=== PATIENT | female | born 1955 | race Caucasian/White ===

== ENCOUNTER 2019-04-01 11:15 | Inpatient (IN) ==
--- NOTE | 2019-04-01 12:29 | XRay Report ---
XR chest 1V portable HISTORY: 63 years-old Female Dyspnea acute shortness of breath COMPARISON: None available TECHNIQUE: Portable AP view of the chest FINDINGS: Cardiac silhouette is enlarged. There is mild pulmonary vascular congestion. No pneumothorax, large p leural effusion or focal airspace consolidation. No overt pulmonary edema. Degenerative changes of th e shoulders and spine. IMPRESSION: 1. Cardiomegaly with pulmonary vascular congestion. 2. No focal airspace consolidation to suggest pneumonia. The above report was generated using voice recognition software. It may contain grammatical, syntax o r spelling errors. Electronically signed by: Los Diego M.D. 04/01/2019 12:28 PM
[2019-04-01] MEDS ORDERED: ALBUT/IPRATROP 3MG/0.5MG NEB 3 ML VIAL NEB STA (12:47)
[2019-04-01] MEDS ORDERED: methylPREDNISolone 125 MG/2 ML VIAL IV STA ×2 (12:47→15:16)
[2019-04-01 13:04] LABS: Basophils # (auto) 0.02 K/uL (0-0.2); Basophils % (auto) 0.1 %; Eosinophils # (auto) 0.06 K/uL (0-0.5); Eosinophils % (auto) 0.4 %; Hematocrit (blood only) 25.5 % (37-47); Hemoglobin 8.1 g/dL (12.0-16.0); Immature Granulocytes # (auto) 0.16 K/uL (0.00-0.02); Immature Granulocytes % (auto) 1.1 %; Lymphocytes # (auto) 0.65 K/uL (1.2-3.4); Lymphocytes % (auto) 4.6 %; Mean Corpuscular Hemoglobin 33.3 pg (25-34); Mean Corpuscular Hgb Conc 31.8 g/dL (32-36); Mean Corpuscular Volume 104.9 fL (80-100); Mean Platelet Volume 8.7 fL (7.4-10.4); Monocytes # (auto) 0.89 K/uL (0.11-0.59); Monocytes % (auto) 6.2 %; Neutrophils # (auto) 12.49 K/uL (1.4-6.5); Neutrophils % (auto) 87.6 %; Platelet Count 320 K/uL (130-400); RDW Coefficient of Variation 17.3 % (11.5-14.5); RDW Standard Deviation 66.7 fL (36.4-46.3); Red Blood Count 2.43 M/uL (4.2-5.4); White Blood Count 14.27 K/uL (4.8-10.8)
[2019-04-01 13:08] LABS: Base Excess VBG 7.9 mEq/L; Oxygen Saturation VBG 83.3 %; pH VBG 7.43 (7.36-7.41)
[2019-04-01 13:15] LABS: INR 1.1 (0.9-1.1); Partial Thromboplastin Time 26.2 Seconds (21.0-31.0); Prothrombin Time 11.2 Seconds (9.0-12.0)
[2019-04-01 13:21] LABS: Albumin Level 3.4 gm/dl (3.4-5.0); BUN Creatinine Ratio 16.3 (10-20); Calcium 8.3 mg/dl (8.5-10.1); Creatinine Clr Calc Pharmacy 47.5 ml/min; Est GFR (African American) 41.2; Est GFR (Non-African American) 35.5; Magnesium 1.8 mg/dl (1.8-2.4); Potassium 4.2 mmol/L (3.5-5.1)
[2019-04-01] MEDS: SODIUM CHLORIDE 0.9% 1000ML 1,000 ML IV SCH ×2 (13:23→22:10)
[2019-04-01 13:31] LABS: Albumin Globulin Ratio 0.9 (0.9-2); Bilirubin,Total 0.4 mg/dl (0.2-1); Globulin 3.9 gm/dl (2.5-4.0); Total Protein 7.3 gm/dl (6.4-8.2); Troponin I 0.17 ng/ml (0-0.045)
--- NOTE | 2019-04-01 14:10 | Emergency Department Note ---
Entered by Jarred Ram acting as a scribe for ED Provider Note CHIEF COMPLAINT: Shortness of breath HISTORY OF PRESENT ILLNESS: The patient is a 63 year old female that presents to the ED with a chief complaint of constant shortness of breath that started about 2 days ago. The patient states she has a history of asthma but is not a smoker nor has she been exposed to any chemicals or gases. Per the patient's EMR she had a uterine biopsy done 2 days ago and was kept overnight in the hospital. During this time she had trouble keeping her pulse ox up however she was not discharged with supplemental oxygen. The patient adds that this morning she woke up in the bathr oom and has no recollection of how she got there. When EMS arrived on scene the patient was confused with a pulse ox of 82% on room air. The patient was given a duoneb and albuterol neb by EMS for her wheezing. She was then placed on 2L NC and her pulse ox increased to 87%. After her pulse ox improved she became more alert and oriented, per EMS. The patient endorses a a cough that she has had since being admitted to the [facility] for 3 weeks due to pneumonia. The patient also mentioned that she has had a sore throat since being intubated for the biopsy. The patient reports no bleeding secondary to the biopsy but she does have some discharge. Per the triage note, EMS noticed pill bottles of Oxycodone, Methadone, Ativan and Ambien at the patient's home. Pt denies headache, fevers, chills, diaphoresis, visual changes, neck pain, chest pain, nausea, vomiting, abdominal pain, back pain, melena, hematochezia, urinary symptoms, numbness, weakness, lymphadenopathy, rash, or other complaints. REVIEW OF SYSTEMS: See HPI for pertinent positives and negatives. A total of ten systems were reviewed and were otherwise negative. PMHx/PSHx: Vulvar cancer, PNA, Sepsis, and Respiratory failure. SOCIAL HISTORY: Patient lives at home. PHYSICAL EXAM: GENERAL: Awake, alert, tired-appearing, in no distress HENT: Normocephalic, atraumatic. Oropharynx unremarkable. EYES: Normal conjunctiva. Sclera non-icteric. NECK: Inspection normal. Non-tender. Supple. No nuchal rigidity. FROM. No masses. RESPIRATORY: Coarse breath sounds, diminished bilaterally. No wheezes. No rales. Normal respiratory effort. CARDIAC: Normal rate. Normal rhythm. No murmurs. No rubs. Extremities warm and well perfused. Pulses equal. No JVD. GI: Soft, non-distended. No tenderness to palpation. No rebound or guarding. No masses. RECTAL: Deferred. MUSCULOSKELETAL: Atraumatic. Chest examination reveals no tenderness. The back is symmetrical on inspection without obvious abnormality. There is no CVA tenderness to palpation. No joint edema. LOWER EXTREMITIES: Calves are equal size bilaterally and non-tender. No edema. No discoloration. NEURO: Normal sensorium. Oriented. No sensory or motor deficits noted. GCS 15 SKIN: No rash or jaundice noted. EMERGENCY DEPARTMENT COURSE: 1242: Past medical records reviewed. The patient was evaluated in room C07, and a complete history and physical examination were performed. 1405: I spoke to Dr. Chalino Rothman [facility] Hospitalist about the patient's case. He is going to review the patient's medical record to see who admitted her at [facility]. 1415: I reevaluated the patient and she is resting in bed. I updated her on results and the plan of treatment which she is agreeable with. I spoke to Dr. Chalino Rothman [facility] Hospitalist and he is going to accept the patient for further evaluation. 1517: I reassessed the patient and discussed getting a CT scan of her chest. She agreed. MEDICAL DECISION MAKING: Prior records/ancillary studies reviewed. The patient had her [employer] procedure and was observed overnight due to postop hypoxia. She was anemic on laboratory studies there with a hemoglobin of 9. Records were obtained from her [facility] hospital admission for pneumonia. CT PE study did not reveal any pulmonary embolus but did reveal infiltrate. She was treated with IV Rocephin and Zithromax. The Zithromax was then discontinued secondary to QTC prolongation. Nursing notes reviewed and agree them. The patient's history was concerning for hypoxia, altered mental status. Differential diagnosis: Etiologies such as infection, hypoglycemia, electrolyte abnormalities, cardiac sources, intracerebral event, toxicologic, neurologic, pulmonary embolism, ACS, asthma, COPD, pneumonia, as well as others were entertained. Physical examination: As above. The patient was oriented. Her hypoxia was controlled with supplemental oxygen. ER treatment provided: IV Lock Normal saline hydration Supplemental oxygen DuoNeb Solu-Medrol On reassessment the patient felt better. The patient was prepped for CT imaging due to her dye allergy. She was given IV Solu-Medrol, Pepcid and Benadryl. She also has significant fears of claustrophobia about imaging and was given Ativan IV 1 mg Diagnostics interpretation by me: ECG: No acute ischemia. The labs revealed a moderate leukocytosis and anemia on CBC. Chemistry panel revealed borderline renal function but no significant electrolyte abnormality. No clear sign of UTI. BNP moderately elevated. Troponin mildly elevated as well. Imaging studies: Chest x-ray negative for pneumonia. There is cardiomegaly present and some congestion. Head CT and CT PE study as below. No acute intracranial process. No obvious pulmonary emboli noted. Ultrasound imaging of her legs did not reveal any evidence of DVT. The patient had altered mental status and market hypoxia noted at home. She does have a history of asthma. She had wheezing for EMS and was given 2 breathing treatments and a third here. She is feeling somewhat better at this time. She does have an elevated troponin as well as a BNP. She does not have any history of CHF by her report. Further management is necessary in the hospital. Consultation: A consultation was placed with the hospitalist. The case was discussed and diagnostics were reviewed. The patient was evaluated in the ER for further treatment. Critical Care: I have personally spent greater than 38 minutes of critical care time in the direct management of this patient. This includes bedside care, interpretation of diagnostic studies, and testing, discussion with consultants, patient, and family members, and other required patient management activities. This 34 minutes is in excess of all separately billable procedures. IMPRESSION: Hypoxia Altered mental status Elevated troponin Anemia CHF PLAN: Being evaluated by hospitalist The sauloibbigg's documentation has been prepared under my direction and personally reviewed by me in its entirety. I confirm that the note above accurately reflects all work, treatment, procedures, and medical decision making performed by me. Impression & Plan Hypoxia, CHF (congestive heart failure), Altered mental status, Elevated troponin, Anemia Past Med/Surg History Medical History Pneumonia Respiratory failure Sepsis Vulvar cancer Family History Other No pertinent family history in first degree relatives Social History Preferred Language: Occitan Beliefs That Will Affect Care: None Current Living Situation: Alone Feels Safe at Home: Yes Smoking Status: Never smoker Results & Data Vital Signs Vital Signs - 24 hr 04/01/19 11:31 04/01/19 12:11 04/01/19 13:03 Temperature 37.0 C Temperature Source Oral Pulse Rate 70 Pulse Rate [Apical] 70 Respiratory Rate 20 16 Respiratory Effort / Characteristics Non-Labored Spontaneous Non-Labored Spontaneous Respiratory Depth Normal Normal Respiratory Pattern Regular Regular Blood Pressure 158/76 H Blood Pressure [Right Arm] 178/93 H Blood Pressure Mean 103 Blood Pressure Mean [Right Arm] 121 Blood Pressure Position Lying Blood Pressure Position [Right Arm] Lying Pulse Oximetry 87 L 95 100 Oxygen Delivery Method Room Air Nasal Cannula Nasal Cannula Oxygen Flow Rate 2 2 Sepsis Recent Fever Within 48 Hours No Sepsis New/Unexplained Change in Mental Status No Sepsis Action Taken by Nursing No Action Required 04/01/19 13:06 04/01/19 14:13 04/01/19 16:01 Temperature Temperature Source Pulse Rate Pulse Rate [Apical] 70 82 73 Respiratory Rate 18 20 19 Respiratory Effort / Characteristics Non-Labored Spontaneous Non-Labored Spontaneous Respiratory Depth Normal Respiratory Pattern Blood Pressure Blood Pressure [Right Arm] 179/88 H 165/97 H Blood Pressure Mean Blood Pressure Mean [Right Arm] 118 119 Blood Pressure Position Blood Pressure Position [Right Arm] Lying Lying Pulse Oximetry 100 93 95 Oxygen Delivery Method Nasal Cannula Nasal Cannula Nasal Cannula Oxygen Flow Rate 2 2 2 Sepsis Recent Fever Within 48 Hours Sepsis New/Unexplained Change in Mental Status Sepsis Action Taken by Half-Way Medications Current Medication List: was personally reviewed by me Laboratory Data Attestation: I reviewed the patient's lab results. Result diagrams: 04/01/19 12:53 04/01/19 12:53 Lab Results 04/01/19 04/01/19 04/01/19 Range/Units 12:53 12:53 12:53 WBC 14.27 H (4.8-10.8) K/uL RBC 2.43 L (4.2-5.4) M/uL Hgb 8.1 L (12.0-16.0) g/dL Hct 25.5 L (37-47) % MCV 104.9 H (80-100) fL MCH 33.3 (25-34) pg MCHC 31.8 L (32-36) g/dL RDW Std Deviation 66.7 H (36.4-46.3) fL RDW Coeff of Rylan 17.3 H (11.5-14.5) % Plt Count 320 (130-400) K/uL MPV 8.7 (7.4-10.4) fL Immature Gran % (Auto) 1.1 % Neut % (Auto) 87.6 % Lymph % (Auto) 4.6 % Graham % (Auto) 6.2 % Eos % (Auto) 0.4 % Baso % (Auto) 0.1 % Immature Gran # (Auto) 0.16 H (0.00-0.02) K/uL Neut # (Auto) 12.49 H (1.4-6.5) K/uL Lymph # (Auto) 0.65 L (1.2-3.4) K/uL Graham # (Auto) 0.89 H (0.11-0.59) K/uL Eos # (Auto) 0.06 (0-0.5) K/uL Baso # (Auto) 0.02 (0-0.2) K/uL PT 11.2 (9.0-12.0) Seconds INR 1.1 (0.9-1.1) APTT 26.2 (21.0-31.0) Seconds PTT Ratio 1.0 VBG pH (7.36-7.41) VBG pCO2 (38-50) mmHg VBG pO2 mmHg VBG HCO3 mmol/L VBG O2 Saturation % VBG Base Excess mEq/L Barometric Pressure mm/Hg Sodium 137 (136-145) mmol/L Potassium 4.2 (3.5-5.1) mmol/L Chloride 99 (98-107) mmol/L Carbon Dioxide 31 (21-32) mmol/L Anion Gap 7.0 (3-11) BUN 25 H (7-18) mg/dl Creatinine 1.55 H (0.6-1.2) mg/dl Est Cr Clr Drug Dosing 47.5 ml/min Est GFR ( Amer) 41.2 Est GFR (Non-Af Amer) 35.5 BUN/Creatinine Ratio 16.3 (10-20) Glucose 99 (70-99) mg/dl POC Lactic Acid Roger (0.90-1.70) mmol/L Calcium 8.3 L (8.5-10.1) mg/dl Magnesium 1.8 (1.8-2.4) mg/dl Total Bilirubin 0.4 (0.2-1) mg/dl AST 51 H (15-37) U/L ALT 20 (12-78) U/L Alkaline Phosphatase 91 (45-117) U/L Total Creatine Kinase 79 (26-192) U/L Troponin I 0.170 H* (0-0.045) ng/ml NT-Pro-B Natriuret Pep 25585 H (0-900) pg/ml Total Protein 7.3 (6.4-8.2) gm/dl Albumin 3.4 (3.4-5.0) gm/dl Globulin 3.9 (2.5-4.0) gm/dl Albumin/Globulin Ratio 0.9 (0.9-2) Urine Color Urine Appearance (Clear) Urine pH (4.5-7.5) Ur Specific Waldron (1.000-1.030) Urine Protein (Negative) Urine Glucose (UA) (Negative) Urine Ketones (Negative) Urine Blood (Negative) Urine Nitrite (Negative) Urine Bilirubin (Negative) Urine Urobilinogen (Negative) Ur Leukocyte Esterase (Negative) Urine WBC (Auto) (0-5) /hpf Urine RBC (Auto) (0-4) /hpf U Hyaline Cast (Auto) (0-5) /lpf U Epithel Cells (Auto) (0-5) /lpf Urine Bacteria (Auto) (Negative) 04/01/19 04/01/19 04/01/19 Range/Units 12:53 13:00 14:18 WBC (4.8-10.8) K/uL RBC (4.2-5.4) M/uL Hgb (12.0-16.0) g/dL Hct (37-47) % MCV (80-100) fL MCH (25-34) pg MCHC (32-36) g/dL RDW Std Deviation (36.4-46.3) fL RDW Coeff of Rylan (11.5-14.5) % Plt Count (130-400) K/uL MPV (7.4-10.4) fL Immature Gran % (Auto) % Neut % (Auto) % Lymph % (Auto) % Graham % (Auto) % Eos % (Auto) % Baso % (Auto) % Immature Gran # (Auto) (0.00-0.02) K/uL Neut # (Auto) (1.4-6.5) K/uL Lymph # (Auto) (1.2-3.4) K/uL Graham # (Auto) (0.11-0.59) K/uL Eos # (Auto) (0-0.5) K/uL Baso # (Auto) (0-0.2) K/uL PT (9.0-12.0) Seconds INR (0.9-1.1) APTT (21.0-31.0) Seconds PTT Ratio VBG pH 7.43 H (7.36-7.41) VBG pCO2 51 H (38-50) mmHg VBG pO2 51 mmHg VBG HCO3 33 mmol/L VBG O2 Saturation 83.3 % VBG Base Excess 7.9 mEq/L Barometric Pressure 736.0 mm/Hg Sodium (136-145) mmol/L Potassium (3.5-5.1) mmol/L Chloride (98-107) mmol/L Carbon Dioxide (21-32) mmol/L Anion Gap (3-11) BUN (7-18) mg/dl Creatinine (0.6-1.2) mg/dl Est Cr Clr Drug Dosing ml/min Est GFR ( Amer) Est GFR (Non-Af Amer) BUN/Creatinine Ratio (10-20) Glucose (70-99) mg/dl POC Lactic Acid Roger 0.93 (0.90-1.70) mmol/L Calcium (8.5-10.1) mg/dl Magnesium (1.8-2.4) mg/dl Total Bilirubin (0.2-1) mg/dl AST (15-37) U/L ALT (12-78) U/L Alkaline Phosphatase (45-117) U/L Total Creatine Kinase (26-192) U/L Troponin I (0-0.045) ng/ml NT-Pro-B Natriuret Pep (0-900) pg/ml Total Protein (6.4-8.2) gm/dl Albumin (3.4-5.0) gm/dl Globulin (2.5-4.0) gm/dl Albumin/Globulin Ratio (0.9-2) Urine Color Yellow Urine Appearance Cloudy A (Clear) Urine pH 5.0 (4.5-7.5) Ur Specific Waldron 1.020 (1.000-1.030) Urine Protein 1+ H (Negative) Urine Glucose (UA) Negative (Negative) Urine Ketones Negative (Negative) Urine Blood 2+ H (Negative) Urine Nitrite Negative (Negative) Urine Bilirubin Negative (Negative) Urine Urobilinogen Negative (Negative) Ur Leukocyte Esterase 2+ H (Negative) Urine WBC (Auto) >30 H (0-5) /hpf Urine RBC (Auto) 5-10 H (0-4) /hpf U Hyaline Cast (Auto) 5-10 H (0-5) /lpf U Epithel Cells (Auto) 5-10 H (0-5) /lpf Urine Bacteria (Auto) Negative (Negative) Administered Medications Albuterol (Duoneb) 3 ml NEB Q6R TERESA Stop: 05/01/19 18:59 Last Admin: 04/01/19 19:19 Dose: 3 ml Documented by: [id number] Sodium Chloride (Nss 1000ml) 1,000 mls @ 125 mls/hr IV .Q8H TERESA Stop: 05/01/19 12:14 Last Admin: 04/01/19 13:23 Dose: 125 mls/hr Documented by: [id number] Ioversol (Optiray 320 125ml) 118 ml IV ONCE PRN PRN Reason: Interaction Checking Stop: 04/05/19 16:37 Last Admin: 04/01/19 16:38 Dose: 118 ml Documented by: [id number] Discontinued Medications Albuterol (Duoneb) 3 ml NEB NOW STA Stop: 04/01/19 12:48 Last Admin: 04/01/19 13:04 Dose: 3 ml Documented by: [id number] Diphenhydramine HCl (Benadryl) 25 mg IV NOW STA Stop: 04/01/19 15:17 Last Admin: 04/01/19 15:54 Dose: 25 mg Documented by: [id number] Famotidine (Pepcid 20mg Iv Push) Confirm Administered Dose 20 mg IV .STK-MED ONE Stop: 04/01/19 15:53 Last Admin: 04/01/19 15:54 Dose: 20 mg Documented by: [id number] Lorazepam (Ativan) 1 mg in 2 mls @ 2 mls/min IV NOW STA Stop: 04/01/19 15:17 Last Admin: 04/01/19 15:54 Dose: 2 mls/min Documented by: [id number] Methylprednisolone (Solumedrol) 125 mg IV NOW STA Stop: 04/01/19 12:48 Last Admin: 04/01/19 13:23 Dose: 125 mg Documented by: [id number] Methylprednisolone (Solumedrol) 125 mg IV NOW STA Stop: 04/01/19 15:17 Last Admin: 04/01/19 17:37 Dose: Not Given Documented by: [id number] Imaging Data Radiologist's Impression: Radiology results as stated below per my review and the radiologist's interpretation: XR chest 1V portable HISTORY: 63 years-old Female Dyspnea acute shortness of breath COMPARISON: None available TECHNIQUE: Portable AP view of the chest FINDINGS: Cardiac silhouette is enlarged. There is mild pulmonary vascular congestion. No pneumothorax, large pleural effusion or focal airspace consolidation. No overt pulmonary edema. Degenerative changes of the shoulders and spine. IMPRESSION: 1. Cardiomegaly with pulmonary vascular congestion. 2. No focal airspace consolidation to suggest pneumonia. The above report was generated using voice recognition software. It may contain grammatical, syntax or spelling errors. Electronically signed by: Los Diego M.D. 04/01/2019 12:28 PM BILATERAL LOWER EXTREMITY VENOUS DOPPLER HISTORY: Acute pain and swelling of the bilateral lower extremities eval for dvt COMPARISON STUDY: None. FINDINGS: Study is mildly limited secondary to patient body habitus with limited evaluation of the calf veins. There is normal compressibility, flow, and augmentation within the bilateral lower extremity deep venous systems. IMPRESSION: No DVT within the right or left lower extremity. Electronically signed by: Los Diego M.D. 04/01/2019 2:[address] CT DOSE: HISTORY: Syncope. Altered mental status. TECHNIQUE: Multiaxial CT images of the head were performed without the use of intravenous contrast. Automated exposure control was utilized for this study. A dose lowering technique was utilized adhering to the principles of ALARA. Comparison: None. Findings: Mild motion artifact. The paranasal sinuses and mastoid air cells are clear. The calvarium and skull base are intact. The ventricles and sulci are within normal limits. There is no mass, hematoma, midline shift, or acute infarct. Impression: No acute intracranial abnormality. Electronically signed by: Lit Nash M.D. 04/01/2019 4:[address] ANGIOGRAM OF THE CHEST CLINICAL HISTORY: Atypical chest pain. Possible pulmonary embolism. SHORTNESS OF BREATH COMPARISON STUDY: Chest x-ray dated 04/01/2019 TECHNIQUE: Following the IV administration of 118 mL of Optiray-320, CT angiogram of the thorax was performed from the thoracic inlet to the lung bases utilizing the pulmonary embolus protocol. Images are reviewed in the axial, sagittal, and coronal planes. IV contrast was administered without complication. MIP imaging was performed. A dose lowering technique was utilized adhering to the principles of ALARA. CT DOSE: 1755.90 mGy.cm FINDINGS: No pathologically enlarged axillary mediastinal or hilar lymph nodes were visualized. There is no evidence of thoracic aortic aneurysm. There is decreased signal within the right innominate artery just proximal to the common carotid branch. It is unclear whether this represents thrombus or artifact. No central embolus is visualized. Evaluation of subsegmental emboli is limited due to respiratory motion artifact as well as artifact due to patient's body habitus, inability to be scanned with arms above her head. No pleural effusions are visualized. There are low lung volumes. Mild interstitial prominence is likely related to hypoventilatory study. There is no lobar consolidation. IMPRESSION: 1. Somewhat limited study from a technical standpoint. No central pulmonary emboli identified. 2. Hypoventilatory study. No evidence of lobar consolidation 3. Right innominate artery thrombus versus artifact Electronically signed by: Brenton Kilpatrick M.D. 04/01/2019 4:46 PM ECG Data Attestation: I personally reviewed and interpreted this ECG as follows: Indication: + SOB/dyspnea Rate (beats per minute): 71 Rhythm: sinus rhythm ECG Intervals/blocks: + Right Bundle branch block (incomplete) and + Normal QRS ECG Lester: + Normal ECG ST segments: no ST depression and no ST elevation ECG Findings: + PACs and + Other (nonspecific ST segment abnormalities); no PVCs Blood Pressure Blood Pressure Findings: Elevated blood pressure Blood Pressure Disposition: further management by hospitalist Discharge Plan Visit Data *Final* Discharge Date/Time: 04/01/19 18:55 Chief Complaint: Respiratory Problems ED Provider: Khadar Moulton Discharge Problem: Hypoxia, CHF (congestive heart failure), Altered mental status, Elevated troponin, Anemia Patient Disposition: Admitted As Inpatient Discharge Instructions Interventions: ED Discharge Assessment Last Done: 04/01/19 18:55 Discharge Problem: CHF (congestive heart failure) Qualifiers: Heart failure type: unspecified Heart failure chronicity: acute Qualified Code(s): I50.9 - Heart failure, unspecified Altered mental status Qualifiers: Altered mental status type: unspecified Qualified Code(s): R41.82 - Altered mental status, unspecified Anemia Qualifiers: Anemia type: unspecified type Qualified Code(s): D64.9 - Anemia, unspecified The scribe's documentation has been prepared under my direction and personally reviewed by me in its entirety. I confirm that the note above accurately reflects all work, treatment, procedures, and medical decision making performed by me.
[2019-04-01 14:35] LABS: Appearance Urine Cloudy (Clear); Bacteria Urine Automated Negative (Negative); Bilirubin Urine Negative (Negative); Blood Urine 2+ (Negative); Color Urine Yellow; Glucose Urine UA Negative (Negative); Ketones Urine Negative (Negative); Leukocyte Esterase Urine 2+ (Negative); Nitrite Urine Negative (Negative); Protein Urine 1+ (Negative); Urobilinogen Urine Negative (Negative); WBC Urine Automated >30 /hpf (0-5)
--- NOTE | 2019-04-01 14:51 | Ultrasound Report ---
BILATERAL LOWER EXTREMITY VENOUS DOPPLER HISTORY: Acute pain and swelling of the bilateral lower extremities eval for dvt COMPARISON STUDY: None. FINDINGS: Study is mildly limited secondary to patient body habitus with limited evaluation of the ca lf veins. There is normal compressibility, flow, and augmentation within the bilateral lower extremit y deep venous systems. IMPRESSION: No DVT within the right or left lower extremity. Electronically signed by: Los Diego M.D. 04/01/2019 2:50 PM
[2019-04-01] MEDS ORDERED: LORazepam 1 MG/2 ML VIAL IV STA (15:16)
[2019-04-01] MEDS ORDERED: DiphenhydrAMINE HCL 50 MG/ML VIAL IV STA (15:16)
[2019-04-01] MEDS ORDERED: FAMOTIDINE 20 MG in SYRINGE 3 ML IV SCH (15:30)
[2019-04-01] MEDS ORDERED: FAMOTIDINE 20MG/5ML IV PUSH IV ONE (15:52)
[2019-04-01] MEDS ORDERED: ACETAMINOPHEN 325 MG TAB PO PRN (16:28)
[2019-04-01] MEDS ORDERED: ONDANSETRON INJ 2 MG/ML 2 ML VIAL IV PRN (16:28)
[2019-04-01] MEDS ORDERED: ZOLPIDEM TARTRATE 5 MG TAB PO PRN (16:28)
[2019-04-01] MEDS ORDERED: MAGNESIUM HYDROXIDE SUSP 30 ML UDC PO PRN (16:28)
[2019-04-01] MEDS ORDERED: ALUMINUM/MAGNESIUM SUSP 30 ML UDC PO PRN (16:28)
[2019-04-01] MEDS ORDERED: POLYETHYLENE (MIRALAX) 17 GM PACK PO PRN (16:28)
[2019-04-01] MEDS ORDERED: NON-FORMULARY MEDICATION (Melatonin 5 MG) PO PRN (16:30)
[2019-04-01] MEDS ORDERED: LORazepam 0.5 MG TAB PO PRN (16:30)
[2019-04-01] MEDS ORDERED: ZOLPIDEM TARTRATE 10 MG TAB PO PRN (16:35)
[2019-04-01] MEDS ORDERED: OXYCODONE HCL IR 5 MG TAB (IMMEDIATE RELEASE) PO PRN (16:35)
[2019-04-01] MEDS ORDERED: OXYCODONE/ACETAMINOPHEN 5mg/325mg TAB PO PRN (16:35)
[2019-04-01] MEDS ORDERED: OPTIRAY 320 125ml IV PRN (16:38)
[2019-04-01] MEDS ORDERED: SILVER SULFADIAZINE 1% CR 50 GM JAR TOP SCH (16:45)
--- NOTE | 2019-04-01 16:45 | CT Scan Report ---
HEAD CT NONCONTRAST CT DOSE: HISTORY: Syncope. Altered mental status. TECHNIQUE: Multiaxial CT images of the head were performed without the use of intravenous contrast. A utomated exposure control was utilized for this study. A dose lowering technique was utilized adheri ng to the principles of ALARA. Comparison: None. Findings: Mild motion artifact. The paranasal sinuses and mastoid air cells are clear. The calvarium and skull base are intact. The ventricles and sulci are within normal limits. There is no mass, hemat miguel, midline shift, or acute infarct. Impression: No acute intracranial abnormality. Electronically signed by: Lit Nash M.D. 04/01/2019 4:44 PM
--- NOTE | 2019-04-01 16:54 | CT Scan Report ---
CT ANGIOGRAM OF THE CHEST CLINICAL HISTORY: Atypical chest pain. Possible pulmonary embolism. SHORTNESS OF BREATH COMPARISON STUDY: Chest x-ray dated 04/01/2019 TECHNIQUE: Following the IV administration of 118 mL of Optiray-320, CT angiogram of the thorax was p erformed from the thoracic inlet to the lung bases utilizing the pulmonary embolus protocol. Images a re reviewed in the axial, sagittal, and coronal planes. IV contrast was administered without complica tion. MIP imaging was performed. A dose lowering technique was utilized adhering to the principles o f ALARA. CT DOSE: 1755.90 mGy.cm FINDINGS: No pathologically enlarged axillary mediastinal or hilar lymph nodes were visualized. There is no evidence of thoracic aortic aneurysm. There is decreased signal within the right innomina te artery just proximal to the common carotid branch. It is unclear whether this represents thrombus or artifact. No central embolus is visualized. Evaluation of subsegmental emboli is limited due to respiratory mot ion artifact as well as artifact due to patient's body habitus, inability to be scanned with arms abo ve her head. No pleural effusions are visualized. There are low lung volumes. Mild interstitial prominence is likely related to hypoventilatory study. There is no lobar consolidation. IMPRESSION: 1. Somewhat limited study from a technical standpoint. No central pulmonary emboli identified. 2. Hypoventilatory study. No evidence of lobar consolidation 3. Right innominate artery thrombus versus artifact Electronically signed by: Brenton Kilpatrick M.D. 04/01/2019 4:46 PM
--- NOTE | 2019-04-01 17:03 | History & Physical Report ---
Date of Service April 01, 2019 Assessment & Plan (1) Acute respiratory failure with hypoxia: Confusion/hypoxic encephalopathy secondary to above, improved immediately after improving O2 sat Likely multifactorial secondary to CHF and COPD Also does have bronchitis versus early pneumonia CT angiogram done in ED and ruled out pulmonary embolism (2) Congestive heart failure, unspecified: Positive troponin likely demand ischemia Plan: admit to telemetry obtain serial cardiac enz pain management repeat EKG prn chest pain Check hemoglobin A1c/lipids to stratify patient risk factors I/Os 2Decho gentle diuresis, will only use 20 mg of Lasix IV twice daily especially with recent contrast exposure Mucomyst 600 twice daily x3 days for contrast-induced nephropathy control blood pressure, afterload and preload DVT prophylaxis (3) COPD exacerbation: Start patient on bronchodilators, DuoNeb inhalation nebulizer 4 times daily Hold of Solu-Medrol giving her active cancer Chest imaging reviewed, showed no active pneumonia but likely bacterial bronchitis Due to history of QTC prolongation we will hold of azithromycin Pulmonary consultation if no improvement as needed Patient will need pulmonary function test in 6 weeks after resolution (4) UTI (urinary tract infection): Follow-up blood cultures/urine culture Continue ceftriaxone Lactobacillus to prevent C. difficile (5) Vulvar cancer: Vulvar area appears to be inflamed, no erythema or abscess, director of software engineering advised her not to add her to put anything on it, refused nystatin powder (6) Atrial fibrillation: Continue Eliquis (7) Hypothyroidism: Continue Synthroid and check TSH (8) Chronic kidney disease, stage III (moderate): Monitor renal function closely History of Present Illness . 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 The day before yesterday she was admitted to [facility] for exam under anesthesia, vulvar biopsy and dilation and curettage, postprocedure she was hypoxic and she was kept for 2023 hrs. the next day she was discharged home. Patient stated that after she went home she was visited by some friends after the friend left she does not remember anything happen until she found herself sitting on the commode and was confused and not feeling well, she called her friend's to come and see her, on arrival she was confused he called 911 she was found to be hypoxic, 87% in room air required 2 L of oxygen and she was brought to the hospital for further evaluation. She stated that she takes Eliquis for atrial fibrillation but she had to stop it 2 days prior to the procedure, and then she said that she does not remember taking it after that as she was confused. She also stated that she has been coughing some yellowish sputum and wheezing. Due to radiation induced skin injury to her valvular area she has been followed up by pain management who had her on methadone 10 mg twice daily. And oxycodone, she does not think that she took any extra dose of her medicine. She will be admitted for further evaluation and management Allergies Allergy/AdvReac Type Severity Reaction Status Date / Time aspirin Allergy Intermediate HIVES, Unverified 04/01/19 15:16 ITCHING naproxen Allergy Intermediate HIVES Unverified 04/01/19 15:16 iodine Allergy Unknown Verified 07/01/16 08:06 CONTRASTMEDIA Allergy Unknown Unknown Uncoded 04/01/19 15:16 IV CONTRAST=RESPIRATORY Allergy Unknown Unknown Uncoded 04/01/19 15:16 DIFFICULTIES IV DYE Allergy Unknown Unknown Uncoded 04/01/19 15:16 PINEAPPLE=SWOLLEN LIPS AND Allergy Unknown Unknown Uncoded 04/01/19 15:16 TONGUE SMOKE Allergy Unknown Unknown Uncoded 04/01/19 15:16 Home Medications Home Medications Medication Instructions Recorded Confirmed Type amlodipine 10 mg PO DAILY 04/01/19 04/01/19 History amoxicillin 500 mg PO DIRECTED PRN 04/01/19 04/01/19 History apixaban [Eliquis] 5 mg PO BID 04/01/19 04/01/19 History bupropion HCl 150 mg PO QAM 04/01/19 04/01/19 History cyanocobalamin (vitamin B-12) 1,000 mcg PO DAILY 04/01/19 04/01/19 History [Vitamin B-12] cyanocobalamin (vitamin B-12) 50 mcg PO DAILY 04/01/19 04/01/19 History [Vitamin B-12] levothyroxine [Synthroid] 175 mcg PO DAILY 04/01/19 04/01/19 History lorazepam [Ativan] 0.5 mg PO BID PRN 04/01/19 04/01/19 History lorazepam [Ativan] 1 mg PO DIRECTED PRN 04/01/19 04/01/19 History losartan 100 mg PO DAILY 04/01/19 04/01/19 History melatonin 5 mg PO HS PRN 04/01/19 04/01/19 History metformin 500 mg PO DAILY 04/01/19 04/01/19 History methadone 0 mg PO Q12H 04/01/19 04/01/19 History oxycodone 10 mg PO Q4H PRN 04/01/19 04/01/19 History oxycodone-acetaminophen 1 tab PO Q4H PRN 04/01/19 04/01/19 History pantoprazole 40 mg PO BID 04/01/19 04/01/19 History phenazopyridine 200 mg PO TID 04/01/19 04/01/19 History silver sulfadiazine 1 applic TOPICAL DIRECTED 04/01/19 04/01/19 History zolpidem 10 mg PO HS PRN 04/01/19 04/01/19 History Past Med/Surg History Medical History Pneumonia Respiratory failure Sepsis Vulvar cancer Family History Other No pertinent family history in first degree relatives Social History Feels Safe at Home: Yes Smoking Status: Never smoker Review of Systems Review of Systems: Review of system Constitutional: No fever / no chills / no sweats / no weakness / no fatigue Eyes: no blurring of vision / no eye pain / no discharge / no redness ENT: no hearing loss / no epistaxis /no swallowing problems Respiratory: Shortness of breath, significant wheezing, productive cough/dry cough / no hemoptysis Cardiovascular: no Chest pain / no lower extremity edema / no palpitation Abdomen: no pain / no nausea / no vomiting / no constipation Musculoskeletal: no joint pain / no muscle pain / no joint swelling Genitourinary: no dysuria / no incontinence / no urinary retention Neurologic: no focal weakness / no numbness/tingling / no ataxia Psychiatric: no depression symptoms / no anxiety / no insomnia Endocrine: no excessive thirst / no excessive urination Hematologic: no abnormal bleeding / no bruising / no LN swelling Skin: No rash / no pallor Physical Exam Physical Exam: Physical examination General patient appears to be obese, comfortable, not in acute distress HEENT: Atraumatic , normocephalic /no jaundice /no pallor /anicteric /no dry muc ous membrane /normal external ear inspection Neck: Supple /no swelling /central trach Heart: S1/S2 normal/regular rate and rhythm/no gallop /no rub /no murmur Lungs: Decreased air entry bilaterally, generalized wheezing both lung black, scattered rhonchi, no chest wall tenderness Abdomen: Soft/nontender/no guarding/no rebound/no organomegaly/no pulsatile mass Musculoskeletal: No swelling/no edema/no tenderness/normal range of motion Neuro exam: Awake alert oriented 3/cranial nerves II through XII appear to be intact/sensation intact/moves all extremities/no abnormal movements Psychiatric evaluation: No depressed mood/normal affect Skin: No rash on exposed skin area/no erythema Extremity: Normal pulse/no pitting edema/no clubbing or cyanosis Endocrine/lymphatic: No obvious lymphadenopathy /no lymphedema Results & Data Vital Signs (Past 12 Hours) Vital Signs Temp Pulse Pulse Resp BP BP Pulse Ox 04/01/19 16:01 73 19 165/97 H 95 04/01/19 14:13 82 20 179/88 H 93 04/01/19 13:06 70 18 100 04/01/19 13:03 70 16 178/93 H 100 04/01/19 12:11 95 04/01/19 11:31 37.0 C 70 20 158/76 H 87 L Code Status & VTE Plan VTE Prophylaxis Plan VTE Prophylaxis will be ordered: Yes PG Care Time/CCT Total # of Minutes Spent Total Time Spent with Patient: 50 minutes total time spent is greater than 50% in coordination of care (as documented) at patient's floor/unit and/or counseling patient/family discussion of care with nursing staff
[2019-04-01] MEDS ORDERED: LORazepam 1 MG TAB PO PRN (19:05)
[2019-04-01] MEDS: ALBUT/IPRATROP 3MG/0.5MG NEB 3 ML VIAL NEB SCH (19:19)
[2019-04-01] MEDS: FUROSEMIDE 20 MG in SYRINGE 0 ML IV SCH (19:56)
[2019-04-01] MEDS ORDERED: cefTRIAXone SODIUM 2,000 MG in DEXTROSE 5% 50 ML IV SCH (20:00)
[2019-04-01] MEDS ORDERED: cefTRIAXone SODIUM 1,000 MG/50 ML BAG IV SCH (20:00)
[2019-04-01 20:05] LABS: Ferritin 626.8 ng/ml (8-388)
[2019-04-01 20:06] LABS: Folate (Folic Acid) 5.59 ng/ml (>5.38)
[2019-04-01] MEDS: LACTOBACILLUS ACIDOPHILUS 1 GM PACK PO SCH (20:12)
[2019-04-01] MEDS: AMLODIPINE BESYLATE 5 MG TAB PO SCH (20:12)
[2019-04-01] MEDS: BENZONATATE 100 MG CAPSULE PO SCH (20:13)
[2019-04-01] MEDS: PHENAZOPYRIDINE HCL 200 MG TAB PO SCH (20:13)
[2019-04-01] MEDS: PANTOprazole 40 MG TAB PO SCH (20:14)
[2019-04-01] MEDS: APIXABAN 5 MG TABLET PO SCH (20:14)
[2019-04-01] MEDS: ACETYLCYSTEINE 600 MG CAP PO SCH (20:14)
[2019-04-01 20:18] LABS: Reticulocyte % 3.7 % (0.5-2.0); Reticulocytes # 0.09 10^6/uL (0.02-0.10)
[2019-04-01] MEDS: PATIENT'S OWN CONTROLLED MED SCH (22:08)
[2019-04-01] MEDS: METHADONE ORAL SOLN 2 MG/ML PO SCH (22:08)
[2019-04-01 22:50] LABS: Anisocytosis Present; Macrocytosis Present; Polychromasia 1+
[2019-04-02] MEDS: ALBUT/IPRATROP 3MG/0.5MG NEB 3 ML VIAL NEB SCH ×3 (01:11→13:13)
[2019-04-02 05:46] LABS: Hematocrit (blood only) 27.3 % (37-47); Hemoglobin 8.6 g/dL (12.0-16.0); Mean Corpuscular Hemoglobin 32.7 pg (25-34); Mean Corpuscular Hgb Conc 31.5 g/dL (32-36); Mean Corpuscular Volume 103.8 fL (80-100); Mean Platelet Volume 9.1 fL (7.4-10.4); Nucleated RBC # (auto) 0.04 K/uL (0-0); Nucleated RBC % (auto) 0.3 %; Platelet Count 319 K/uL (130-400); RDW Coefficient of Variation 17.2 % (11.5-14.5); RDW Standard Deviation 64.7 fL (36.4-46.3); Red Blood Count 2.63 M/uL (4.2-5.4); White Blood Count 12.38 K/uL (4.8-10.8)
[2019-04-02] MEDS: LEVOTHYROXINE SODIUM 175 MCG TABLET PO SCH (06:08)
[2019-04-02 06:17] LABS: Troponin I 0.094 ng/ml (0-0.045)
[2019-04-02 06:21] LABS: Albumin Level 3.4 gm/dl (3.4-5.0); BUN Creatinine Ratio 16.9 (10-20); Calcium 8.6 mg/dl (8.5-10.1); Est GFR (African American) 46.6; Est GFR (Non-African American) 40.2; Magnesium 1.7 mg/dl (1.8-2.4); Potassium 4.1 mmol/L (3.5-5.1)
[2019-04-02 06:23] LABS: Albumin Globulin Ratio 0.8 (0.9-2); Bilirubin,Total 0.4 mg/dl (0.2-1); Globulin 4.2 gm/dl (2.5-4.0); Total Protein 7.6 gm/dl (6.4-8.2)
[2019-04-02] MEDS ORDERED: PERFLUTREN LIPID MICROSPHERE (DEFINITY) IV ONE (07:27)
[2019-04-02 07:39] LABS: Estimated Average Glucose 105 mg/dl; Hemoglobin A1C 5.3 % (4.5-5.6)
[2019-04-02] MEDS: LACTOBACILLUS ACIDOPHILUS 1 GM PACK PO SCH ×3 (08:35→16:48)
[2019-04-02] MEDS: ACETYLCYSTEINE 600 MG CAP PO SCH (08:35)
[2019-04-02] MEDS: APIXABAN 5 MG TABLET PO SCH ×2 (08:36→20:36)
[2019-04-02] MEDS: AMLODIPINE BESYLATE 5 MG TAB PO SCH (08:36)
[2019-04-02] MEDS: FUROSEMIDE 20 MG in SYRINGE 0 ML IV SCH ×2 (08:36→16:49)
[2019-04-02] MEDS: PANTOprazole 40 MG TAB PO SCH ×2 (08:36→20:37)
[2019-04-02] MEDS: BuPROPion XL 150 MG TABCR PO SCH (08:37)
[2019-04-02] MEDS: BENZONATATE 100 MG CAPSULE PO SCH ×2 (08:37→12:50)
[2019-04-02] MEDS: PHENAZOPYRIDINE HCL 200 MG TAB PO SCH ×3 (08:37→20:37)
[2019-04-02] MEDS: METHADONE ORAL SOLN 2 MG/ML PO SCH ×2 (08:39→20:40)
[2019-04-02] MEDS: PATIENT'S OWN CONTROLLED MED SCH ×2 (08:39→20:40)
[2019-04-02] MEDS ORDERED: FUROSEMIDE 40 MG in SYRINGE 0 ML IV ONE (12:30)
--- NOTE | 2019-04-02 17:04 | Hospitalist Progress Note ---
Date of Service April 02, 2019 Assessment & Plan (1) Acute respiratory failure with hypoxia: after further review, seems to be mostly pulmonary edema related. improving. concern on pneumonia initially but this seem to be less likely after further review - will hold abx and follow (2) Congestive heart failure, unspecified: Positive troponin likely demand ischemia echo pending - diurese further. suspect acute on chronic diastolic / HFpEF, but certainly echo will be helpful in defining. for now diurese further since ongoing rales and O2 requirement. once echo returns can tailor med management appropriately (3) COPD exacerbation: seems stable - overall clinical picture appearing more c/w CHF -continue to follow -possibly this is part of why she might need O2 at home? -serial exams / (4) UTI (urinary tract infection): right now not complaining of urinary symptoms - holding rocpehin, will follow. does show gram positives in urine but if no symptoms reasonable likelihood of asymptomatic bacteriuria - continue to follow (5) Vulvar cancer: outpt f/u (6) Atrial fibrillation: Continue Eliquis, rates controlled (7) Hypothyroidism: Continue Synthroid (8) Chronic kidney disease, stage III (moderate): Monitor renal function closely (9) Anemia: pt relates by hx that prior Hgb was 12. not showing acute blood loss. no suspicion for hemolysis (bili normal); anticipated Fe or (semaj w macrocytosis) B12 deficiency - but these appear normal. check retic; follow Hgb. close outpt f/u if situation doesn't "declare itself" while here (10) DVT prophylaxis: anticoagulated Subjective Feeling better and breathing better. Notes that she felt like the main problem was that she did not have oxygen at home at bedtime. She was at [facility] about a month ago for pneumonia, then was at [facility] [address] for the aforementioned biopsies, she noted that they were working to get her oxygen at bedtime set up, she also notes that she should have CPAP because she has sleep apnea, but her sleep study is probably 2 years old. At any rate she is feeling better and breathing better but not yet back to baseline, with an extensive discussion on her situation the working diagnosis and plans, she expressed understanding of all of the above. She also noted that her hemoglobin is about 3 points lower than she remembered it being a month ago. She denies any vomiting blood any melena any hematochezia, she also notes that while she does have vaginal bleeding is the reason for her biopsy that earlier this week it is not even as heavy as a heavy period would be. Her last chemo was in October. Review of Systems Review of Systems: All systems reviewed & are unremarkable except as noted in HPI & below Physical Exam Physical Exam: General she is awake and alert pleasant no distress. HEENT normocephalic atraumatic mucous membranes are moist. Breathing shows her lungs to be clear upper lung black with bibasilar rales and a little bit of course quality to her middle lung. No rhonchi no wheezes no accessory muscle use. Extremities show no cyanosis or clubbing. Skin shows no rashes no pallor or icterus neuro shows no focal deficits. Results & Data Vital Signs (Past 12 Hours) Vital Signs Temp Pulse Pulse Resp BP BP Pulse Ox 04/02/19 15:25 98.1 F 83 21 160/78 H 94 04/02/19 13:13 96 H 20 91 04/02/19 11:34 97.7 F 84 18 164/83 H 95 04/02/19 08:15 87 18 91 04/02/19 07:56 97.5 F L 89 18 163/75 H 95 PG Care Time/CCT Total # of Minutes Spent Total Time Spent with Patient: Total time spent is greater than 50% in coordination of care (as documented) at patient's floor/unit and/or counseling patient: (1) Anemia Anemia type: unspecified type Qualified Code(s): D64.9 - Anemia, unspecified
[2019-04-02] MEDS ORDERED: ALBUT/IPRATROP 3MG/0.5MG NEB 3 ML VIAL NEB PRN (18:43)
[2019-04-03 05:50] LABS: Basophils # (auto) 0.01 K/uL (0-0.2); Basophils % (auto) 0.1 %; Eosinophils # (auto) 0.12 K/uL (0-0.5); Hematocrit (blood only) 29.8 % (37-47); Hemoglobin 9.4 g/dL (12.0-16.0); Immature Granulocytes # (auto) 0.13 K/uL (0.00-0.02); Immature Granulocytes % (auto) 1.1 %; Lymphocytes # (auto) 0.86 K/uL (1.2-3.4); Lymphocytes % (auto) 7.3 %; Mean Corpuscular Hgb Conc 31.5 g/dL (32-36); Mean Corpuscular Volume 104.6 fL (80-100); Mean Platelet Volume 8.9 fL (7.4-10.4); Monocytes # (auto) 0.59 K/uL (0.11-0.59); Neutrophils # (auto) 10.04 K/uL (1.4-6.5); Neutrophils % (auto) 85.5 %; Nucleated RBC # (auto) 0.05 K/uL (0-0); Nucleated RBC % (auto) 0.4 %; Platelet Count 349 K/uL (130-400); RDW Coefficient of Variation 17.3 % (11.5-14.5); RDW Standard Deviation 66.2 fL (36.4-46.3); Red Blood Count 2.85 M/uL (4.2-5.4); White Blood Count 11.75 K/uL (4.8-10.8)
[2019-04-03] MEDS: LEVOTHYROXINE SODIUM 175 MCG TABLET PO SCH (06:38)
[2019-04-03 06:47] LABS: BUN Creatinine Ratio 19.8 (10-20); Calcium 8.4 mg/dl (8.5-10.1); Creatinine Clr Calc Pharmacy 57.5 ml/min; Est GFR (African American) 52.4; Est GFR (Non-African American) 45.2; Potassium 3.3 mmol/L (3.5-5.1)
[2019-04-03] MEDS: METHADONE ORAL SOLN 2 MG/ML PO SCH ×2 (07:40→21:12)
[2019-04-03] MEDS: LACTOBACILLUS ACIDOPHILUS 1 GM PACK PO SCH ×3 (07:40→16:46)
[2019-04-03] MEDS: PATIENT'S OWN CONTROLLED MED SCH ×2 (07:40→21:12)
[2019-04-03] MEDS: AMLODIPINE BESYLATE 5 MG TAB PO SCH (07:42)
[2019-04-03] MEDS: BuPROPion XL 150 MG TABCR PO SCH (07:42)
[2019-04-03] MEDS: PHENAZOPYRIDINE HCL 200 MG TAB PO SCH ×3 (07:42→21:12)
[2019-04-03] MEDS: PANTOprazole 40 MG TAB PO SCH ×2 (07:43→21:12)
[2019-04-03] MEDS: APIXABAN 5 MG TABLET PO SCH ×2 (07:43→21:11)
[2019-04-03] MEDS ORDERED: POTASSIUM CHLORIDE 20 MEQ TABCR PO STA (07:46)
[2019-04-03] MEDS: carvediloL 6.25 MG TAB PO SCH ×2 (08:31→21:11)
[2019-04-03] MEDS ORDERED: FUROSEMIDE 40 MG in SYRINGE 0 ML IV ONE (12:45)
--- NOTE | 2019-04-03 17:08 | Hospitalist Progress Note ---
Date of Service April 03, 2019 Assessment & Plan (1) Acute respiratory failure with hypoxia: appears pulmonary edema related - improving. despite improvements clinically in CHF exacerbation, however, she is still requiring O2 at all times (except maybe at absolute rest) -- since current admission appears to have been CHF driven - most likely is that she still has some pulmonary edema despite normal exam and therefore will try to affect improvement with additional diuresis. however, if she doesn't show much improvmeent with this additional diuresis, concern would be that she may have a chronic degree of hypoxia more than she realizes -- this would be corroborated by how generally asymptomatic she was despite quite low pulse ox readings. if additional diuresis doesn't improve oxygenation, will probably need home O2, would also want PFTs in near future to quantify lung volumes (ie ??hypoventilation from mixed picture of deconditioning, PRAVEEN, weight, and COPD all adding to a cumulative burdon of requiring O2?) (2) Congestive heart failure, unspecified: Positive troponin likely demand ischemia from CHF - but d/w pt would ask PCP who knows her situation far better to consider stress testing -- certainly nothing appearing acute requiring such testing inpt, but does carry some risks and would want to consider this for completeness echo shows low normal EF (she notes actually better than it's been before - believes she bottomed out wiht EF around 45-50%) but suspect this is mostly HFpEF - see above otherwise (3) COPD exacerbation: seems stable - overall clinical picture appearing more c/w CHF -continue to follow -possibly this is part of why she might need O2 at home? -serial exams / as above otherwise (4) UTI (urinary tract infection): abnormal UA/culture - right now not complaining of urinary symptoms - holding rocpehin, will follow. does show gram positives in urine but if no symptoms reasonable likelihood of asymptomatic bacteriuria - continue to follow (5) Vulvar cancer: outpt f/u (6) Atrial fibrillation: Continue Eliquis, rates controlled (7) Hypothyroidism: Continue Synthroid (8) Chronic kidney disease, stage III (moderate): Monitor renal function closely (9) Anemia: pt relates by hx that prior Hgb was 12. not showing acute blood loss. no suspicion for hemolysis (bili normal); anticipated Fe or (semaj w macrocytosis) B12 deficiency - but these appear normal. retic low - seems to be hypoproliferative. follow Hgb, as long as stable, safe for outpt f/u w regular heme/onc (10) DVT prophylaxis: anticoagulated (for afib) Subjective feeling better discussed overnight pulse ox. breathing better feels like she's breathing easier no new issues overnight walked with pt - pulse ox dropped as low as 83-84 on RA with surprisingly little dyspnea symptomatically extensive discussions on ddx and plans. answered all questions to the best of my ability again to reiterate, really no symptoms of anything today - just ongoing hypoxia Review of Systems Review of Systems: All systems reviewed & are unremarkable except as noted in HPI & below Physical Exam Physical Exam: gen - pleasant nad heent - nc at mmm cardio - reg no r/m/g lungs - cta b/l no r/r/w good effort ambulatory pulse ox as above ext - no c/c, no gross deformities neuro/msk - slow transitions getting up and out of bed and getting positioned with walker, but then walks well with steady even gait. skin - no rashes no pallor or icterus Results & Data Vital Signs (Past 12 Hours) Vital Signs Temp Pulse Resp BP Pulse Ox Pulse Ox 04/03/19 15:27 98.2 F 76 19 169/90 H 97 04/03/19 12:01 99.5 F 75 20 152/74 H 95 04/03/19 11:49 94 04/03/19 08:31 143/75 H 04/03/19 07:03 98.2 F 88 18 175/84 H 97 04/03/19 05:01 97.9 F 77 20 165/84 H 97 PG Care Time/CCT Total # of Minutes Spent Total Time Spent with Patient: Total time spent is greater than 50% in coordination of care (as documented) at patient's floor/unit and/or counseling patient: (1) Anemia Anemia type: unspecified type Qualified Code(s): D64.9 - Anemia, unspecified
[2019-04-04] MEDS: LEVOTHYROXINE SODIUM 175 MCG TABLET PO SCH (06:25)
[2019-04-04 07:03] LABS: Basophils # (auto) 0.03 K/uL (0-0.2); Basophils % (auto) 0.3 %; Eosinophils # (auto) 0.42 K/uL (0-0.5); Eosinophils % (auto) 3.6 %; Hematocrit (blood only) 31.5 % (37-47); Hemoglobin 10.1 g/dL (12.0-16.0); Immature Granulocytes # (auto) 0.08 K/uL (0.00-0.02); Immature Granulocytes % (auto) 0.7 %; Lymphocytes # (auto) 0.76 K/uL (1.2-3.4); Lymphocytes % (auto) 6.4 %; Mean Corpuscular Hemoglobin 33.4 pg (25-34); Mean Corpuscular Hgb Conc 32.1 g/dL (32-36); Mean Corpuscular Volume 104.3 fL (80-100); Mean Platelet Volume 8.8 fL (7.4-10.4); Monocytes # (auto) 0.73 K/uL (0.11-0.59); Monocytes % (auto) 6.2 %; Neutrophils # (auto) 9.78 K/uL (1.4-6.5); Neutrophils % (auto) 82.8 %; Platelet Count 352 K/uL (130-400); RDW Coefficient of Variation 16.8 % (11.5-14.5); RDW Standard Deviation 63.4 fL (36.4-46.3); Red Blood Count 3.02 M/uL (4.2-5.4)
[2019-04-04 07:40] LABS: BUN Creatinine Ratio 18.7 (10-20); Calcium 8.4 mg/dl (8.5-10.1); Est GFR (African American) 45.4; Est GFR (Non-African American) 39.2; Potassium 3.9 mmol/L (3.5-5.1)
[2019-04-04] MEDS: LACTOBACILLUS ACIDOPHILUS 1 GM PACK PO SCH ×2 (08:08→13:07)
[2019-04-04] MEDS: carvediloL 6.25 MG TAB PO SCH (08:11)
[2019-04-04] MEDS: METHADONE ORAL SOLN 2 MG/ML PO SCH (08:11)
[2019-04-04] MEDS: AMLODIPINE BESYLATE 5 MG TAB PO SCH (08:12)
[2019-04-04] MEDS: APIXABAN 5 MG TABLET PO SCH (08:12)
[2019-04-04] MEDS: PANTOprazole 40 MG TAB PO SCH (08:12)
[2019-04-04] MEDS: PHENAZOPYRIDINE HCL 200 MG TAB PO SCH ×2 (08:13→14:12)
[2019-04-04] MEDS: BuPROPion XL 150 MG TABCR PO SCH (08:13)
[2019-04-04] MEDS ORDERED: METOPROLOL SUCC 25MG EXT REL TAB PO SCH (09:00)
[2019-04-04] MEDS: PATIENT'S OWN CONTROLLED MED SCH (09:53)
--- NOTE | 2019-04-04 15:53 | Discharge Summary ---
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 The day before yesterday she was admitted to [facility] for exam under anesthesia, vulvar biopsy and dilation and curettage, postprocedure she was hypoxic and she was kept for 2023 hrs. the next day she was discharged home. Patient stated that after she went home she was visited by some friends after the friend left she does not remember anything happen until she found herself sitting on the commode and was confused and not feeling well, she called her friend's to come and see her, on arrival she was confused he called 911 she was found to be hypoxic, 87% in room air required 2 L of oxygen and she was brought to the hospital for further evaluation. She stated that she takes Eliquis for atrial fibrillation but she had to stop it 2 days prior to the procedure, and then she said that she does not remember taking it after that as she was confused. She also stated that she has been coughing some yellowish sputum and wheezing. Due to radiation induced skin injury to her valvular area she has been followed up by pain management who had her on methadone 10 mg twice daily. And oxycodone, she does not think that she took any extra dose of her medicine. She will be admitted for further evaluation and management Admission Exam Per Admitting Provider General patient appears to be obese, comfortable, not in acute distress HEENT: Atraumatic , normocephalic /no jaundice /no pallor /anicteric /no dry mucous membrane /normal external ear inspection Neck: Supple /no swelling /central trach Heart: S1/S2 normal/regular rate and rhythm/no gallop /no rub /no murmur Lungs: Decreased air entry bilaterally, generalized wheezing both lung black, scattered rhonchi, no chest wall tenderness Abdomen: Soft/nontender/no guarding/no rebound/no organomegaly/no pulsatile mass Musculoskeletal: No swelling/no edema/no tenderness/normal range of motion Neuro exam: Awake alert oriented 3/cranial nerves II through XII appear to be intact/sensation intact/moves all extremities/no abnormal movements Psychiatric evaluation: No depressed mood/normal affect Skin: No rash on exposed skin area/no erythema Extremity: Normal pulse/no pitting edema/no clubbing or cyanosis Endocrine/lymphatic: No obvious lymphadenopathy /no lymphedema Principal Diagnosis CHF Exacerbation Discharge Exam General: Alert, oriented. No acute distress Skin: No noted rashes or bruises, vulvar grossly nonerythematous Psych: Appropriate mood and affect Neuro: No gross deficits HEENT: NC/AT Chest: Nontender to palpation. CV: RRR, Normal s1, s2. No murmurs appreciated Resp: Breath sounds clear bilaterally, no increased effort of breathing. No crackles/rhonchi/rales. Abdomen: Soft, nontender, nondistended. No guarding. No organomegaly appreciated. Extremities: No edema in lower extremities bilaterally. Discharge Data Allergies Allergy/AdvReac Type Severity Reaction Status Date / Time aspirin Allergy Intermediate HIVES, Unverified 04/01/19 15:16 ITCHING naproxen Allergy Intermediate HIVES Unverified 04/01/19 15:16 iodine Allergy Unknown Verified 07/01/16 08:06 CONTRASTMEDIA Allergy Unknown Unknown Uncoded 04/01/19 15:16 IV CONTRAST=RESPIRATORY Allergy Unknown Unknown Uncoded 04/01/19 15:16 DIFFICULTIES IV DYE Allergy Unknown Unknown Uncoded 04/01/19 15:16 PINEAPPLE=SWOLLEN LIPS AND Allergy Unknown Unknown Uncoded 04/01/19 15:16 TONGUE SMOKE Allergy Unknown Unknown Uncoded 04/01/19 15:16 Consultations 04/01/19 14:42 ED Decision to Admit Stat 04/02/19 16:18 Consult Case Management - Discharge Planning Routine Consult [facility] auto phone [employer] Routine Ordered Studies 04/01/19 12:47 CT head/brain wo con Stat 04/01/19 14:07 US venous doppler LE BI Stat 04/01/19 15:16 CT angio chest PE protocol Stat Hospital Course (1) Acute respiratory failure with hypoxia: Acute respiratory failure with hypoxia -Pt with acute hypoxic episodes to low 80s, though asymptomatic -Likely secondary to acute CHF exacerbation -On infrequent diuresis with Furosemide 40mg; some improvement. -Noted O2 requirement at bedtime -can consider PFTs to determine whether there is an underlying chronic cause, quantify lung volume. Acute Exacerbation of HFrEF -hypoxia with echo showing low normal EF -also associated with elevated troponins likely secondary to demand ischemia -can consider stress testing if new onset troponin elevation based on outpt records. COPD -less likely a COPD exacerbation -as above for acute respiratory failure with hypoxia UTI -Pt states she has chronic dysuria from her vulvar radiation. -urine Cx with growth of gram neg, elevated WBC downtrending on discharge -one dose of rocephin received. d/ruby on discharge since likely asymptomatic bacteriurea Hx of vulvar cancer -continue with outpt therapy Atrial fibrillation -rate controlled while hospitalized, on metoprolol -anticoagulated with Eliquis Anemia -macrocytic with low reticulocytes Other chronic problems: CKD, hypothyroidism -continue home meds. C (2) Congestive heart failure, unspecified: (3) COPD exacerbation: (4) UTI (urinary tract infection): (5) Vulvar cancer: (6) Atrial fibrillation: (7) Hypothyroidism: (8) Chronic kidney disease, stage III (moderate): (9) Anemia: (10) DVT prophylaxis: Total Time Total Time Spent Total Time Spent (In Minutes): See attending attestation Discharge Plan Discharge Items Patient Disposition: Home - Self-Care Reason For Visit: RESP FAILURE W HYOXIA Discharge Diagnosis: CHF Exacerbation Activity: Per Instructions section Non-emergency contact: Primary Care Provider Call non-emergency contact if: your symptoms worsen and you have a fever Follow-up/Referrals: PCP,NO [Primary Care Provider] - Diet: Low Sodium (2gm) Addtl Attending Provider Instructions: Massimo, you were admitted because you had some trouble breathing likely secondary to your history of congestive heart failure. We treated you with the diuretic Lasix and also determined that you have a need for night oxygen use. They both seem to help your breathing. Please continue to use the oxygen as directed. Please also continue to watch your sodium intake as well as that can contribute to making your congestive heart failure worse. Please followup closely with your primary care provider for your trouble breathing within the next week after discharge. Please continue taking your other home medications as directed- particularly your home metoprolol and your losartan. 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 Pending Studies at Discharge: No Stand-Alone Forms: My [facility], Smoking Cessation Medications and DC Order Prescriptions: New losartan 50 mg tablet 50 mg PO DAILY Qty: 30 RF: 0 metoprolol tartrate 50 mg tablet 50 mg PO BID Qty: 60 RF: 0 Continued silver sulfadiazine 1 % Cream 1 applic TOPICAL DIRECTED RF: 0 levothyroxine [Synthroid] 175 mcg Tablet 175 mcg PO DAILY RF: 0 methadone 10 mg Tablet 0 mg PO Q12H RF: 0 phenazopyridine 200 mg Tablet 200 mg PO TID RF: 0 cyanocobalamin (vitamin B-12) [Vitamin B-12] 1,000 mcg Tablet 1,000 mcg PO DAILY RF: 0 amoxicillin 500 mg Tablet 500 mg PO DIRECTED PRN (Reason: Dental Appointment) RF: 0 Vitamin B-12 50 mcg Tablet 50 mcg PO DAILY RF: 0 oxycodone-acetaminophen 5-325 mg Tablet 1 tab PO Q4H PRN (Reason: Pain) RF: 0 lorazepam [Ativan] 0.5 mg Tablet 0.5 mg PO BID PRN (Reason: Anxiety) RF: 0 amlodipine 10 mg Tablet 10 mg PO DAILY RF: 0 pantoprazole 40 mg Tablet,Delayed Release (Dr/Ec) 40 mg PO BID RF: 0 lorazepam [Ativan] 1 mg Tablet 1 mg PO DIRECTED PRN (Reason: Prior PET Scan) RF: 0 zolpidem 10 mg Tablet 10 mg PO HS PRN (Reason: Sleep) RF: 0 metformin 500 mg Tablet Extended Release 24 Hr 500 mg PO DAILY RF: 0 bupropion HCl 150 mg Tablet Extended Release 24 Hr 150 mg PO QAM RF: 0 oxycodone 10 mg Tablet 10 mg PO Q4H PRN (Reason: Pain) RF: 0 melatonin 5 mg Tablet 5 mg PO HS PRN (Reason: Sleep) RF: 0 Eliquis 5 mg Tablet 5 mg PO BID RF: 0 Discontinued losartan 100 mg Tablet 100 mg PO DAILY RF: 0 Discharge Orders: Discharge Order (Routine); Ordered 04/04/19 Ordered By: Joanna John Admission Data Admit Date/Time: 04/01/19 16:24 Attending Provider: Nory Gomez Admit Provider: Moustafa Tejinder,Wesam H. Primary Care Provider: PCP,NO Other Providers: Janett Mcintosh ; Mohamud Peralta ; [facility] Other Interventions: Discharge Summary Assessment (RN) Last Done: 04/04/19 15:29 DC Date/Time DO NOT enter until pt leaves facility: 04/04/19 17:10 Supervising Physician Co-Signing Physician Notes Resident Physician Supervision Note: I independently interviewed and examined the patient and verified the palacios history and physical, reviewed labs and image studies, discussed the case with the resident Dr. John and agree with the findings and care plan. Time spent in discharge 35 min Resident Activity Tracking Resident Involvement: Resident Care Provided Care Provided: Adult Hospital Medicine
[2019-04-05] MEDS ORDERED: LISINOPRIL 5 MG TAB PO SCH (09:00)
== END 2019-04-04 17:10 | disposition home or self-care (01) | DRG 189 ==
LOC: ED 11:15 → 2E 16:24 → SUATTDRO 16:24 → 2E 18:55

== ENCOUNTER 2019-11-08 19:18 | Inpatient (IN) ==
[2019-11-08] MEDS ORDERED: XYLOCAINE 1%/SOD BICARB 20 ML VIAL INFIL ONE ×2 (19:59)
--- NOTE | 2019-11-08 22:41 | Emergency Department Note ---
History of Present Illness General Chief complaint: Fall Stated complaint: FALL Time Seen by Provider: 11/08/19 19:52 History of Present Illness Maximum Pain Intensity: 0 64-year-old female who presents to the emergency department for evaluation of injuries after she fell at home. The patient reports that she was getting up to go to the bathroom and her walker shifted, causing her to fall to the ground. This injury happened at approximately 3 PM. Her friend did not find her on the floor until 6 PM. The patient was unable to get up from the floor, so she grabbed a pillow off of the bed and made herself comfortable. The patient complains today of a laceration to the left upper arm. She denies head injury, neck pain, back pain or other extremity injuries. Patient does have a history of Hodgkin's lymphoma, and is currently under hospice care. The patient is on Eliquis. The patient denies any discomfort on initial exam. Home Medications Home Medications Medication Instructions Recorded Confirmed Type Eliquis 5 mg PO BID 04/01/19 11/08/19 History amlodipine 10 mg PO QAM 04/01/19 11/08/19 History amoxicillin 500 mg PO DIRECTED PRN 04/01/19 11/08/19 History cyanocobalamin (vitamin B-12) 1,000 mcg PO QAM 04/01/19 11/08/19 History [Vitamin B-12] levothyroxine [Synthroid] 175 mcg PO QAM 04/01/19 11/08/19 History lorazepam [Ativan] 0.5 mg PO BID PRN 04/01/19 11/08/19 History lorazepam [Ativan] 1 mg PO DIRECTED PRN 04/01/19 11/08/19 History melatonin 5 mg PO HS PRN 04/01/19 11/08/19 History methadone 10 mg PO Q12H 04/01/19 11/08/19 History oxycodone 10 mg PO Q4H PRN 04/01/19 11/08/19 History pantoprazole 40 mg PO BID 04/01/19 11/08/19 History metoprolol tartrate 100 mg PO PM 04/19/19 11/08/19 History bupropion HCl [Wellbutrin XL] 300 mg PO QAM 11/08/19 11/08/19 History losartan 100 mg PO DAILY 11/08/19 11/08/19 History metronidazole [Metrogel] 1 appln TOP DAILY PRN 11/08/19 11/08/19 History Allergies Allergy/AdvReac Type Severity Reaction Status Date / Time iodine Allergy Severe TROUBLE Verified 11/08/19 23:28 BREATHING AND NEED EPI PEN aspirin Allergy Intermediate HIVES, Verified 11/08/19 23:28 ITCHING naproxen Allergy Intermediate HIVES Verified 11/08/19 23:28 IV CONTRAST=RESPIRATORY Allergy Severe TROUBLE Uncoded 11/08/19 23:28 DIFFICULTIES BREATHING IV DYE Allergy Severe TROUBLE Uncoded 11/08/19 23:28 BREATHING PINEAPPLE=SWOLLEN LIPS AND Allergy Intermediate LIPS AND Uncoded 11/08/19 23:28 TONGUE TONGUE SWELL SMOKE Allergy Unknown Unknown Uncoded 11/08/19 23:28 Past Med/Surg History Medical History Anxiety Asthma (Acute) Atrial fibrillation Paroxysmal- on Eliquis CHF (congestive heart failure) COPD (chronic obstructive pulmonary disease) per records Depression GERD (gastroesophageal reflux disease) Hodgkins lymphoma 1992, stage IIB, nodular sclerosing, s/p XRT and chemotherapy Hypertension Obesity Vulvar cancer dx 2019 (upcoming chemo) Surgical History H/O oophorectomy LEFT History of carpal tunnel surgery of right wrist History of hip replacement, total History of lumbar laminectomy History of open reduction and internal fixation (ORIF) procedure Left ankle open fracture debridement: 04/20/19: MAC 3, ETT 7 at [facility] Family History Other No pertinent family history in first degree relatives Social History Preferred Language: [place] Communication Ability: Effective Learning And Development Coordinator Required: No Beliefs That Will Affect Care: None marital status: Single Current Living Situation: Alone current occupational status: employed Feels Safe at Home: Yes Smoking Status: Never smoker Second Hand Exposure: No ; Hx Alcohol Use: No Hx Substance Use: No Review of Systems 10 system review was performed and was negative except for pertinent positives and negatives as indicated in history of present illness Physical Exam Vital Signs Vital Signs - 24 hr 11/08/19 19:33 11/08/19 19:40 11/08/19 20:00 Temperature 36.8 C Temperature Source Oral Pulse Rate 69 70 68 Pulse Rate from SpO2 Sensor 71 Respiratory Rate 18 17 16 Respiratory Effort / Characteristics Non-Labored Spontaneous Respiratory Depth Normal Blood Pressure 106/45 L 98/45 L 91/41 L Blood Pressure Mean 72 62 69 Pulse Oximetry 94 Oxygen Delivery Method Room Air Sepsis Recent Fever Within 48 Hours No Sepsis New/Unexplained Change in Mental Status No Sepsis Action Taken by Nursing No Action Required 11/08/19 20:30 11/08/19 21:00 11/08/19 21:01 Temperature Temperature Source Pulse Rate 67 68 67 Pulse Rate from SpO2 Sensor Respiratory Rate 18 15 16 Respiratory Effort / Characteristics Respiratory Depth Blood Pressure 102/47 L 97/48 L 97/48 L Blood Pressure Mean 74 71 71 Pulse Oximetry Oxygen Delivery Method Sepsis Recent Fever Within 48 Hours Sepsis New/Unexplained Change in Mental Status Sepsis Action Taken by Nursing 11/08/19 21:30 11/08/19 22:00 11/08/19 22:30 Temperature Temperature Source Pulse Rate 72 66 68 Pulse Rate from SpO2 Sensor 72 Respiratory Rate 12 12 15 Respiratory Effort / Characteristics Respiratory Depth Blood Pressure 117/71 95/44 L 92/41 L Blood Pressure Mean 87 70 65 Pulse Oximetry 95 Oxygen Delivery Method Sepsis Recent Fever Within 48 Hours Sepsis New/Unexplained Change in Mental Status Sepsis Action Taken by Nursing 11/08/19 23:00 Temperature Temperature Source Pulse Rate 66 Pulse Rate from SpO2 Sensor Respiratory Rate 14 Respiratory Effort / Characteristics Respiratory Depth Blood Pressure 94/46 L Blood Pressure Mean 75 Pulse Oximetry Oxygen Delivery Method Sepsis Recent Fever Within 48 Hours Sepsis New/Unexplained Change in Mental Status Sepsis Action Taken by Nursing CONSTITUTIONAL: Healthy and well nourished. Alert and oriented X 3. GCS 15. Patient does not appear in any acute distress. HEENT: Normocephalic, atraumatic. Pupils equal, round and reactive. No epistaxis, facial abrasions, raccoon's eyes or delgado sign. NECK: Full active range of motion without discomfort. RESPIRATORY: Clear to auscultation bilaterally with no wheezing, crackles, rhonchi or stridor. CARDIOVASCULAR: Regular rate and rhythm with no murmurs, rubs or gallops. GASTROINTESTINAL: Bowel sounds present in all quadrants. Soft and nontender to palpation. MUSCULOSKELETAL: Examination of the left upper lateral arm shows a 3 cm laceration without active bleeding or tissue loss. Patient has full range of motion of all major joints without discomfort. Distal pulses are intact. INTEGUMENTARY: No rash or other significant dermatologic conditions noted. HEMATOLOGIC: No ecchymosis or petechiae. PSYCHIATRIC: Positive affect. NEUROLOGIC: Cranial nerves II-XII grossly intact. No focal neurologic deficits noted. Procedures Free Text Procedures Left upper arm laceration repair was performed under local anesthesia after receiving verbal consent from the patient. Using buffered lidocaine 1% without epinephrine, good local anesthesia was administered. Peripheral tissue was then cleansed with iodine, then the wound was irrigated with normal saline. Exploration of the wound does not show any underlying foreign bodies. The wound was then approximated using 4-0 nylon simple interrupted sutures. A bacitracin dressing was applied. The patient tolerated the procedure well. Course Course Patient history and physical exam were performed. Nurse's notes were reviewed. Vital signs were reviewed and were normal. Given the nature of the patient's fall, this certainly sounds like a mechanical fall. Because the patient is on Eliquis, I did recommend a head CT to rule out bleed. The patient reports that she has had lots of radiation in the past, and would prefer to avoid any further radiation. Laceration repair was performed under local anesthesia. The patient was provided additional verbal and written wound care instructions. Ice for swelling. Tylenol as needed for pain. I did recommend follow-up with her PCP in 2 weeks for suture removal. The patient was happy with plan of care, and denied any discomfort at the conclusion of my exam. Our It Investment/Portfolio Manager also came in to the room as I was performing a laceration repair, and spoke with the patient regarding the nature of her injury. The patient reports that she did feel safe at home, and transportation back home was requested. I then received notification from the correctional case records supervisor that her nurse manager document was irate that no additional work-up or imaging was performed. The correctional case records supervisor explained to the nurse (after receiving consent from the patient) that the patient did not express any concerns for going home. She also explained that the patient refused any additional work-up or CT imaging. Nurse was appalled of the care that was provided by the emergency department. Both the correctional case records supervisor and I separately went back into discussed this with the patient. The patient wanted to know if she should be observed overnight. At this point, I explained that she does not have any criteria to suggest a need for observation or admission. I also explained to the patient that if she is considering this, we would also have to perform additional laboratory and imaging studies for hospitalist consideration. The patient reports that it has been a while since she has had lab work performed, and did agree to labs. She continued to refuse CT imaging of the head. IV access was established, and labs were drawn and reviewed. Patient is profoundly anemic with a hemoglobin and hematocrit of 6.3 and 19.9, respectively. As an elevated creatinine of 2.63. The patient was hydrated with a 500 cc normal saline bolus. The patient signed a and informed consent for blood transfusions, reporting that she has had blood transfusions in the past. The case was discussed with Dr. French, ED attending physician, who agrees with work-up and mission for blood transfusion. The case was also discussed with Dr. Roman, [facility] hospitalist. Please see his dictation for further treatment and final disposition. Administered Medications Discontinued Medications Lidocaine HCl (Buffered Lidocaine 1%) 20 ml INFIL NOW ONE Stop: 11/08/19 20:00 Last Admin: 11/08/19 20:01 Dose: 20 ml Documented by: [id number] Lidocaine HCl (Buffered Lidocaine 1%) Confirm Administered Dose 20 ml INFIL .K-MED ONE Stop: 11/08/19 20:00 Last Admin: 11/08/19 20:01 Dose: Not Given Documented by: [id number] Critical Care Time Critical Care Time: Yes Total Critical Care Time: 35 I have personally spent greater than 30 minutes of critical care time in the direct management of this patient. This includes bedside care, interpretation of diagnostic studies, and testing, discussion with consultants, patient, and family members, and other required patient management activities. This 35 minutes is in excess of all separately billable procedures. Medical Decision Making Medical Records Attestation: I reviewed the patient's medical records. Home Medications Current Medication List: was personally reviewed by me Laboratory Data Attestation: I reviewed the patient's lab results. Result diagrams: 11/08/19 23:00 11/08/19 23:00 Lab Results 11/08/19 11/08/19 Range/Units 23:00 23:00 WBC 16.38 H (4.8-10.8) K/uL RBC 2.06 L (4.2-5.4) M/uL Hgb 6.3 L* (12.0-16.0) g/dL Hct 19.9 L* (37-47) % MCV 96.6 (80-100) fL MCH 30.6 (25-34) pg MCHC 31.7 L (32-36) g/dL RDW Std Deviation 56.9 H (36.4-46.3) fL RDW Coeff of Rylan 16.0 H (11.5-14.5) % Plt Count 345 (130-400) K/uL MPV 8.1 (7.4-10.4) fL Immature Gran % (Auto) 0.7 % Neut % (Auto) 82.8 % Lymph % (Auto) 6.3 % [place] % (Auto) 8.3 % Eos % (Auto) 1.6 % Baso % (Auto) 0.3 % Neut # (Auto) 13.56 H (1.4-6.5) K/uL Lymph # (Auto) 1.03 L (1.2-3.4) K/uL [place]ks # (Auto) 1.36 H (0.11-0.59) K/uL Eos # (Auto) 0.27 (0-0.5) K/uL Baso # (Auto) 0.05 (0-0.2) K/uL Immature Gran # (Auto) 0.11 H (0.00-0.02) K/uL RBC Morphology Unremarkable Sodium 134 L (136-145) mmol/L Potassium 5.1 (3.5-5.1) mmol/L Chloride 106 (98-107) mmol/L Carbon Dioxide 21 (21-32) mmol/L Anion Gap 7.0 (3-11) BUN 40 H (7-18) mg/dl Creatinine 2.63 H (0.6-1.2) mg/dl Est Cr Clr Drug Dosing 24.0 ml/min Est GFR ( Amer) 21.6 Est GFR (Non-Af Amer) 18.6 BUN/Creatinine Ratio 15.1 (10-20) Glucose 103 H (70-99) mg/dl Calcium 8.2 L (8.5-10.1) mg/dl Blood Pressure Blood Pressure Findings: Low blood pressure MDM Narrative Patient presents to the emergency department after suffering, according to the patient history, a mechanical fall is afternoon in her home. As indicated in previous sections, the patient initially refused any initial work-up other than the laceration repair to the left upper extremity. When the patient asked about the possibility of observation overnight, additional lab work was performed that showed a hemoglobin of 6.3. The patient has consented to blood transfusions. The patient has had blood transfusions in the past after elective hip surgery. Patient also has a known history of stage III chronic kidney disease, however does have an elevated creatinine and white count. I do not suspect any other major insults to the body, including endorgan damage, acute cardiac event or other significant traumatic injuries from her fall. The patient continued to decline CT imaging of the head, even with Eliquis use. Impression & Plan Laceration of left upper arm, Status post fall, Vulva cancer, Blood hemoglobin level less than 10 grams/deciliter, Hx of Hodgkins lymphoma Discharge Plan Visit Data Chief Complaint: Fall Stated Complaint: FALL ED Provider: Wei French ED Midlevel Provider: Rajan Arteaga Discharge Problem: Laceration of left upper arm, Status post fall, Vulva cancer, Blood hemoglobin level less than 10 grams/deciliter, Hx of Hodgkins lymphoma Patient Disposition: Home - Self-Care Discharge Instructions Activity Restrictions/Additional Instructions: Keep wound clean and covered with an antibiotic ointment and dressing. Intermittently apply ice to the area as needed for swelling and discomfort. Tylenol if needed for additional pain relief. Suture removal in 12 to 14 days, or seek reevaluation sooner for any sign of wo und infection. Forms Stand Alone Forms: [facility], Virtual Emergency Department, Important Visit Information Prescriptions Prescriptions: No Action levothyroxine [Synthroid] 175 mcg Tablet 175 mcg PO QAM RF: 0 methadone 10 mg Tablet 10 mg PO Q12H RF: 0 cyanocobalamin (vitamin B-12) [Vitamin B-12] 1,000 mcg Tablet 1,000 mcg PO QAM RF: 0 amoxicillin 500 mg Tablet 500 mg PO DIRECTED PRN (Reason: Dental Appointment) RF: 0 lorazepam [Ativan] 0.5 mg Tablet 0.5 mg PO BID PRN (Reason: Anxiety) RF: 0 amlodipine 10 mg Tablet 10 mg PO QAM RF: 0 pantoprazole 40 mg Tablet,Delayed Release (Dr/Ec) 40 mg PO BID RF: 0 lorazepam [Ativan] 1 mg Tablet 1 mg PO DIRECTED PRN (Reason: Prior PET Scan) RF: 0 oxycodone 10 mg Tablet 10 mg PO Q4H PRN (Reason: Pain) RF: 0 melatonin 5 mg Tablet 5 mg PO HS PRN (Reason: Sleep) RF: 0 Eliquis 5 mg Tablet 5 mg PO BID RF: 0 losartan 100 mg Tablet 100 mg PO DAILY RF: 0 bupropion HCl [Wellbutrin XL] 300 mg tablet extended release 24 hr 300 mg PO QAM RF: 0 metronidazole [Metrogel] 1 % gel 1 appln TOP DAILY PRN (Reason: VULVAR ULCER) RF: 0 metoprolol tartrate 50 mg tablet 100 mg PO PM RF: 0 Referrals Referrals: PCP,NO [Physician] - Discharge Problem: Laceration of left upper arm Qualifiers: Encounter type: initial encounter Qualified Code(s): S41.112A - Laceration without foreign body of left upper arm, initial encounter
[2019-11-08 23:18] LABS: Hematocrit (blood only) 19.9 % (37-47); Hemoglobin 6.3 g/dL (12.0-16.0); Mean Corpuscular Hemoglobin 30.6 pg (25-34); Mean Corpuscular Hgb Conc 31.7 g/dL (32-36); Mean Corpuscular Volume 96.6 fL (80-100); Mean Platelet Volume 8.1 fL (7.4-10.4); Platelet Count 345 K/uL (130-400); RDW Standard Deviation 56.9 fL (36.4-46.3); Red Blood Count 2.06 M/uL (4.2-5.4); White Blood Count 16.38 K/uL (4.8-10.8)
[2019-11-08 23:34] LABS: BUN Creatinine Ratio 15.1 (10-20); Calcium 8.2 mg/dl (8.5-10.1); Est GFR (African American) 21.6; Est GFR (Non-African American) 18.6; Potassium 5.1 mmol/L (3.5-5.1)
[2019-11-08] MEDS ORDERED: SODIUM CHLORIDE 0.9% 250 ML IV PRN (23:35)
[2019-11-08 23:36] LABS: Basophils # (auto) 0.05 K/uL (0-0.2); Basophils % (auto) 0.3 %; Eosinophils # (auto) 0.27 K/uL (0-0.5); Eosinophils % (auto) 1.6 %; Immature Granulocytes # (auto) 0.11 K/uL (0.00-0.02); Immature Granulocytes % (auto) 0.7 %; Lymphocytes # (auto) 1.03 K/uL (1.2-3.4); Lymphocytes % (auto) 6.3 %; Monocytes # (auto) 1.36 K/uL (0.11-0.59); Monocytes % (auto) 8.3 %; Neutrophils # (auto) 13.56 K/uL (1.4-6.5); Neutrophils % (auto) 82.8 %; RBC Morphology Unremarkable
[2019-11-08] MEDS ORDERED: SODIUM CHLORIDE 0.9% 1000ML 500 ML IV ONE (23:44)
[2019-11-09 00:03] LABS: Magnesium 1.5 mg/dl (1.8-2.4)
[2019-11-09 00:20] LABS: Thyroid Stimulating Hormone 4.95 uIu/ml (0.300-4.500)
[2019-11-09 00:31] LABS: Partial Thromboplastin Ratio 1.3; Partial Thromboplastin Time 35.5 Seconds (21.0-31.0)
--- NOTE | 2019-11-09 00:59 | History & Physical Report ---
Date of Service November 09, 2019 Assessment & Plan (1) Anemia: Acute on chronic Hemoglobin drop from baseline of 7 Secondary to traumatic left upper extremity laceration secondary to fall hx PAF on Eliquis chronic CHF (EF 50 to 55%, TTE 2019), patient on the dry side ARF on CKD, ? Recent Bactrim Rx for groin infection contributory PVD as per records hypertension, BP on the lower side hypothyroidism, TSH slightly elevated Hodgkin's lymphoma status post chemoradiation metastatic vulvar cancer status post chemoradiation on chronic methadone, patient currently receiving home hospice for extra help at home DM2, diet-controlled well-controlled as of outpatient hemoglobin A1c of 5.6 2019 ? Functional disability Medical telemetry given borderline BP Transfuse PRBC to maintain hemoglobin greater than 8, hx PVD as per records Appropriate to hold Eliquis for now until hemoglobin stable Baseline UA, monitor creatinine response to IVF Decrease maintenance beta-angie, hold amlodipine, losartan for now given borderline BP. Wound care nurse follow-up eval groin/vulvar wound ISS BG goal [id number] PT OT eval Social service RE discharge planning DVT prophylaxis. SCDs while Eliquis on hold RE bleeding laceration left upper extremity Full code Text document was generated using [employer] voice recognition software. It may contain grammatical or spelling errors. Kindly contact undersigned for clarification of any documentation item in question. History of Present Illness Chief Complaint: Fall Primary Care Provider: [facility] Ash [facility] History obtained from patient and records. Medical history significant for chronic CHF (EF 50 to 55%, TTE 2019), PAF on Eliquis, PVD as per records, hypertension, hyperlipidemia, hypothyroidism, Hodgkin's lymphoma status post chemoradiation, chronic pain secondary to metastatic vulvar cancer status post chemoradiation on chronic methadone, CKD (recent baseline of 2.4 last month), chronic anemia (baseline hemoglobin of 7). Recent outpatient [facility] [place] Oncology follow-up visit last month. PET/CT from August 2019 showed disease progression as per note. Patient hemoglobin noted to be 7.2, serum creatinine 2.4. Home hospice recommended by oncologist given declining performance status. Patient also saw [facility] wound care center outpatient last month for vulvar/groin wound follow-up. Necrotic vulvar/groin wound not debrided as per note. Topical medication and Bactrim course prescribed by wound care provider. Some improvement with groin wound/drainage as per patient. This afternoon, patient got up to go to the bathroom when her walker shifted causing her to fall on the ground hitting her left upper extremity resulting in a bleeding laceration. No head trauma, LOC, chest pain, S OB. Denies abdominal pain, black/bloody stools. Minimal left upper extremity discomfort. Laceration on left upper extremity repaired at the ER. Hemoglobin noted to be 6.3. 1 unit packed RBC transfused at the ER. Medical History as above Surgical History : Lymph node biopsy, carpal tunnel surgery, eardrum surgery, D&C, hysteroscopy, adhesio lysis/laparoscopic, myomectomy, tonsillectomy/adenoidectomy, hip replacement, ankle surgery Family History : Lung cancer, colon cancer, stroke, AAA, heart disease, thyroid cancer Personal/Social history : Non-smoker, no EtOH intake, RN Allergies Allergy/AdvReac Type Severity Reaction Status Date / Time iodine Allergy Severe TROUBLE Verified 11/08/19 23:28 BREATHING AND NEED EPI PEN aspirin Allergy Intermediate HIVES, Verified 11/08/19 23:28 ITCHING naproxen Allergy Intermediate HIVES Verified 11/08/19 23:28 IV CONTRAST=RESPIRATORY Allergy Severe TROUBLE Uncoded 11/08/19 23:28 DIFFICULTIES BREATHING IV DYE Allergy Severe TROUBLE Uncoded 11/08/19 23:28 BREATHING PINEAPPLE=SWOLLEN LIPS AND Allergy Intermediate LIPS AND Uncoded 11/08/19 23:28 TONGUE TONGUE SWELL SMOKE Allergy Unknown Unknown Uncoded 11/08/19 23:28 Home Medications Home Medications Medication Instructions Recorded Confirmed Type Eliquis 5 mg PO BID 04/01/19 11/08/19 History amlodipine 10 mg PO QAM 04/01/19 11/08/19 History amoxicillin 500 mg PO DIRECTED PRN 04/01/19 11/08/19 History cyanocobalamin (vitamin B-12) 1,000 mcg PO QAM 04/01/19 11/08/19 History [Vitamin B-12] levothyroxine [Synthroid] 175 mcg PO QAM 04/01/19 11/08/19 History lorazepam [Ativan] 0.5 mg PO BID PRN 04/01/19 11/08/19 History lorazepam [Ativan] 1 mg PO DIRECTED PRN 04/01/19 11/08/19 History melatonin 5 mg PO HS PRN 04/01/19 11/08/19 History methadone 10 mg PO Q12H 04/01/19 11/08/19 History oxycodone 10 mg PO Q4H PRN 04/01/19 11/08/19 History pantoprazole 40 mg PO BID 04/01/19 11/08/19 History metoprolol tartrate 100 mg PO PM 04/19/19 11/08/19 History bupropion HCl [Wellbutrin XL] 300 mg PO QAM 11/08/19 11/08/19 History losartan 100 mg PO DAILY 11/08/19 11/08/19 History metronidazole [Metrogel] 1 appln TOP DAILY PRN 11/08/19 11/08/19 History Past Med/Surg History Medical History Anxiety Asthma (Acute) Atrial fibrillation Paroxysmal- on Eliquis CHF (congestive heart failure) COPD (chronic obstructive pulmonary disease) per records Depression GERD (gastroesophageal reflux disease) Hodgkins lymphoma 1992, stage IIB, nodular sclerosing, s/p XRT and chemotherapy Hypertension Obesity Vulvar cancer dx 2018 (upcoming chemo) Surgical History H/O oophorectomy LEFT History of carpal tunnel surgery of right wrist History of hip replacement, total History of lumbar laminectomy History of open reduction and internal fixation (ORIF) procedure Left ankle open fracture debridement: 04/20/19: MAC 3, ETT 7 at [facility] Family History Other No pertinent family history in first degree relatives Social History Preferred Language: Telugu Communication Ability: Effective 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 Beliefs That Will Affect Care: None marital status: Single Current Living Situation: Alone current occupational status: employed Other Information That Helps Us Care for You: No Feels Safe at Home: Yes Safety Concerns: Feels Safe At This Time Smoking Status: Never smoker Do You Dip or Chew Tobacco: No ; Second Hand Exposure: No ; Tobacco Cessation Education Requested by Patient: No Hx Alcohol Use: Yes Hx Substance Use: No Review of Systems Review of Systems: As per HPI, all 10 systems reviewed, all other ROS negative Physical Exam Physical Exam: GENERAL: Comfortable, pleasant, no respiratory distress SKIN: Pallor, warm HEENT: Bespectacled, pale palpebral conjunctivae, no ptosis, dry buccal mucosa NECK : Supple, short neck, no tenderness CHEST : Decreased breath sounds , no tenderness HEART : RRR, systolic murmur ABDOMEN: Some distention, nontender : Exam deferred EXTREMITIES : Dressing LUE, minimal LE swelling, no LE tenderness, no other conspicuous deformities noted NEUROLOGIC : Coherent, no facial asymmetry, no other gross focality Results & Data Results & Data ([facility]) Vital Signs (Past 12 Hours) Vital Signs Temp Pulse Resp BP Pulse Ox 11/09/19 00:30 72 16 96 11/08/19 23:30 73 12 93/56 L 98 11/08/19 23:00 66 14 94/46 L 11/08/19 22:30 68 15 92/41 L 11/08/19 22:00 66 12 95/44 L 11/08/19 21:30 72 12 117/71 95 11/08/19 21:01 67 16 97/48 L 11/08/19 21:00 68 15 97/48 L 11/08/19 20:30 67 18 102/47 L 11/08/19 20:00 68 16 91/41 L 11/08/19 19:40 36.8 C 70 17 98/45 L 94 11/08/19 19:33 69 18 106/45 L Laboratory Results Laboratory Results WBC 16.38 K/uL (4.8-10.8) H 11/08/19 23:00 RBC 2.06 M/uL (4.2-5.4) L 11/08/19 23:00 Hgb 6.3 g/dL (12.0-16.0) L* 11/08/19 23:00 Hct 19.9 % (37-47) L* 11/08/19 23:00 MCV 96.6 fL (80-100) 11/08/19 23:00 MCH 30.6 pg (25-34) 11/08/19 23:00 MCHC 31.7 g/dL (32-36) L 11/08/19 23:00 RDW Std Deviation 56.9 fL (36.4-46.3) H 11/08/19 23:00 RDW Coeff of Rylan 16.0 % (11.5-14.5) H 11/08/19 23:00 Plt Count 345 K/uL (130-400) 11/08/19 23:00 MPV 8.1 fL (7.4-10.4) 11/08/19 23:00 Immature Gran % (Auto) 0.7 % 11/08/19 23:00 Neut % (Auto) 82.8 % 11/08/19 23:00 Lymph % (Auto) 6.3 % 11/08/19 23:00 Wood % (Auto) 8.3 % 11/08/19 23:00 Eos % (Auto) 1.6 % 11/08/19 23:00 Baso % (Auto) 0.3 % 11/08/19 23:00 Neut # (Auto) 13.56 K/uL (1.4-6.5) H 11/08/19 23:00 Lymph # (Auto) 1.03 K/uL (1.2-3.4) L 11/08/19 23:00 Wood # (Auto) 1.36 K/uL (0.11-0.59) H 11/08/19 23:00 Eos # (Auto) 0.27 K/uL (0-0.5) 11/08/19 23:00 Baso # (Auto) 0.05 K/uL (0-0.2) 11/08/19 23:00 Immature Gran # (Auto) 0.11 K/uL (0.00-0.02) H 11/08/19 23:00 RBC Morphology Unremarkable 11/08/19 23:00 APTT 35.5 Seconds (21.0-31.0) H 11/09/19 00:07 PTT Ratio 1.3 11/09/19 00:07 Sodium 134 mmol/L (136-145) L 11/08/19 23:00 Potassium 5.1 mmol/L (3.5-5.1) 11/08/19 23:00 Chloride 106 mmol/L (98-107) 11/08/19 23:00 Carbon Dioxide 21 mmol/L (21-32) 11/08/19 23:00 Anion Gap 7.0 (3-11) 11/08/19 23:00 BUN 40 mg/dl (7-18) H 06/23/20 23:00 Creatinine 2.63 mg/dl (0.6-1.2) H 11/08/19 23:00 Est Cr Clr Drug Dosing 24.0 ml/min 11/08/19 23:00 Est GFR ( Amer) 21.6 11/08/19 23:00 Est GFR (Non-Af Amer) 18.6 11/08/19 23:00 BUN/Creatinine Ratio 15.1 (10-20) 11/08/19 23:00 Glucose 103 mg/dl (70-99) H 11/08/19 23:00 Lactate 2.2 mmol/L (0.4-2.0) H* 11/09/19 00:07 Calcium 8.2 mg/dl (8.5-10.1) L 11/08/19 23:00 Magnesium 1.5 mg/dl (1.8-2.4) L 11/08/19 23:00 TSH 4.950 uIu/ml (0.300-4.500) H 11/08/19 23:00 Crossmatch See Detail 11/09/19 00:07 Diagnostic Findings Chest x-ray as per my interpretation no congestion
[2019-11-09] MEDS ORDERED: NORMOSOL-R 1,000 ML IV ONE ×2 (01:29→04:29)
[2019-11-09] MEDS ORDERED: PROMETHAZINE HCL 12.5 MG in SODIUM CHLORIDE 0.9% 50 ML IV PRN (03:08)
[2019-11-09] MEDS ORDERED: HYDROmorphone INJ 0.5 MG/0.5 ML SYR IV PRN (03:08)
[2019-11-09] MEDS ORDERED: LORazepam 0.5 MG TAB PO PRN (03:08)
[2019-11-09] MEDS ORDERED: ACETAMINOPHEN 325 MG TAB PO PRN (03:08)
[2019-11-09] MEDS ORDERED: SODIUM CHLORIDE 0.9% 1000ML 1,000 ML IV SCH (03:08)
[2019-11-09] MEDS ORDERED: OXYCODONE HCL IR 5 MG TAB (IMMEDIATE RELEASE) PO PRN (03:08)
[2019-11-09] MEDS ORDERED: MELATONIN 3 MG TAB PO PRN (03:31)
[2019-11-09] MEDS: MAGNESIUM SULFATE / D5W 1 GM/100 ML BAG IV SCH ×2 (04:00→05:49)
[2019-11-09 04:22] LABS: BUN Creatinine Ratio 17.7 (10-20); Calcium 7.4 mg/dl (8.5-10.1); Creatinine Clr Calc Pharmacy 26.1 ml/min; Est GFR (African American) 23.9; Est GFR (Non-African American) 20.6; Magnesium 1.6 mg/dl (1.8-2.4); Potassium 4.4 mmol/L (3.5-5.1)
[2019-11-09 04:25] LABS: Hematocrit (blood only) 20.9 % (37-47); Hemoglobin 6.6 g/dL (12.0-16.0); Mean Corpuscular Hemoglobin 30.7 pg (25-34); Mean Corpuscular Hgb Conc 31.6 g/dL (32-36); Mean Corpuscular Volume 97.2 fL (80-100); Mean Platelet Volume 8.2 fL (7.4-10.4); Platelet Count 334 K/uL (130-400); RDW Coefficient of Variation 16.5 % (11.5-14.5); RDW Standard Deviation 58.2 fL (36.4-46.3); Red Blood Count 2.15 M/uL (4.2-5.4); White Blood Count 13.83 K/uL (4.8-10.8)
[2019-11-09] MEDS ORDERED: SODIUM CHLORIDE 0.9% 250 ML IV PRN (04:29)
[2019-11-09 04:53] LABS: Basophils # (auto) 0.05 K/uL (0-0.2); Basophils % (auto) 0.4 %; Eosinophils # (auto) 0.35 K/uL (0-0.5); Eosinophils % (auto) 2.5 %; Immature Granulocytes # (auto) 0.09 K/uL (0.00-0.02); Immature Granulocytes % (auto) 0.7 %; Lymphocytes # (auto) 0.91 K/uL (1.2-3.4); Lymphocytes % (auto) 6.6 %; Monocytes # (auto) 1.06 K/uL (0.11-0.59); Monocytes % (auto) 7.7 %; Neutrophils # (auto) 11.37 K/uL (1.4-6.5); Neutrophils % (auto) 82.1 %; RBC Morphology Unremarkable
[2019-11-09] MEDS: LEVOTHYROXINE SODIUM 175 MCG TABLET PO SCH (06:15)
--- NOTE | 2019-11-09 08:02 | XRay Report ---
XR chest 1V portable CLINICAL HISTORY: renal failure COMPARISON STUDY: 06/22/2019 FINDINGS: The cardiac and mediastinal contours remain stable. There is a right-sided A-Port catheter. There is no failure. There is no focal pulmonary consolidation. There are no pleural effusions.[ IMPRESSION: No active disease in the chest. ACT 112: Negative or not required by law. Electronically signed by: Brenton Kilpatrick M.D. 11/09/2019 8:00 AM
[2019-11-09] MEDS: CYANOCOBALAMIN 500 MCG TABLET (VITAMIN B-12) PO SCH (08:15)
[2019-11-09] MEDS: PANTOprazole 40 MG TAB PO SCH ×2 (08:15→20:56)
[2019-11-09] MEDS: METHADONE HCL 10 MG TAB PO SCH ×2 (08:15→20:56)
[2019-11-09] MEDS: METOPROLOL TARTRATE 25 MG TAB PO SCH ×2 (08:16→21:01)
[2019-11-09] MEDS: BuPROPion XL 300 MG TABCR PO SCH (08:16)
[2019-11-09] MEDS ORDERED: GLUCAGON FOR INJ 1 MG VIAL SQ PRN (08:50)
[2019-11-09] MEDS ORDERED: GLUCOSE 40% GEL 15 GM TUBE PO PRN (08:50)
[2019-11-09] MEDS ORDERED: DEXTROSE 50% 50 ML SYRINGE IV PRN (08:50)
[2019-11-09] MEDS ORDERED: GLUCOSE 10 TABS/TUBE PO PRN (08:50)
[2019-11-09] MEDS ORDERED: CARBOHYDRATES FOR HYPOGLYCEMIA PO PRN (08:50)
[2019-11-09] MEDS ORDERED: INSULIN ASPART 100 UNITS/ML 3 ML PEN SC SCH (11:30)
[2019-11-09 12:37] LABS: Hematocrit (blood only) 23.3 % (37-47); Hemoglobin 7.6 g/dL (12.0-16.0)
[2019-11-09 18:54] LABS: Appearance Urine Turbid (Clear); Bacteria Urine Automated 2+ (Negative); Bilirubin Urine Negative (Negative); Blood Urine 3+ (Negative); Color Urine Yellow; Epithelial Cell Urine Auto >30 /lpf (0-5); Glucose Urine UA Negative (Negative); Ketones Urine Negative (Negative); Leukocyte Esterase Urine 3+ (Negative); Nitrite Urine Negative (Negative); Protein Urine 1+ (Negative); Urobilinogen Urine Negative (Negative); WBC Urine Automated >30 /hpf (0-5)
[2019-11-09 19:05] LABS: RBC Urine Automated >30 /hpf (0-4)
[2019-11-09 19:23] LABS: Hematocrit (blood only) 23.9 % (37-47); Hemoglobin 7.8 g/dL (12.0-16.0)
[2019-11-09] MEDS: HEPARIN 100 UNIT/ML 5ML FLUSH FLUSH PRN (21:09)
--- NOTE | 2019-11-09 21:23 | Hospitalist Progress Note ---
Date of Service November 09, 2019 Assessment & Plan (1) Anemia: (2) Acute kidney injury: (3) Chronic kidney disease, stage III (moderate): (4) CHF (congestive heart failure): (5) Atrial fibrillation: (6) Hypertension: (7) Vulva cancer: (8) Chronic pain due to malignant neoplastic disease: (9) DVT prophylaxis: (10) Discharge planning issues: Admission and Anticipated Discharge Date Admission Date: November 09, 2019 Subjective Recheck for severe anemia and other problems. Patient seen in their room around 1410. Admitted early this morning with severe anemia associated with weakness and fall. Has received 2 units pRBC's. No SOB or other complications. Review of Systems: Constitutional- no fever. Cardiac- no chest pain. Pulmonary- no cough or SOB. GI- no nausea, vomiting, diarrhea, melena, hematochezia. - no dysuria; chronic vulvar drainage, unchanged. Otherwise, as noted above. Physical Exam Constitutional: no acute distress Respiratory: no respiratory distress Auscultation: lungs clear to auscultation bilaterally Cardiovascular: Rate/Rhythm: regular rate and regular rhythm Heart Sounds: no gallop, no murmur and no cardiac rub Vessels: no JVD Extremities: no calf tenderness and no edema Gastrointestinal (Abdomen): normal bowel sounds, soft, nontender, no hepatosplenomegaly Musculoskeletal: Extremities: no cyanosis Skin: no rashes, warm and dry Psychiatric: Orientation: alert and oriented x 3 Results & Data Results & Data ([facility]) Vital Signs (Past 12 Hours) Vital Signs Temp Pulse Pulse Resp BP BP Pulse Ox 11/09/19 21:00 63 99/63 L 11/09/19 19:23 36.6 C 79 18 100/60 93 11/09/19 15:32 36.6 C 68 20 93/49 L 98 11/09/19 15:00 71 11/09/19 13:42 11/09/19 12:22 36.6 C 69 20 94/57 L 99 Pulse Ox 11/09/19 21:00 11/09/19 19:23 11/09/19 15:32 11/09/19 15:00 11/09/19 13:42 96 11/09/19 12:22 Laboratory Results Laboratory Results - last 24 hr 11/09/19 11/09/19 11/09/19 00:07 00:07 00:07 WBC RBC Hgb Hct MCV MCH MCHC RDW Std Deviation RDW Coeff of Rylan Plt Count MPV Immature Gran % (Auto) Neut % (Auto) Lymph % (Auto) Rolette % (Auto) Eos % (Auto) Baso % (Auto) Neut # (Auto) Lymph # (Auto) Rolette # (Auto) Eos # (Auto) Baso # (Auto) Immature Gran # (Auto) RBC Morphology APTT 35.5 H PTT Ratio 1.3 Sodium Potassium Chloride Carbon Dioxide Anion Gap BUN Creatinine Est Cr Clr Drug Dosing Est GFR ( Amer) Est GFR (Non-Af Amer) BUN/Creatinine Ratio Glucose POC Glucose Lactate 2.2 H* Calcium Magnesium Procalcitonin Urine Color Urine Appearance Urine pH Ur Specific [place] Urine Protein Urine Glucose (UA) Urine Ketones Urine Blood Urine Nitrite Urine Bilirubin Urine Urobilinogen Ur Leukocyte Esterase Urine WBC (Auto) Urine RBC (Auto) U Hyaline Cast (Auto) U Epithel Cells (Auto) Urine Bacteria (Auto) Urine Yeast Blood Type A Positive Antibody Screen NEGATIVE Crossmatch See Detail 11/09/19 11/09/19 11/09/19 00:07 03:52 03:52 WBC 13.83 H RBC 2.15 L Hgb 6.6 L* Hct 20.9 L* MCV 97.2 MCH 30.7 MCHC 31.6 L RDW Std Deviation 58.2 H RDW Coeff of Rylan 16.5 H Plt Count 334 MPV 8.2 Immature Gran % (Auto) 0.7 Neut % (Auto) 82.1 Lymph % (Auto) 6.6 Rolette % (Auto) 7.7 Eos % (Auto) 2.5 Baso % (Auto) 0.4 Neut # (Auto) 11.37 H Lymph # (Auto) 0.91 L Ro[place] # (Auto) 1.06 H Eos # (Auto) 0.35 Baso # (Auto) 0.05 Immature Gran # (Auto) 0.09 H RBC Morphology Unremarkable APTT PTT Ratio Sodium 136 Potassium 4.4 Chloride 107 Carbon Dioxide 21 Anion Gap 8.0 BUN 43 H Creatinine 2.42 H Est Cr Clr Drug Dosing 26.1 Est GFR ( Amer) 23.9 Est GFR (Non-Af Amer) 20.6 BUN/Creatinine Ratio 17.7 Glucose 102 H POC Glucose Lactate Calcium 7.4 L Magnesium 1.6 L Procalcitonin 0.14 Urine Color Urine Appearance Urine pH Ur Specific [place] Urine Protein Urine Glucose (UA) Urine Ketones Urine Blood Urine Nitrite Urine Bilirubin Urine Urobilinogen Ur Leukocyte Esterase Urine WBC (Auto) Urine RBC (Auto) U Hyaline Cast (Auto) U Epithel Cells (Auto) Urine Bacteria (Auto) Urine Yeast Blood Type Antibody Screen Crossmatch 11/09/19 11/09/19 11/09/19 03:52 12:21 12:23 WBC RBC Hgb 7.6 L Hct 23.3 L MCV MCH MCHC RDW Std Deviation RDW Coeff of Rylan Plt Count MPV Immature Gran % (Auto) Neut % (Auto) Lymph % (Auto) Rolette % (Auto) Eos % (Auto) Baso % (Auto) Neut # (Auto) Lymph # (Auto) Rolette # (Auto) Eos # (Auto) Baso # (Auto) Immature Gran # (Auto) RBC Morphology APTT PTT Ratio Sodium Potassium Chloride Carbon Dioxide Anion Gap BUN Creatinine Est Cr Clr Drug Dosing Est GFR ( Amer) Est GFR (Non-Af Amer) BUN/Creatinine Ratio Glucose POC Glucose 82 Lactate 2.0 Calcium Magnesium Procalcitonin Urine Color Urine Appearance Urine pH Ur Specific [place] Urine Protein Urine Glucose (UA) Urine Ketones Urine Blood Urine Nitrite Urine Bilirubin Urine Urobilinogen Ur Leukocyte Esterase Urine WBC (Auto) Urine RBC (Auto) U Hyaline Cast (Auto) U Epithel Cells (Auto) Urine Bacteria (Auto) Urine Yeast Blood Type Antibody Screen Crossmatch 11/09/19 11/09/19 18:18 18:43 WBC RBC Hgb 7.8 L Hct 23.9 L MCV MCH MCHC RDW Std Deviation RDW Coeff of Rylan Plt Count MPV Immature Gran % (Auto) Neut % (Auto) Lymph % (Auto) Rolette % (Auto) Eos % (Auto) Baso % (Auto) Neut # (Auto) Lymph # (Auto) Rolette # (Auto) Eos # (Auto) Baso # (Auto) Immature Gran # (Auto) RBC Morphology APTT PTT Ratio Sodium Potassium Chloride Carbon Dioxide Anion Gap BUN Creatinine Est Cr Clr Drug Dosing Est GFR ( Amer) Est GFR (Non-Af Amer) BUN/Creatinine Ratio Glucose POC Glucose Lactate Calcium Magnesium Procalcitonin Urine Color Yellow Urine Appearance Turbid A Urine pH 5.0 Ur Specific [place] 1.020 Urine Protein 1+ H Urine Glucose (UA) Negative Urine Ketones Negative Urine Blood 3+ H Urine Nitrite Negative Urine Bilirubin Negative Urine Urobilinogen Negative Ur Leukocyte Esterase 3+ H Urine WBC (Auto) >30 H Urine RBC (Auto) >30 H U Hyaline Cast (Auto) 1-5 U Epithel Cells (Auto) >30 H Urine Bacteria (Auto) 2+ H Urine Yeast Not Reportable Blood Type Antibody Screen Crossmatch (1) Anemia Anemia type: unspecified type Qualified Code(s): D64.9 - Anemia, unspecified (2) Atrial fibrillation Atrial fibrillation type: paroxysmal Qualified Code(s): I48.0 - Paroxysmal atrial fibrillation (3) Hypertension Hypertension type: essential hypertension Qualified Code(s): I10 - Essential (primary) hypertension (4) CHF (congestive heart failure) Heart failure chronicity: acute Heart failure type: unspecified Qualified Code(s): I50.9 - Heart failure, unspecified
[2019-11-10] MEDS: LEVOTHYROXINE SODIUM 175 MCG TABLET PO SCH (06:21)
[2019-11-10 06:26] LABS: Basophils # (auto) 0.03 K/uL (0-0.2); Basophils % (auto) 0.2 %; Eosinophils # (auto) 0.21 K/uL (0-0.5); Eosinophils % (auto) 1.7 %; Hematocrit (blood only) 22.2 % (37-47); Hemoglobin 7.2 g/dL (12.0-16.0); Immature Granulocytes # (auto) 0.05 K/uL (0.00-0.02); Immature Granulocytes % (auto) 0.4 %; Lymphocytes # (auto) 0.53 K/uL (1.2-3.4); Lymphocytes % (auto) 4.3 %; Mean Corpuscular Hemoglobin 30.1 pg (25-34); Mean Corpuscular Hgb Conc 32.4 g/dL (32-36); Mean Corpuscular Volume 92.9 fL (80-100); Mean Platelet Volume 8.4 fL (7.4-10.4); Monocytes # (auto) 0.88 K/uL (0.11-0.59); Monocytes % (auto) 7.1 %; Neutrophils # (auto) 10.76 K/uL (1.4-6.5); Neutrophils % (auto) 86.3 %; Platelet Count 272 K/uL (130-400); RDW Coefficient of Variation 17.6 % (11.5-14.5); RDW Standard Deviation 59.9 fL (36.4-46.3); Red Blood Count 2.39 M/uL (4.2-5.4); White Blood Count 12.46 K/uL (4.8-10.8)
[2019-11-10 06:52] LABS: RBC Morphology Unremarkable
[2019-11-10 06:57] LABS: BUN Creatinine Ratio 18.2 (10-20); Calcium 7.9 mg/dl (8.5-10.1); Creatinine Clr Calc Pharmacy 32.9 ml/min; Est GFR (African American) 30.2; Est GFR (Non-African American) 26.1; Potassium 4.3 mmol/L (3.5-5.1)
[2019-11-10] MEDS: METHADONE HCL 10 MG TAB PO SCH ×2 (08:20→20:53)
[2019-11-10] MEDS: METOPROLOL TARTRATE 25 MG TAB PO SCH ×2 (08:22→20:55)
[2019-11-10] MEDS: PANTOprazole 40 MG TAB PO SCH ×2 (08:23→20:54)
[2019-11-10] MEDS: CYANOCOBALAMIN 500 MCG TABLET (VITAMIN B-12) PO SCH (08:23)
[2019-11-10] MEDS: BuPROPion XL 300 MG TABCR PO SCH (08:24)
[2019-11-10] MEDS: metroNIDAZOLE 0.75% TOPICAL GEL 45 GM TUBE TOP SCH ×2 (08:50→20:55)
[2019-11-10] MEDS ORDERED: ACETAMINOPHEN 500 MG TAB PO PRN (14:21)
[2019-11-10] MEDS ORDERED: SODIUM CHLORIDE 0.9% 250 ML IV PRN (14:21)
[2019-11-10] MEDS ORDERED: POLYETHYLENE (MIRALAX) 17 GM PACK PO PRN (15:15)
[2019-11-10] MEDS ORDERED: POLYETHYLENE (MIRALAX) 17 GM PACK PO ONE (15:15)
[2019-11-10] MEDS: HEPARIN 100 UNIT/ML 5ML FLUSH FLUSH PRN (19:56)
--- NOTE | 2019-11-10 20:53 | Hospitalist Progress Note ---
Date of Service November 10, 2019 Assessment & Plan (1) Anemia: Hgb 6.3 day of admission. Underlying malignancy. No recent chemo. Anticoagulated for PAF. Chronic bloody drainage from vulvar lesion. No gross GI bleeding; not interested in pursuing endoscopic evaluation. Probable acute + chronic blood loss. Received 2 units of pRBC's so far. Still symptomatic. Will transfuse to Hgb >8. 3rd unit pRBC's today. Check Fe studies, B12, folate. (2) Acute kidney injury: Serum creatinine at time of admission 2.63 compared to recent baseline of 1.6. Acute kidney injury superimposed on CKD III. May have prerenal azotemia, ATN, or combination. Recently received TMP/sulfa. Losartan on hold. Creatinine today = 1.99. Follow. (3) CHF (congestive heart failure): History of chronic left ventricular diastolic heart failure. Compensated. (4) Atrial fibrillation: Hx of PAF. Per patient, only 1 occurrence at [facility] in [place] about 2 years ago. Currently in NSR. Now with severe anemia. Blood discharge from vulvar lesion. Risks of anticoagulation may outweigh benefits at this time. Discussed with pt- she will consider stopping apixaban. (5) Hypertension: Hemodynamically stable. Continue metoprolol. (6) Chronic kidney disease, stage III (moderate): As noted above. 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 Recent PET showed progression of disease. No further treatments planned at this time. (8) Chronic pain due to malignant neoplastic disease: Continue usual analgesics. (9) DVT prophylaxis: No anticoagulants at this time due to vulvar bleeding and severe anemia. SCD's. Ambulate. (10) Discharge planning issues: Anticipated discharge to home with continuation of hospice and [facility] @ home. Admission and Anticipated Discharge Date Admission Date: November 09, 2019 Subjective Recheck for severe anemia and other problems. Patient seen in their room around 1400. Feels somewhat better, but still weak. Ongoing bloody drainage from vulvar lesion. No melena or hematochezia. Review of Systems: Constitutional- no fever. Cardiac- no chest pain. Pulmonary- no cough or SOB. GI- no nausea, vomiting, diarrhea, melena, hematochezia. - no dysuria; chronic vulvar drainage, unchanged. Otherwise, as noted above. Physical Exam Constitutional: no acute distress Respiratory: no respiratory distress Auscultation: lungs clear to auscultation bilaterally Cardiovascular: Rate/Rhythm: regular rate and regular rhythm Heart Sounds: no gallop, no murmur and no cardiac rub Vessels: no JVD Extremities: no calf tenderness and no edema Gastrointestinal (Abdomen): normal bowel sounds, soft, nontender, no hepatosplenomegaly Musculoskeletal: Extremities: no cyanosis Skin: no rashes, warm and dry Psychiatric: Orientation: alert and oriented x 3 Results & Data Results & Data ([facility]) Vital Signs (Past 12 Hours) Vital Signs Temp Pulse Pulse Resp BP BP Pulse Ox 11/10/19 18:15 36.8 C 76 18 120/59 L 97 11/10/19 17:15 37.1 C 74 18 113/55 L 98 11/10/19 16:45 36.6 C 74 18 102/59 L 98 11/10/19 16:15 36.5 C 74 18 111/62 98 11/10/19 16:00 37.3 C 72 18 101/55 L 94 11/10/19 15:45 37.0 C 75 18 124/69 95 11/10/19 15:40 37.3 C 73 18 100/59 L 96 11/10/19 15:00 74 11/10/19 12:02 36.7 C 103 H 18 94/56 L 96 Laboratory Results Laboratory Results - last 24 hr 11/09/19 11/10/19 11/10/19 00:07 06:08 06:08 WBC 12.46 H RBC 2.39 L Hgb 7.2 L Hct 22.2 L MCV 92.9 MCH 30.1 MCHC 32.4 RDW Std Deviation 59.9 H RDW Coeff of Rylan 17.6 H Plt Count 272 MPV 8.4 Immature Gran % (Auto) 0.4 Neut % (Auto) 86.3 Lymph % (Auto) 4.3 [place] % (Auto) 7.1 Eos % (Auto) 1.7 Baso % (Auto) 0.2 Neut # (Auto) 10.76 H Lymph # (Auto) 0.53 L [place] # (Auto) 0.88 H Eos # (Auto) 0.21 Baso # (Auto) 0.03 Immature Gran # (Auto) 0.05 H RBC Morphology Unremarkable Sodium 135 L Potassium 4.3 Chloride 106 Carbon Dioxide 21 Anion Gap 8.0 BUN 36 H Creatinine 1.99 H D Est Cr Clr Drug Dosing 32.9 Est GFR ( Amer) 30.2 Est GFR (Non-Af Amer) 26.1 BUN/Creatinine Ratio 18.2 Glucose 86 Calcium 7.9 L Blood Type A Positive Antibody Screen NEGATIVE Crossmatch See Detail (1) Anemia Anemia type: unspecified type Qualified Code(s): D64.9 - Anemia, unspecified (2) CHF (congestive heart failure) Heart failure chronicity: acute Heart failure type: unspecified Qualified Code(s): I50.9 - Heart failure, unspecified (3) Atrial fibrillation Atrial fibrillation type: paroxysmal Qualified Code(s): I48.0 - Paroxysmal atrial fibrillation (4) Hypertension Hypertension type: essential hypertension Qualified Code(s): I10 - Essential (primary) hypertension
[2019-11-10] MEDS: DOCUSATE SODIUM/SENNA 50/8.6MG TAB PO SCH (20:54)
[2019-11-11 05:55] LABS: Hematocrit (blood only) 25.2 % (37-47); Hemoglobin 8.1 g/dL (12.0-16.0); Mean Corpuscular Hgb Conc 32.1 g/dL (32-36); Mean Corpuscular Volume 93.3 fL (80-100); Mean Platelet Volume 8.5 fL (7.4-10.4); Platelet Count 253 K/uL (130-400); RDW Coefficient of Variation 16.8 % (11.5-14.5); RDW Standard Deviation 57.5 fL (36.4-46.3); Reticulocyte % 1.3 % (0.5-2.0); Reticulocytes # 0.04 10^6/uL (0.02-0.10)
[2019-11-11 06:24] LABS: BUN Creatinine Ratio 17.6 (10-20); Creatinine Clr Calc Pharmacy 35.9 ml/min; Est GFR (African American) 33.4; Est GFR (Non-African American) 28.9; Potassium 4.3 mmol/L (3.5-5.1)
[2019-11-11] MEDS: LEVOTHYROXINE SODIUM 175 MCG TABLET PO SCH (06:25)
[2019-11-11] MEDS: metroNIDAZOLE 0.75% TOPICAL GEL 45 GM TUBE TOP SCH (08:06)
[2019-11-11] MEDS: METHADONE HCL 10 MG TAB PO SCH (08:06)
[2019-11-11] MEDS: PANTOprazole 40 MG TAB PO SCH (08:09)
[2019-11-11] MEDS: DOCUSATE SODIUM/SENNA 50/8.6MG TAB PO SCH (08:09)
[2019-11-11] MEDS: METOPROLOL TARTRATE 25 MG TAB PO SCH (08:09)
[2019-11-11] MEDS: CYANOCOBALAMIN 500 MCG TABLET (VITAMIN B-12) PO SCH (08:09)
[2019-11-11] MEDS: BuPROPion XL 300 MG TABCR PO SCH (08:10)
[2019-11-11 08:13] LABS: Folate (Folic Acid) 3.16 ng/ml (>5.38)
--- NOTE | 2019-11-11 17:48 | Hospitalist Progress Note ---
Date of Service November 11, 2019 Assessment & Plan (1) Anemia: Hgb 6.3 day of admission. Underlying malignancy. No recent chemo. Anticoagulated for PAF. Chronic bloody drainage from vulvar lesion. No gross GI bleeding; not interested in pursuing endoscopic evaluation. Probable acute + chronic blood loss. Received 3 units of pRBC's. Hgb today = 8.1. Fe 57, % transferrin sat 47%. Continue supplemental Fe. B12 882. Continue supplemental B12. Folate 3.16. Start folic acid 1 mg daily. Follow H/H as clinically indicated. (2) Acute kidney injury: Serum creatinine at time of admission 2.63 compared to recent baseline of 1.6. Acute kidney injury superimposed on CKD III. May have prerenal azotemia, ATN, or combination. Recently received TMP/sulfa. Losartan on hold. Creatinine today = 1.83. Follow as clinically indicated. (3) CHF (congestive heart failure): History of chronic left ventricular diastolic heart failure. Compensated. (4) Atrial fibrillation: Hx of PAF. Per patient, only 1 occurrence at [facility] in [place] about 2 years ago. Currently in NSR. Now with severe anemia. Bloody discharge from vulvar lesion. Risks of anticoagulation may outweigh benefits at this time. Discussed with pt and she agrees with stopping apixaban. (5) Hypertension: Hemodynamically stable. Continue metoprolol. (6) Chronic kidney disease, stage III (moderate): As noted above. 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 Recent PET showed progression of disease. No further treatments planned at this time. Referred to hospice. (8) Chronic pain due to malignant neoplastic disease: Continue usual analgesics. (9) DVT prophylaxis: No anticoagulants at this time due to vulvar bleeding and severe anemia. SCD's. Ambulate. (10) Discharge planning issues: Anticipated discharge to home with continuation of hospice care with [facility] Hospice. Hematology / Medical Oncology follow-up with Dr. Mo Almanza. Admission and Anticipated Discharge Date Admission Date: November 09, 2019 Subjective Recheck for severe anemia and other problems. Patient seen in their room around 1530. Feels better since receiving pRBC's. Ongoing bloody drainage from vulvar lesion. No melena or hematochezia. Ready to go home today. Review of Systems: Constitutional- no fever. Cardiac- no chest pain. Pulmonary- no cough or SOB. GI- no nausea, vomiting, diarrhea, melena, hematochezia. - no dysuria; chronic vulvar drainage, unchanged. Otherwise, as noted above. Physical Exam Constitutional: no acute distress Respiratory: no respiratory distress Auscultation: lungs clear to auscultation bilaterally Cardiovascular: Rate/Rhythm: regular rate and regular rhythm Heart Sounds: no gallop, no murmur and no cardiac rub Vessels: no JVD Extremities: no calf tenderness and no edema Gastrointestinal (Abdomen): normal bowel sounds, soft, nontender, no hepatosplenomegaly Musculoskeletal: Extremities: no cyanosis Skin: no rashes, warm and dry Psychiatric: Orientation: alert and oriented x 3 Results & Data Results & Data ([facility]) Vital Signs (Past 12 Hours) Vital Signs Temp Pulse Pulse Resp BP Pulse Ox 11/11/19 15:00 69 11/11/19 12:37 36.9 C 67 20 116/66 96 11/11/19 08:18 36.5 C 71 20 104/62 95 11/11/19 07:20 65 Laboratory Results 11/11/19 05:37 11/11/19 05:37 (1) Anemia Anemia type: unspecified type Qualified Code(s): D64.9 - Anemia, unspecified (2) CHF (congestive heart failure) Heart failure chronicity: acute Heart failure type: unspecified Qualified Code(s): I50.9 - Heart failure, unspecified (3) Atrial fibrillation Atrial fibrillation type: paroxysmal Qualified Code(s): I48.0 - Paroxysmal atrial fibrillation (4) Hypertension Hypertension type: essential hypertension Qualified Code(s): I10 - Essential (primary) hypertension
--- NOTE | 2019-11-12 09:01 | Discharge Summary ---
Date of Service Date of Admission: 11/09/19 Date of Discharge: 11/11/19 Admission HPI Per Admitting Provider History obtained from patient and records. Medical history significant for chronic CHF (EF 50 to 55%, TTE 2018), PAF on Eliquis, PVD as per records, hypertension, hyperlipidemia, hypothyroidism, Hodgkin's lymphoma status post chemoradiation, chronic pain secondary to metastatic vulvar cancer status post chemoradiation on chronic methadone, CKD (recent baseline of 2.4 last month), chronic anemia (baseline hemoglobin of 7). Recent outpatient [facility] Oncology follow-up visit last month. PET/CT from August 2019 showed disease progression as per note. Patient hemoglobin noted to be 7.2, serum creatinine 2.4. Home hospice recommended by oncologist given declining performance status. Patient also saw [facility] wound care center outpatient last month for vulvar/groin wound follow-up. Necrotic vulvar/groin wound not debrided as per note. Topical medication and Bactrim course prescribed by wound care provider. Some improvement with groin wound/drainage as per patient. This afternoon, patient got up to go to the bathroom when her walker shifted causing her to fall on the ground hitting her left upper extremity resulting in a bleeding laceration. No head trauma, LOC, chest pain, S OB. Denies abdominal pain, black/bloody stools. Minimal left upper extremity discomfort. Laceration on left upper extremity repaired at the ER. Hemoglobin noted to be 6.3. 1 unit packed RBC transfused at the ER. Principal Diagnosis severe anemia chronic blood loss carcinoma of vulva acute kidney injury Discharge Data Allergies Allergy/AdvReac Type Severity Reaction Status Date / Time iodine Allergy Severe TROUBLE Verified 11/08/19 23:28 BREATHING AND NEED EPI PEN aspirin Allergy Intermediate HIVES, Verified 11/08/19 23:28 ITCHING naproxen Allergy Intermediate HIVES Verified 11/08/19 23:28 IV CONTRAST=RESPIRATORY Allergy Severe TROUBLE Uncoded 11/08/19 23:28 DIFFICULTIES BREATHING IV DYE Allergy Severe TROUBLE Uncoded 11/08/19 23:28 BREATHING PINEAPPLE=SWOLLEN LIPS AND Allergy Intermediate LIPS AND Uncoded 11/08/19 23:28 TONGUE TONGUE SWELL SMOKE Allergy Unknown Unknown Uncoded 11/08/19 23:28 Consultations 11/08/19 23:38 ED Decision to Admit Stat 11/09/19 03:08 Consult Case Management - Discharge Planning Routine Hospital Course (1) Anemia: History of chronic anemia. Hgb 6.3 day of admission. Underlying squamous cell carcinoma of vulva with chronic bloody drainage from vulvar lesion. No recent chemo. Anticoagulated for PAF. No gross GI bleeding; not interested in pursuing endoscopic evaluation. Probable acute + chronic blood loss. Received 3 units of pRBC's. Transfusion goal Hgb > 8. Hgb day of discharge 8.1. Fe 57, % transferrin sat 47%. Continue supplemental Fe. B12 882. Continue supplemental B12. Folate 3.16. Start folic acid 1 mg daily. Follow H/H as clinically indicated. (2) Acute kidney injury: Serum creatinine at time of admission 2.63 compared to recent baseline of 1.6. Acute kidney injury superimposed on CKD III. May have prerenal azotemia, ATN, or combination. Recently received TMP/sulfa. Creatinine of discharge 1.83. Follow as clinically indicated. (3) CHF (congestive heart failure): History of chronic left ventricular diastolic heart failure. Compensated. (4) Atrial fibrillation: Hx of PAF. Per patient, only 1 occurrence at [facility] in [place] about 2 years ago. Currently in NSR. Now with severe anemia. Bloody discharge from vulvar lesion. Risks of anticoagulation probably outweighs benefits at this time. Discussed with pt and she agreed with stopping apixaban. (5) Hypertension: Hemodynamically stable. Continue amlodipine, losartan, metoprolol. (6) Chronic kidney disease, stage III (moderate): As noted above. 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 Recent PET showed progression of disease. No further treatments planned at this time. Referred to hospice. (8) Chronic pain due to malignant neoplastic disease: Continue usual analgesics. (9) DVT prophylaxis: No anticoagulants at this time due to vulvar bleeding and severe anemia. SCD's. Ambulate. (10) Discharge planning issues: Discharge to home with continuation of hospice care with [facility]. Hematology / Medical Oncology follow-up with Dr. Mo Almanza. Total Time Total Time Spent Total Time Spent (In Minutes): 40 Discharge Plan Discharge Items Patient Disposition: Hospice - Home Reason For Visit: anemia, worsening kidney function Discharge Diagnosis: anemia, worsening kidney function Condition on Discharge: Fair Activity: Resume your previous activity Non-emergency contact: Primary Care Provider, Hospitalist and Oncologist Call non-emergency contact if: you have any medication questions and your symptoms worsen Follow-up/Referrals: Mo Almanza MD [Primary Care Provider] - Diet: Heart Healthy Addtl Attending Provider Instructions: MEDICATION CHANGES: Stop apixaban (Eliquis) due to bloody discharge and severe anemia. Start folic acid 1 mg daily for anemia. Continue iron supplement as before. SUMMARY OF TEST RESULTS: Hemoglobin was 6.3 day of admission. Hemoglobin was 8.1 day of discharge. Folic acid level was low. RECOMMENDATIONS FOR FOLLOW-UP: Hospice care at home. OTHER INSTRUCTIONS: Please have hospice nurse remove sutures from laceration around 11/19 - 11/21. Seek medical attention if you have: * temperature above 101 * chest pain or trouble breathing * abdominal pain, nausea, vomiting * diarrhea, dark stools or bloody stools * any unanswered questions or concerns Call [phone] if symptoms are severe. Please take good care of yourself. Call if you have any questions or problems. You can reach a [facility] hospitalist on duty at [facility] 24 hours a day by calling [phone]. My cell # is [phone]. Pending Studies at Discharge: No Stand-Alone Forms: [facility] Medications and DC Order Prescriptions: New folic acid 1 mg tablet 1 mg PO DAILY Qty: 30 RF: 5 Continued levothyroxine [Synthroid] 175 mcg Tablet 175 mcg PO QAM RF: 0 methadone 10 mg Tablet 10 mg PO Q12H RF: 0 cyanocobalamin (vitamin B-12) [Vitamin B-12] 1,000 mcg Tablet 1,000 mcg PO QAM RF: 0 amoxicillin 500 mg Tablet 500 mg PO DIRECTED PRN (Reason: Dental Appointment) RF: 0 lorazepam [Ativan] 0.5 mg Tablet 0.5 mg PO BID PRN (Reason: Anxiety) RF: 0 amlodipine 10 mg Tablet 10 mg PO QAM RF: 0 pantoprazole 40 mg Tablet,Delayed Release (Dr/Ec) 40 mg PO BID RF: 0 lorazepam [Ativan] 1 mg Tablet 1 mg PO DIRECTED PRN (Reason: Prior PET Scan) RF: 0 oxycodone 10 mg Tablet 10 mg PO Q4H PRN (Reason: Pain) RF: 0 melatonin 5 mg Tablet 5 mg PO HS PRN (Reason: Sleep) RF: 0 losartan 100 mg Tablet 100 mg PO DAILY RF: 0 bupropion HCl [Wellbutrin XL] 300 mg tablet extended release 24 hr 300 mg PO QAM RF: 0 metronidazole [Metrogel] 1 % gel 1 appln TOP DAILY PRN (Reason: VULVAR ULCER) RF: 0 metoprolol tartrate 50 mg tablet 100 mg PO PM RF: 0 Discontinued Eliquis 5 mg Tablet 5 mg PO BID RF: 0 Discharge Orders: Discharge Order (Routine); Ordered 11/11/19 Ordered By: Khadar Chen Admission Data Admit Date/Time: 11/09/19 01:02 Attending Provider: Khadar Chen Admit Provider: Isai Roman Primary Care Provider: Mo Almanza Other Providers: Isai Roman ; [facility] ; [place] Other Interventions: Discharge Summary Assessment (RN) Last Done: 11/11/19 18:09 DC Date/Time DO NOT enter until pt leaves facility: 11/11/19 19:07
== END 2019-11-11 19:07 | disposition hospice, home (50) | DRG 812 ==
LOC: ED 19:18 → 2N 11-09 01:02

== ENCOUNTER 2019-12-15 14:05 | Inpatient (IN) ==
[2019-12-15] MEDS ORDERED: MoRPHine SULFATE 2 MG/ML CARP IV PRN (14:21)
--- NOTE | 2019-12-15 14:24 | Emergency Department Note ---
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 Her caretakers are unable to care for her anymore. They tried to place her in respite care/SNF and they were unsuccessful so they sent her in the ER for placement. Patient has diffuse pain. She denies any new headache, chest pain, shortness of breath, belly pain. She notes worsening pain in her groin. She notes that she wants to go home and at home. ROS: See above HPI for pertinent positives & negatives. A total of 10 systems reviewed and were otherwise negative. PAST MEDICAL HISTORY:See Below PAST SURGICAL HISTORY:See Below FAMILY HISTORY:See Below SOCIAL HISTORY:See Below HOME MEDICATIONS:See Below ALLERGIES:See Below VITALS:See Below PHYSICAL EXAMINATION: GENERAL: Ill-appearing laying in bed significant pain with any movement of the legs, smell of stool present EYE EXAM: normal conjunctiva. OROPHARYNX: mucous membranes are dry LUNGS: Clear to auscultation. Normal chest wall mechanics HEART: no murmurs, S1 normal and S2 normal ABDOMEN: abdomen soft, non-tender, normo-active bowel sounds, no masses, no rebound or guarding. : Stool and serosanguineous fluid oozing up through the lower pelvis. Complete necrosis of the labia. Wound stretching through left proximal femur BACK: Back is symmetrical on inspection and there is no deformity, no midline t enderness, no CVA tenderness. UPPER EXTREMITIES: upper extremities are grossly normal. LOWER EXTREMITIES: No pitting edema. NEURO EXAM: Awake alert oriented to person, place and year. MEDICAL DECISION MAKING: Patient is a 64-year-old female with vulvar cancer who hospice is unable to care for at home anymore and unable to place a center in the ER for a respite care. Patient is awake alert and oriented. She does not want any aggressive measures. She is agreeable to fluids and antibiotics. On presentation she is found to be hypotensive with systolic pressures in the 80s. IV was established blood was obtained. Labs show a leukocytosis 32,000. Mild anemia at 8. INR unremarkable. Potassium is elevated at 6.1. Creatinine at 4.3. Magnesium was low 1.5. Troponin was negative. Patient was given 2 L IV fluids. She was given IV Zosyn. She was updated bedside. Currently she is DNR/DNI with no aggressive measures with the exception of IV fluids and IV antibiotics. Throughout her stay in the ER her blood pressures did deteriorate into the 70s and 60s but eventually came back with the fluids into the 80s. She was given IV narcotics as well. Triage Nursing notes reviewed. Prior medical records reviewed Vital Signs: reviewed and remarkable for hypotensive Differential diagnosis: Differential diagnosis includes etiologies such as sepsis, UTI, pneumonia, metabolic, electrolyte abnormalities, cardiac sources, intracerebral event, toxicologic, neurological, as well as others were entertained. ER treatment provided: See below Diagnostics interpreted by me: ECG: Sinus rhythm rate of 60 DWI in the high lateral leads DWI V2 Nonspecific ST wave changes in the lateral leads No PVCs Cardiac Monitoring: An order was placed for continuous cardiac monitoring. The monitor shows a rate of 61 with sinus rhythm. Laboratory studies: As stated above and show below. Imaging studies: See below Consultation(s): Discussed with Karis Fernando from [facility] service ED COURSE: Procedures: none Critical Care: None Past Med/Surg History Medical History Anxiety Asthma (Acute) Atrial fibrillation Paroxysmal- on Eliquis CHF (congestive heart failure) Chronic pain due to malignant neoplastic disease COPD (chronic obstructive pulmonary disease) per records Depression GERD (gastroesophageal reflux disease) Hodgkins lymphoma 1992, stage IIB, nodular sclerosing, s/p XRT and chemotherapy Hypertension Obesity Vulvar cancer dx 2019 (upcoming chemo) Surgical History H/O oophorectomy LEFT History of carpal tunnel surgery of right wrist History of hip replacement, total History of lumbar laminectomy History of open reduction and internal fixation (ORIF) procedure Left ankle open fracture debridement: 04/20/19: MAC 3, ETT 7 at [facility] Family History Other No pertinent family history in first degree relatives Social History Smoking Status: Never smoker Second Hand Exposure: No; Hx Alcohol Use: Yes Hx Substance Use: No Preferred Language: Setswana Communication Ability: Effective Range Aid Required: No Beliefs That Will Affect Care: None marital status: Single Current Living Situation: Alone Current Living Situation Comment: HOSPICE CARE AT HOME current occupational status: employed Other Information That Helps Us Care for You: No Feels Safe at Home: Yes Allergies Allergies Allergy/AdvReac Type Severity Reaction Status Date / Time iodine Allergy Severe TROUBLE Verified 12/15/19 14:44 BREATHING AND NEED EPI PEN aspirin Allergy Intermediate HIVES, Verified 12/15/19 14:44 ITCHING naproxen Allergy Intermediate HIVES Verified 12/15/19 14:44 IV CONTRAST=RESPIRATORY Allergy Severe TROUBLE Uncoded 12/15/19 14:44 DIFFICULTIES BREATHING IV DYE Allergy Severe TROUBLE Uncoded 12/15/19 14:44 BREATHING PINEAPPLE=SWOLLEN LIPS AND Allergy Intermediate LIPS AND Uncoded 12/15/19 14:44 TONGUE TONGUE SWELL SMOKE Allergy Unknown Unknown Uncoded 12/15/19 14:44 Home Meds Home Medications Medication Instructions Recorded Confirmed amlodipine 10 mg PO QAM 04/01/19 12/15/19 amoxicillin 500 mg PO DIRECTED PRN 04/01/19 12/15/19 cyanocobalamin (vitamin B-12) 1,000 mcg PO QAM 04/01/19 12/15/19 [Vitamin B-12] levothyroxine [Synthroid] 175 mcg PO QAM 04/01/19 12/15/19 lorazepam [Ativan] 0.5 mg PO BID PRN 04/01/19 12/15/19 lorazepam [Ativan] 1 mg PO DIRECTED PRN 04/01/19 12/15/19 melatonin 5 mg PO HS PRN 04/01/19 12/15/19 methadone 10 mg PO Q12H 04/01/19 12/15/19 oxycodone 10 mg PO Q4H PRN 04/01/19 12/15/19 pantoprazole 40 mg PO BID 04/01/19 12/15/19 metoprolol tartrate 100 mg PO PM 04/19/19 12/15/19 bupropion HCl [Wellbutrin XL] 300 mg PO QAM 11/08/19 12/15/19 losartan 100 mg PO DAILY 11/08/19 12/15/19 metronidazole [Metrogel] 1 appln TOP DAILY PRN 11/08/19 12/15/19 Previous Rx's Medication Instructions Recorded folic acid 1 mg PO DAILY #30 tab 11/11/19 Results & Data (ED) Vital Signs Vital Signs - 24 hr 12/15/19 14:12 12/15/19 14:24 12/15/19 14:30 Temperature 37.0 C Temperature Source Oral Pulse Rate 66 64 62 Pulse Rate from SpO2 Sensor 65 64 65 Respiratory Rate 15 12 15 Respiratory Effort / Characteristics Non-Labored Respiratory Depth Normal Blood Pressure 85/46 L 85/56 L Blood Pressure Mean 62 65 Pulse Oximetry 96 97 91 Oxygen Delivery Method Room Air Sepsis Recent Fever Within 48 Hours No Sepsis New/Unexplained Change in Mental Status Yes Sepsis Action Taken by Nursing Physician Notified 12/15/19 14:32 12/15/19 14:40 12/15/19 14:44 Temperature Temperature Source Pulse Rate 63 63 Pulse Rate from SpO2 Sensor 71 Respiratory Rate 14 15 Respiratory Effort / Characteristics Respiratory Depth Blood Pressure 91/34 L Blood Pressure Mean 44 Pulse Oximetry 92 95 Oxygen Delivery Method Room Air Sepsis Recent Fever Within 48 Hours Sepsis New/Unexplained Change in Mental Status Sepsis Action Taken by Nursing 12/15/19 14:46 12/15/19 14:50 12/15/19 15:00 Temperature Temperature Source Pulse Rate 63 61 60 Pulse Rate from SpO2 Sensor 60 Respiratory Rate 13 12 14 Respiratory Effort / Characteristics Respiratory Depth Blood Pressure 66/35 L 70/38 L Blood Pressure Mean 47 58 Pulse Oximetry 93 Oxygen Delivery Method Sepsis Recent Fever Within 48 Hours Sepsis New/Unexplained Change in Mental Status Sepsis Action Taken by Nursing 12/15/19 15:01 12/15/19 15:10 12/15/19 15:15 Temperature Temperature Source Pulse Rate 61 60 59 L Pulse Rate from SpO2 Sensor 61 60 59 L Respiratory Rate 13 16 12 Respiratory Effort / Characteristics Respiratory Depth Blood Pressure 71/36 L Blood Pressure Mean 51 Pulse Oximetry 95 95 94 Oxygen Delivery Method Sepsis Recent Fever Within 48 Hours Sepsis New/Unexplained Change in Mental Status Sepsis Action Taken by Nursing 12/15/19 15:16 12/15/19 15:20 12/15/19 15:30 Temperature Temperature Source Pulse Rate 58 L 60 62 Pulse Rate from SpO2 Sensor 58 L 60 61 Respiratory Rate 15 14 13 Respiratory Effort / Characteristics Respiratory Depth Blood Pressure 82/44 L Blood Pressure Mean 59 Pulse Oximetry 93 98 96 Oxygen Delivery Method Sepsis Recent Fever Within 48 Hours Sepsis New/Unexplained Change in Mental Status Sepsis Action Taken by Nursing 12/15/19 15:31 12/15/19 15:40 12/15/19 15:49 Temperature Temperature Source Pulse Rate 61 59 L 60 Pulse Rate from SpO2 Sensor 61 60 60 Respiratory Rate 17 15 11 L Respiratory Effort / Characteristics Respiratory Depth Blood Pressure 65/20 L Blood Pressure Mean 35 Pulse Oximetry 96 95 93 Oxygen Delivery Method Sepsis Recent Fever Within 48 Hours Sepsis New/Unexplained Change in Mental Status Sepsis Action Taken by Nursing 12/15/19 15:50 12/15/19 15:51 12/15/19 15:55 Temperature Temperature Source Pulse Rate 58 L 60 59 L Pulse Rate from SpO2 Sensor 59 L 60 58 L Respiratory Rate 10 L 13 16 Respiratory Effort / Characteristics Respiratory Depth Blood Pressure 54/24 L Blood Pressure Mean 33 33 Pulse Oximetry 92 93 91 Oxygen Delivery Method Sepsis Recent Fever Within 48 Hours Sepsis New/Unexplained Change in Mental Status Sepsis Action Taken by Nursing 12/15/19 16:00 12/15/19 16:02 12/15/19 16:10 Temperature Temperature Source Pulse Rate 59 L 60 60 Pulse Rate from SpO2 Sensor 59 L 59 L 57 L Respiratory Rate 11 L 14 13 Respiratory Effort / Characteristics Respiratory Depth Blood Pressure Blood Pressure Mean Pulse Oximetry 94 95 97 Oxygen Delivery Method Sepsis Recent Fever Within 48 Hours Sepsis New/Unexplained Change in Mental Status Sepsis Action Taken by Nursing 12/15/19 16:15 12/15/19 16:20 12/15/19 16:25 Temperature Temperature Source Pulse Rate 60 58 L 60 Pulse Rate from SpO2 Sensor 60 58 L 61 Respiratory Rate 15 18 16 Respiratory Effort / Characteristics Respiratory Depth Blood Pressure 79/39 L Blood Pressure Mean 52 Pulse Oximetry 94 94 97 Oxygen Delivery Method Sepsis Recent Fever Within 48 Hours Sepsis New/Unexplained Change in Mental Status Sepsis Action Taken by Nursing 12/15/19 16:30 12/15/19 16:31 12/15/19 16:35 Temperature Temperature Source Pulse Rate 61 59 L 61 Pulse Rate from SpO2 Sensor 60 59 L 60 Respiratory Rate 16 18 18 Respiratory Effort / Characteristics Respiratory Depth Blood Pressure 81/40 L Blood Pressure Mean 62 Pulse Oximetry 97 96 96 Oxygen Delivery Method Sepsis Recent Fever Within 48 Hours Sepsis New/Unexplained Change in Mental Status Sepsis Action Taken by Nursing 12/15/19 16:40 12/15/19 16:45 12/15/19 16:50 Temperature Temperature Source Pulse Rate 58 L 60 61 Pulse Rate from SpO2 Sensor 59 L 60 61 Respiratory Rate 15 15 15 Respiratory Effort / Characteristics Respiratory Depth Blood Pressure Blood Pressure Mean Pulse Oximetry 96 96 96 Oxygen Delivery Method Sepsis Recent Fever Within 48 Hours Sepsis New/Unexplained Change in Mental Status Sepsis Action Taken by Nursing 12/15/19 16:55 12/15/19 17:00 12/15/19 17:01 Temperature Temperature Source Pulse Rate 59 L 61 58 L Pulse Rate from SpO2 Sensor 59 L 61 58 L Respiratory Rate 17 14 13 Respiratory Effort / Characteristics Respiratory Depth Blood Pressure 75/38 L Blood Pressure Mean 56 Pulse Oximetry 95 96 97 Oxygen Delivery Method Sepsis Recent Fever Within 48 Hours Sepsis New/Unexplained Change in Mental Status Sepsis Action Taken by Nursing 12/15/19 17:05 12/15/19 17:10 12/15/19 17:15 Temperature Temperature Source Pulse Rate 59 L 60 59 L Pulse Rate from SpO2 Sensor 59 L 60 59 L Respiratory Rate 18 15 17 Respiratory Effort / Characteristics Respiratory Depth Blood Pressure Blood Pressure Mean Pulse Oximetry 97 95 95 Oxygen Delivery Method Sepsis Recent Fever Within 48 Hours Sepsis New/Unexplained Change in Mental Status Sepsis Action Taken by Nursing 12/15/19 17:20 12/15/19 17:25 12/15/19 17:30 Temperature Temperature Source Pulse Rate 59 L 58 L 60 Pulse Rate from SpO2 Sensor 59 L 58 L 60 Respiratory Rate 18 16 27 H Respiratory Effort / Characteristics Respiratory Depth Blood Pressure 74/41 L Blood Pressure Mean 53 Pulse Oximetry 96 97 96 Oxygen Delivery Method Sepsis Recent Fever Within 48 Hours Sepsis New/Unexplained Change in Mental Status Sepsis Action Taken by Nursing 12/15/19 17:31 12/15/19 17:35 12/15/19 17:40 Temperature Temperature Source Pulse Rate 59 L 58 L 60 Pulse Rate from SpO2 Sensor 59 L 58 L 59 L Respiratory Rate 18 14 19 Respiratory Effort / Characteristics Respiratory Depth Blood Pressure Blood Pressure Mean Pulse Oximetry 97 96 97 Oxygen Delivery Method Sepsis Recent Fever Within 48 Hours Sepsis New/Unexplained Change in Mental Status Sepsis Action Taken by Nursing 12/15/19 17:45 12/15/19 17:50 12/15/19 17:55 Temperature Temperature Source Pulse Rate 58 L 60 60 Pulse Rate from SpO2 Sensor 58 L 59 L 60 Respiratory Rate 23 20 15 Respiratory Effort / Characteristics Respiratory Depth Blood Pressure Blood Pressure Mean Pulse Oximetry 97 95 97 Oxygen Delivery Method Sepsis Recent Fever Within 48 Hours Sepsis New/Unexplained Change in Mental Status Sepsis Action Taken by Nursing 12/15/19 18:00 12/15/19 18:01 12/15/19 18:05 Temperature Temperature Source Pulse Rate 60 59 L 61 Pulse Rate from SpO2 Sensor 59 L 60 60 Respiratory Rate 17 18 14 Respiratory Effort / Characteristics Respiratory Depth Blood Pressure 72/44 L Blood Pressure Mean 58 Pulse Oximetry 96 96 95 Oxygen Delivery Method Sepsis Recent Fever Within 48 Hours Sepsis New/Unexplained Change in Mental Status Sepsis Action Taken by Nursing 12/15/19 18:10 12/15/19 18:24 12/15/19 18:25 Temperature Temperature Source Pulse Rate 60 59 L 61 Pulse Rate from SpO2 Sensor 59 L 60 61 Respiratory Rate 18 15 16 Respiratory Effort / Characteristics Respiratory Depth Blood Pressure Blood Pressure Mean Pulse Oximetry 94 97 96 Oxygen Delivery Method Sepsis Recent Fever Within 48 Hours Sepsis New/Unexplained Change in Mental Status Sepsis Action Taken by Nursing 12/15/19 18:30 12/15/19 19:00 12/15/19 19:30 Temperature Temperature Source Pulse Rate 60 57 L 57 L Pulse Rate from SpO2 Sensor 60 Respiratory Rate 15 18 13 Respiratory Effort / Characteristics Respiratory Depth Blood Pressure 87/43 L 65/32 L 61/32 L Blood Pressure Mean 51 41 43 Pulse Oximetry 94 94 93 Oxygen Delivery Method Sepsis Recent Fever Within 48 Hours Sepsis New/Unexplained Change in Mental Status Sepsis Action Taken by Nursing 12/15/19 19:46 Temperature Temperature Source Pulse Rate 58 L Pulse Rate from SpO2 Sensor Respiratory Rate 12 Respiratory Effort / Characteristics Respiratory Depth Blood Pressure 88/39 L Blood Pressure Mean 44 Pulse Oximetry 97 Oxygen Delivery Method Sepsis Recent Fever Within 48 Hours Sepsis New/Unexplained Change in Mental Status Sepsis Action Taken by Nursing Laboratory Data Result diagrams: 12/15/19 15:29 12/15/19 15:29 Lab Results 12/15/19 12/15/19 12/15/19 Range/Units 15:29 15:29 15:29 WBC 32.83 H* (4.8-10.8) K/uL RBC 2.59 L (4.2-5.4) M/uL Hgb 8.0 L (12.0-16.0) g/dL Hct 25.0 L (37-47) % MCV 96.5 (80-100) fL MCH 30.9 (25-34) pg MCHC 32.0 (32-36) g/dL RDW Std Deviation 58.7 H (36.4-46.3) fL RDW Coeff of Rylan 16.6 H (11.5-14.5) % Plt Count 382 (130-400) K/uL MPV 8.6 (7.4-10.4) fL Immature Gran % (Auto) 1.0 % Neut % (Auto) 89.7 % Lymph % (Auto) 3.4 % [place] % (Auto) 4.9 % Eos % (Auto) 0.9 % Baso % (Auto) 0.1 % Neut # (Auto) 29.46 H (1.4-6.5) K/uL Lymph # (Auto) 1.10 L (1.2-3.4) K/uL [place] # (Auto) 1.62 H (0.11-0.59) K/uL Eos # (Auto) 0.31 (0-0.5) K/uL Baso # (Auto) 0.02 (0-0.2) K/uL Immature Gran # (Auto) 0.32 H (0.00-0.02) K/uL Echinocytes 1+ PT 10.8 (9.0-12.0) Seconds INR 1.0 (0.9-1.1) Sodium 134 L (136-145) mmol/L Potassium 6.1 H* (3.5-5.1) mmol/L Chloride 106 (98-107) mmol/L Carbon Dioxide 19 L (21-32) mmol/L Anion Gap 8.0 (3-11) BUN 77 H (7-18) mg/dl Creatinine 4.35 H (0.6-1.2) mg/dl Est Cr Clr Drug Dosing 13.9 ml/min Est GFR ( Amer) 11.7 Est GFR (Non-Af Amer) 10.1 BUN/Creatinine Ratio 17.7 (10-20) Glucose 83 (70-99) mg/dl Calcium 8.3 L (8.5-10.1) mg/dl Magnesium 1.5 L (1.8-2.4) mg/dl Total Bilirubin 0.3 (0.2-1) mg/dl AST 51 H (15-37) U/L ALT 13 (12-78) U/L Alkaline Phosphatase 158 H (45-117) U/L Troponin I < 0.015 (0-0.045) ng/ml Total Protein 4.8 L (6.4-8.2) gm/dl Albumin 1.4 L (3.4-5.0) gm/dl Globulin 3.4 (2.5-4.0) gm/dl Albumin/Globulin Ratio 0.4 L (0.9-2) Administered Medications Morphine Sulfate (Morphine Sulfate) 4 mg IV Q1H PRN PRN Reason: Severe Pain (Rating 7,8,9,10) Stop: 12/29/19 14:20 Last Admin: 12/15/19 18:23 Dose: 4 mg Documented by: [id number] Admin: 12/15/19 15:35 Dose: 4 mg Documented by: [id number] Discontinued Medications Sodium Chloride (Nss 1000ml) 1,000 mls @ 999 mls/hr IV .Q1H1M ONE Stop: 12/15/19 15:27 Last Infusion: 12/15/19 16:10 Dose: 0 mls/hr Documented by: [id number] Admin: 12/15/19 15:16 Dose: 999 mls/hr Documented by: [id number] Piperacillin Sod/Tazobactam Sod (Zosyn) 4.5 gm in 120 mls @ 240 mls/hr IV NOW ONE Stop: 12/15/19 15:21 Last Infusion: 12/15/19 16:10 Dose: 0 mls/hr Documented by: [id number] Admin: 12/15/19 15:36 Dose: 240 mls/hr Documented by: [id number] Sodium Chloride (Nss 1000ml) 1,000 mls @ 999 mls/hr IV .Q1H1M ONE Stop: 12/15/19 16:19 Last Infusion: 12/15/19 17:02 Dose: 0 mls/hr Documented by: [id number] Admin: 12/15/19 16:02 Dose: 999 mls/hr Documented by: [id number] Albumin Human (Albumin 25%) 50 mls @ 50 mls/hr IV ONE ONE Stop: 12/15/19 16:52 Last Infusion: 12/15/19 17:09 Dose: 0 mls/hr Documented by: [id number] Admin: 12/15/19 16:09 Dose: 50 mls/hr Documented by: [id number] Albumin Human (Albumin 25%) 50 mls @ 50 mls/hr IV ONE ONE Stop: 12/15/19 18:29 Last Infusion: 12/15/19 18:50 Dose: 0 mls/hr Documented by: [id number] Admin: 12/15/19 17:47 Dose: 50 mls/hr Documented by: [id number] Discharge Plan Visit Data Chief Complaint: Pain (Generalized) ED Provider: Mohamud Key Discharge Problem: Sepsis, Chronic pain, Acute hypotension, Weakness, Hospice care, MAGDALENA (acute kidney injury), Acute hyperkalemia Patient Disposition: Admitted As Inpatient Discharge Instructions Interventions: ED Discharge Assessment Last Done: 12/15/19 19:58 Discharge Problem: Sepsis Qualifiers: Sepsis type: sepsis due to unspecified organism Sepsis acute organ dysfunction status: unspecified Qualified Code(s): A41.9 - Sepsis, unspecified organism Chronic pain Qualifiers: Chronic pain type: other chronic pain Qualified Code(s): G89.29 - Other chronic pain
[2019-12-15] MEDS ORDERED: SODIUM CHLORIDE 0.9% 1000ML 1,000 ML IV ONE ×2 (14:27→15:19)
[2019-12-15] MEDS ORDERED: PIPERACILLIN/TAZOBACTAM 4.5 GM/120 ML BAG IV ONE (14:52)
[2019-12-15] MEDS ORDERED: PIPERACILL/TAZOBAC CONSULT ACTIVE PRN ×2 (14:52→20:22)
--- NOTE | 2019-12-15 15:29 | History & Physical Report ---
Date of Service December 15, 2019 Assessment & Plan (1) Hospice care: (2) Uncontrolled pain: (3) Septic shock: (4) Acute renal failure: (5) Squamous cell carcinoma of vulva: (6) Open wound of vulva with complication: This is a 64-year-old female on hospice with PMH of uncontrolled pain 2/2 metastatic vulvar cancer status post chemoradiation on chronic methadone, CKD (recent baseline of 2.4 last month), chronic anemia (baseline hemoglobin of 7), CHF and other medical problems listed below who presents from home due to worsening chronic groin wound and uncontrolled pain. Home hospice unable to adequately care for patient at home due to large necrotic wound of groin with high output of fecal material as well as uncontrolled pain in setting of metastatic vulvar cancer. Attempted to place her in respite care/ SNF and were unsuccessful. Patient lives alone and family support is not local. Discussed with Dr. Yates, who is familiar with patient and arranged for [facility] hospice admission. Dr. Christy and I also discussed with patient's POA, brother Stewart Keys who lives in [place] ([phone]), who confirmed plan to avoid aggressive measures and understands patient's condition and agrees with comfort care. Septic shock and acute renal failure in setting of squamous cell carcinoma with necrotic vulvar wound BP 80s/40s, now 75/38 despite aggressive IV fluid resuscitation Patient and POJose Armando William clearly not interested in aggressive measures such as IV pressors or resuscitation with CPR, shock or intubation Will continue Zosyn for antibiotic coverage along with IV fluids. Blood cultures drawn Wound care nurse for wound in groin Hospice Care Uncontrolled pain Comfort care orders place with IV morphine, Ativan and Atropine. Care on floor per [facility] hospice DNR/DNI. Case management consult placed. ALICE William: [phone] Patient seen in collaboration with Dr. Christy. Please see addendum. History of Present Illness Chief Complaint: Uncontrolled pain, vulvar cancer Primary Care Provider: NO PCP This is a 64-year-old female on hospice with PMH of uncontrolled pain 2/2 metastatic vulvar cancer status post chemoradiation on chronic methadone, CKD (recent baseline of 2.4 last month), chronic anemia (baseline hemoglobin of 7), CHF and other medical problems listed below who presents from home due to worsening chronic groin wound and uncontrolled pain. Patient has been following with [facility] oncology for vulvar cancer for the past few years and has undergone chemo and been intolerant to XRT. PET/CT from August 2019 showed disease progression and home hospice recommended by oncologist. Has also been following with [facility] wound care for palliative debridement and treatment but has been having increased fecal output at home, to the point that home hospice felt patient would be better cared for in the hospital. Also attempted to place her in respite care/ SNF and were unsuccessful. When patient initially evaluated, was able to express diffuse pain, specifically in area of wound. Expressed that she is okay with IV fluids and antibiotics but is not interested in any resuscitative efforts such as CPR, shock, intubation or IV pressors for blood pressure support. BP 80s/40s, now 75/38 despite aggressive IV fluid resuscitation. Was started on empiric Zosyn with wound cultures drawn. Has been receiving IV morphine for pain control and has become become more lethargic. Now unable to answer questions. Dr. Christy and I discussed situation with patient's POA, brother Stewart Keys who lives in [place] ([phone]), that unfortunately condition is not improving in emergency room. Stewart confirmed plan to avoid aggressive measures, understands patient's condition and agrees with comfort care. Also discussed with Dr. Yates, who is familiar with patient and arranged for [facility] hospice admission. Unable to assess ROS due to patient's altere d state. Allergies Allergy/AdvReac Type Severity Reaction Status Date / Time iodine Allergy Severe TROUBLE Verified 12/15/19 14:44 BREATHING AND NEED EPI PEN aspirin Allergy Intermediate HIVES, Verified 12/15/19 14:44 ITCHING naproxen Allergy Intermediate HIVES Verified 12/15/19 14:44 IV CONTRAST=RESPIRATORY Allergy Severe TROUBLE Uncoded 12/15/19 14:44 DIFFICULTIES BREATHING IV DYE Allergy Severe TROUBLE Uncoded 12/15/19 14:44 BREATHING PINEAPPLE=SWOLLEN LIPS AND Allergy Intermediate LIPS AND Uncoded 12/15/19 14:44 TONGUE TONGUE SWELL SMOKE Allergy Unknown Unknown Uncoded 12/15/19 14:44 Home Medications Home Medications Medication Instructions Recorded Confirmed Type amlodipine 10 mg PO QAM 04/01/19 12/15/19 History amoxicillin 500 mg PO DIRECTED PRN 04/01/19 12/15/19 History cyanocobalamin (vitamin B-12) 1,000 mcg PO QAM 04/01/19 12/15/19 History [Vitamin B-12] levothyroxine [Synthroid] 175 mcg PO QAM 04/01/19 12/15/19 History lorazepam [Ativan] 0.5 mg PO BID PRN 04/01/19 12/15/19 History lorazepam [Ativan] 1 mg PO DIRECTED PRN 04/01/19 12/15/19 History melatonin 5 mg PO HS PRN 04/01/19 12/15/19 History methadone 10 mg PO Q12H 04/01/19 12/15/19 History oxycodone 10 mg PO Q4H PRN 04/01/19 12/15/19 History pantoprazole 40 mg PO BID 04/01/19 12/15/19 History metoprolol tartrate 100 mg PO PM 04/19/19 12/15/19 History bupropion HCl [Wellbutrin XL] 300 mg PO QAM 11/08/19 12/15/19 History losartan 100 mg PO DAILY 11/08/19 12/15/19 History metronidazole [Metrogel] 1 appln TOP DAILY PRN 11/08/19 12/15/19 History folic acid 1 mg PO DAILY #30 tab 11/11/19 12/15/19 Rx Past Med/Surg History Medical History Anxiety Asthma (Acute) Atrial fibrillation Paroxysmal- on Eliquis CHF (congestive heart failure) Chronic pain due to malignant neoplastic disease COPD (chronic obstructive pulmonary disease) per records Depression GERD (gastroesophageal reflux disease) Hodgkins lymphoma 1992, stage IIB, nodular sclerosing, s/p XRT and chemotherapy Hypertension Obesity Vulvar cancer dx 2019 (upcoming chemo) Surgical History H/O oophorectomy LEFT History of carpal tunnel surgery of right wrist History of hip replacement, total History of lumbar laminectomy History of open reduction and internal fixation (ORIF) procedure Left ankle open fracture debridement: 04/20/19: MAC 3, ETT 7 at [facility] Family History Other No pertinent family history in first degree relatives Social History Smoking Status: Never smoker Second Hand Exposure: No; Hx Alcohol Use: Yes Hx Substance Use: No Preferred Language: Slovak Communication Ability: Effective Local Announcer Required: No Beliefs That Will Affect Care: None marital status: Single Current Living Situation: Alone Current Living Situation Comment: [facility] current occupational status: employed Other Information That Helps Us Care for You: No Feels Safe at Home: Yes Review of Systems Review of Systems: Unobtainable due to reduced consciousness Physical Exam Physical Exam: General Appearance: Ill appearing, morbidly obese, lethargic but able to answer yes/no questions Head: normocephalic, atraumatic Eyes: normal inspection, PERRL ENT: external ear and nose normal, oropharynx normal Neck: trachea midline, no thyromegaly, normal visual inspection Respiratory: normal respiratory effort, coarse breath sounds to auscultation, no wheeze, rales, rhonchi. No accessory muscle use Cardiovascular: bradycardic rate, regular rhythm, no murmur appreciated, normal peripheral pulses, no BLE edema. Vessels: no JVD Chest: normal inspection of chest Abdomen/GI: normal bowel sounds, soft, nontender, no hepatosplenomegaly : Necrotic wound of labia extending to groin with significant amount of stool and serosanguineous fluid visualized Extremities/Musculoskeletal: no cyanosis or clubbing, extremities motor strength 5/5 Neurologic: PERRL, EOMI,no dysarthria, CN's II-XI intact bilaterally and moves all extremities Psychiatric: A+Ox3 but lethargic. +Visual hallucinations near end of exam Skin: no rashes, normal color, warm/dry. + See Results & Data Results & Data ([facility]) Vital Signs (Past 12 Hours) Vital Signs Temp Pulse Resp BP Pulse Ox 12/15/19 15:15 59 L 12 71/36 L 94 12/15/19 15:10 60 16 95 12/15/19 15:01 61 13 95 12/15/19 15:00 60 14 70/38 L 93 12/15/19 14:50 61 12 12/15/19 14:46 63 13 66/35 L 12/15/19 14:44 95 12/15/19 14:40 63 15 92 12/15/19 14:32 63 14 91/34 L 12/15/19 14:30 37.0 C 62 15 85/56 L 91 12/15/19 14:24 64 12 97 12/15/19 14:12 66 15 85/46 L 96 Laboratory Results Short CBC 12/15/19 Range/Units 15:29 WBC 32.83 H* (4.8-10.8) K/uL Hgb 8.0 L (12.0-16.0) g/dL Hct 25.0 L (37-47) % Plt Count 382 (130-400) K/uL BMP 12/15/19 15:29 Sodium 134 L Potassium 6.1 H* Chloride 106 Carbon Dioxide 19 L BUN 77 H Creatinine 4.35 H Glucose 83 Calcium 8.3 L Cardiac Enzymes 12/15/19 Range/Units 15:29 Troponin I < 0.015 (0-0.045) ng/ml Liver Function 12/15/19 Range/Units 15:29 Total Bilirubin 0.3 (0.2-1) mg/dl AST 51 H (15-37) U/L ALT 13 (12-78) U/L Alkaline Phosphatase 158 H (45-117) U/L Albumin 1.4 L (3.4-5.0) gm/dl Code Status & VTE Plan VTE Prophylaxis Plan VTE Prophylaxis will be ordered: Yes Supervising Physician Co-Signing Physician Notes Patient was seen and examined by me, care coordinated with Karis Fernando PA-C. Please see her note above for further details. Mrs. Keys is a 64-year-old female, with history of metastatic squamous cell carcinoma of vulava status post chemotherapy and radiation, (followed with Dr. Almanza), history of Hodgkin's lymphoma status post chemotherapy and radiation, anemia, and chronic pain due to extensive vulvar wound who presents from home hospice, as reportedly her caretakers were not able to take care of her anymore and she had increased pain in her groin due to chronic wound. She was [facility] from [facility] on November 11, with home hospice. For pain patient was taking methadone. She was also seen by wound clinic for her extensive vulvar wound. Unfortunately, patient was brought into the emergency room as her caretakers were not able to take care of her anymore. We will try to clarify more, with [facility], Irene Cooper, and hospice [facility]. Patient's POA is her brother Stewart, who is aware of the patient being in the hospital. Mrs. Beverly Keys was seen in the emergency room by me and my colleague Karis Fernando PA-C, patient was lying in bed in no acute distress. She was awake however some questions she was not answering appropriately. She even mentioned that she saw a snake in the room. She was unable to tell me right away where she was however she was able to somewhat correct herself. She said that for past 2 days she had worsening of her pain in her groin area. Denies any chest pain or shortness of breath, fevers or chills. Heart sounds seem regular, mild bibasilar crackles without any wheezing noted. Abdomen soft, obese, nontender. No rashes or lesions noted on her extremities, no significant lower extremity or upper extremity edema noted. However patient does have large extensive wound of her entire groin area, with copious discharge accumulating, likely mixed with urine and stool. She was hypotensive with systolic blood pressure in 80s, in emergency room, and IV fluids and IV Zosyn was started by ED provider. Her blood pressure however did not respond, and so albumin was ordered. Blood work was obtained in the emergency room, however at the time of evaluation, results not available yet. Patient confirmed that she did not want any aggressive measures, but agrees to IV fluids and antibiotics. I contacted patient's POA, her brother, Mr. Stewart Keys, and informed him about a very poor prognosis, given that her blood pressure is very low and currently not responding well to fluids and antibiotics. He also informed me that patient would not want any aggressive measures and that patient is known to Dr. Yates, from palliative medicine, who was signing papers for Mrs. Paul, yesterday. As mentioned above, patient was in home hospice care until presented to emergency room today. My colleague Karis Fernando, was able to contact Dr. Yates, who recommended admission to inpatient hospice. I confirmed with Mr. Stewart Keys, that we will be admitting Mrs. Beverly Keys for comfort care measures, which he agrees to. Fred Christy MD
[2019-12-15] MEDS: MoRPHine SULFATE 4 MG/ML 1 ML CARP\\VIAL IV PRN ×2 (15:35→18:23)
[2019-12-15] MEDS ORDERED: ALBUMIN 25% 50 ML IV ONE ×2 (15:53→17:30)
[2019-12-15 16:05] LABS: Prothrombin Time 10.8 Seconds (9.0-12.0)
--- NOTE | 2019-12-15 16:14 | Hospitalist Progress Note ---
Date of Service December 15, 2019 Subjective Discussed with patient's POA, brother Stewart Keys, that unfortunately patient is not doing better in the emergency room, and explained that her blood pressure is lower now and she is somewhat confused. Stewart confirms, that patient is familiar with Dr. Yates, from palliative care. Also confirmed that patient did not want any aggressive measures, he understands patient's condition and agrees with comfort care measures. Fred Christy MD Results & Data Results & Data ([facility]) Vital Signs (Past 12 Hours) Vital Signs Temp Pulse Resp BP Pulse Ox 12/15/19 16:10 60 13 97 12/15/19 16:02 60 14 95 12/15/19 16:00 59 L 11 L 94 12/15/19 15:55 59 L 16 91 12/15/19 15:51 60 13 93 12/15/19 15:50 58 L 10 L 54/24 L 92 12/15/19 15:49 60 11 L 65/20 L 93 12/15/19 15:40 59 L 15 95 12/15/19 15:31 61 17 96 12/15/19 15:30 62 13 82/44 L 96 12/15/19 15:20 60 14 98 12/15/19 15:16 58 L 15 93 12/15/19 15:15 59 L 12 71/36 L 94 12/15/19 15:10 60 16 95 12/15/19 15:01 61 13 95 12/15/19 15:00 60 14 70/38 L 93 12/15/19 14:50 61 12 12/15/19 14:46 63 13 66/35 L 12/15/19 14:44 95 12/15/19 14:40 63 15 92 12/15/19 14:32 63 14 91/34 L 12/15/19 14:30 37.0 C 62 15 85/56 L 91 12/15/19 14:24 64 12 97 12/15/19 14:12 66 15 85/46 L 96
[2019-12-15 16:17] LABS: Alanine Aminotransferase 13 U/L (12-78); Albumin Globulin Ratio 0.4 (0.9-2); Albumin Level 1.4 gm/dl (3.4-5.0); Alkaline Phosphatase 158 U/L (45-117); Aspartate Aminotransferase 51 U/L (15-37); BUN Creatinine Ratio 17.7 (10-20); Bilirubin,Total 0.3 mg/dl (0.2-1); Blood Urea Nitrogen 77 mg/dl (7-18); Calcium 8.3 mg/dl (8.5-10.1); Carbon Dioxide 19 mmol/L (21-32); Chloride 106 mmol/L (98-107); Creatinine Clr Calc Pharmacy 13.9 ml/min; Est GFR (African American) 11.7; Est GFR (Non-African American) 10.1; Globulin 3.4 gm/dl (2.5-4.0); Glucose 83 mg/dl (70-99); Magnesium 1.5 mg/dl (1.8-2.4); Potassium 6.1 mmol/L (3.5-5.1); Sodium 134 mmol/L (136-145); Total Protein 4.8 gm/dl (6.4-8.2); Troponin I < 0.015 ng/ml (0-0.045)
[2019-12-15 16:21] LABS: Mean Corpuscular Hemoglobin 30.9 pg (25-34); Mean Corpuscular Volume 96.5 fL (80-100); Mean Platelet Volume 8.6 fL (7.4-10.4); Platelet Count 382 K/uL (130-400); RDW Coefficient of Variation 16.6 % (11.5-14.5); RDW Standard Deviation 58.7 fL (36.4-46.3); Red Blood Count 2.59 M/uL (4.2-5.4); White Blood Count 32.83 K/uL (4.8-10.8)
[2019-12-15 16:22] LABS: Basophils # (auto) 0.02 K/uL (0-0.2); Basophils % (auto) 0.1 %; Echinocytes 1+; Eosinophils # (auto) 0.31 K/uL (0-0.5); Eosinophils % (auto) 0.9 %; Immature Granulocytes # (auto) 0.32 K/uL (0.00-0.02); Lymphocytes % (auto) 3.4 %; Monocytes # (auto) 1.62 K/uL (0.11-0.59); Monocytes % (auto) 4.9 %; Neutrophils # (auto) 29.46 K/uL (1.4-6.5); Neutrophils % (auto) 89.7 %
--- NOTE | 2019-12-15 16:39 | Electrocardiogram Report ---
Test Reason : Blood Pressure : / mmHG Vent. Rate : 060 BPM Atrial Rate : 060 BPM P-R Int : 220 ms QRS Dur : 100 ms QT Int : 440 ms P-R-T Axes : -17 -09 140 degrees QTc Int : 440 ms Sinus rhythm with 1st degree A-V block Low voltage QRS Incomplete right bundle branch block T wave abnormality, consider lateral ischemia Abnormal ECG When compared with ECG of 19-APR-2019 13:08, AL interval has increased T wave inversion now evident in Lateral leads Confirmed by Song Lock ([id number]) on 12/15/2019 4:39:10 PM Referred By: REFERRED SELF Confirmed By:Song Lock
[2019-12-15] MEDS ORDERED: ONDANSETRON INJ 2 MG/ML 2 ML VIAL IV PRN (20:35)
[2019-12-15] MEDS ORDERED: ONDANSETRON 4 MG OD TAB SL PRN (20:35)
[2019-12-15] MEDS: MoRPHine SULFATE 2 MG/ML CARP IV PRN (20:42)
[2019-12-15] MEDS: LORazepam 0.5 MG/1 ML VIAL IV PRN (20:43)
[2019-12-15] MEDS: ALBUMIN 25% 50 ML IV ONE ×2 (21:11→22:42)
[2019-12-15] MEDS: PIPERACILLIN/TAZOBACTAM 3.375 GM in DEXTROSE 5% 100 ML IV SCH (23:51)
[2019-12-16] MEDS: MoRPHine SULFATE 2 MG/ML CARP IV PRN ×3 (02:23→17:26)
[2019-12-16] MEDS: HEPARIN 100 UNIT/ML 5ML FLUSH FLUSH PRN (04:20)
[2019-12-16] MEDS: LORazepam 0.5 MG/1 ML VIAL IV PRN (06:04)
[2019-12-16] MEDS: PIPERACILLIN/TAZOBACTAM 3.375 GM in DEXTROSE 5% 100 ML IV SCH (12:50)
[2019-12-16] MEDS ORDERED: MoRPHine SULFATE 4 MG/ML 1 ML CARP\\VIAL IV STA (19:20)
[2019-12-16] MEDS ORDERED: STAT IV Infusion **Titration per Protocol PRN (19:55)
--- NOTE | 2019-12-16 20:45 | Hospitalist Progress Note ---
Date of Service delayed entry date of service noted below December 16, 2019 Assessment & Plan (1) Hospice care: (2) Uncontrolled pain: (3) Septic shock: (4) Acute renal failure: (5) Squamous cell carcinoma of vulva: (6) Open wound of vulva with complication: per admitting service notes: This is a 64-year-old female on hospice with PMH of uncontrolled pain 2/2 metastatic vulvar cancer status post chemoradiation on chronic methadone, CKD (recent baseline of 2.4 last month), chronic anemia (baseline hemoglobin of 7), CHF and other medical problems listed below who presents from home due to worsening chronic groin wound and uncontrolled pain. Home hospice unable to adequately care for patient at home due to large necrotic wound of groin with high output of fecal material as well as uncontrolled pain in setting of metastatic vulvar cancer. Attempted to place her in respite care/ SNF and were unsuccessful. Patient lives alone and family support is not local. Discussed with Dr. Yates, who is familiar with patient and arranged for [facility] hospice admission. Dr. Christy and I also discussed with patient's POA, brother Stewart Keys who lives in [place] ([phone]), who confirmed plan to avoid aggressive measures and understands patient's condition and agrees with comfort care. Septic shock and acute renal failure in setting of squamous cell carcinoma with necrotic vulvar wound BP 80s/40s, now 75/38 despite aggressive IV fluid resuscitation Patient and POA Stewart clearly not interested in aggressive measures such as IV pressors or resuscitation with CPR, shock or intubation Will continue Zosyn for antibiotic coverage along with IV fluids. Wound care nurse for wound in groin -- Morphine IV increased Morphine drip PRN ordered continue daily wound care RUE Weakness possible acute CVA no further work up per patient and family Hospice Care Uncontrolled pain Comfort care orders place with IV morphine, Ativan and Atropine discussed with Dr. Yates will need to transition to SNF with hospice DNR/DNI. Case management consult placed. ALICE William: [phone] discussed with patient's brother Stewart in detail and at length all questions anwered he is understanding, agreeable with plan of care Admission and Anticipated Discharge Date Admission Date: December 15, 2019 Subjective seen for vulvar ca, pain, etc. seen with patient's friend at bedside per friend patient noted to be hallucinating, confused earlier, seems to be improving right UE still weak patient weak but alert, oriented x 2 answers most questions appropriately has some pain on left hand no SOB, nausea, anxiety no other symptoms Review of Systems Review of Systems: All systems reviewed & are unremarkable except as noted in HPI & below Physical Exam Physical Exam: General- oriented x 2, not in distress, speaks in sentences with no effort or accessory muscle use weak Eyes- anicteric Neck- no JVD Lungs- clear breath sounds bilaterally, no rales/wheezes Heart- normal rate, regular rhythm; no murmurs Abdomen- normal bowel sounds, nondistended, soft, nontender Genitalia/Groin: patient declined exam due to discomfort Extremities- moderate LE edema, no calf tenderness Neuro- alert, oriented x 2; RUE 1/5 motor strength, BLE 1-2/5 motor strength; no other gross focal neurologic deficits Skin- warm & dry
[2019-12-16] MEDS: MoRPHine SULFATE 4 MG/ML 1 ML CARP\\VIAL IV PRN (21:35)
[2019-12-17] MEDS: PIPERACILLIN/TAZOBACTAM 3.375 GM in DEXTROSE 5% 100 ML IV SCH ×2 (00:02→13:29)
[2019-12-17] MEDS: MoRPHine SULFATE 4 MG/ML 1 ML CARP\\VIAL IV PRN ×5 (01:52→19:09)
[2019-12-17] MEDS: HEPARIN 100 UNIT/ML 5ML FLUSH FLUSH PRN (04:03)
[2019-12-17] MEDS: SODIUM CHLORIDE 0.9% 1000ML 1,000 ML IV SCH (08:40)
--- NOTE | 2019-12-17 20:12 | Hospitalist Progress Note ---
Date of Service December 17, 2019 Assessment & Plan (1) Hospice care: (2) Uncontrolled pain: (3) Septic shock: (4) Acute renal failure: (5) Squamous cell carcinoma of vulva: (6) Open wound of vulva with complication: per admitting service notes: This is a 64-year-old female on hospice with PMH of uncontrolled pain 2/2 metastatic vulvar cancer status post chemoradiation on chronic methadone, CKD (recent baseline of 2.4 last month), chronic anemia (baseline hemoglobin of 7), CHF and other medical problems listed below who presents from home due to worsening chronic groin wound and uncontrolled pain. Home hospice unable to adequately care for patient at home due to large necrotic wound of groin with high output of fecal material as well as uncontrolled pain in setting of metastatic vulvar cancer. Attempted to place her in respite care/ SNF and were unsuccessful. Patient lives alone and family support is not local. Discussed with Dr. Yates, who is familiar with patient and arranged for [facility] hospice admission. Dr. Christy and I also discussed with patient's POA, brother Stewart garcia who lives in [place] ([phone]), who confirmed plan to avoid aggressive measures and understands patient's condition and agrees with comfort care. Septic shock and acute renal failure in setting of squamous cell carcinoma with necrotic vulvar wound BP 80s/40s, now 75/38 despite aggressive IV fluid resuscitation Patient and ALICE William clearly not interested in aggressive measures such as IV pressors or resuscitation with CPR, shock or intubation Will continue Zosyn for antibiotic coverage along with IV fluids. Wound care nurse for wound in groin -- Morphine IV increased Morphine drip PRN ordered continue daily wound care pain well controlled patient comfortable overall RUE Weakness possible acute CVA no further work up per patient and family Hospice Care Uncontrolled pain Comfort care orders place with IV morphine, Ativan and Atropine discussed with Dr. Yates will need to transition to SNF with hospice DNR/DNI. Case management consult placed. ALICE William: [phone] Admission and Anticipated Discharge Date Admission Date: December 15, 2019 Subjective ff up for comfort measures, vulvar ca seen resting in bed, sleeping but easily awakened not in distress, oriented states she had dinner and some breakfast no nausea, SOB pain adequately controlled no other symptoms Review of Systems Review of Systems: All systems reviewed & are unremarkable except as noted in HPI & below Physical Exam Physical Exam: General- oriented x 2, not in distress, speaks in sentences with no effort or accessory muscle use Eyes- anicteric Neck- no JVD Lungs- clear breath sounds bilaterally no crackles Heart- normal rate, regular rhythm; no murmurs Abdomen- normal bowel sounds, nondistended, soft, nontender Groin/Genitalia- declined exam due to discomfort Extremities- grade 2 lower leg edema, no calf tenderness Neuro- alert, oriented x 2; same as yesterday Skin- warm & dry
[2019-12-18] MEDS: PIPERACILLIN/TAZOBACTAM 3.375 GM in DEXTROSE 5% 100 ML IV SCH (00:35)
[2019-12-18] MEDS: MoRPHine SULFATE 4 MG/ML 1 ML CARP\\VIAL IV PRN ×9 (00:40→20:11)
[2019-12-18] MEDS: SODIUM CHLORIDE 0.9% 1000ML 1,000 ML IV SCH ×2 (00:49→16:55)
[2019-12-18] MEDS: LORazepam 0.5 MG TAB PO PRN ×2 (05:16→14:12)
[2019-12-18] MEDS ORDERED: MICONAZOLE NITRATE POWDER 43 GM EXT PRN (05:23)
[2019-12-18] MEDS ORDERED: MoRPHine SULFATE 4 MG/ML 1 ML CARP\\VIAL ONE (05:29)
[2019-12-18] MEDS: MoRPHine SULF/NSS 250 MG/250 ML BTL IV PRN ×2 (16:54→23:54)
--- NOTE | 2019-12-18 18:06 | Hospitalist Progress Note ---
Date of Service December 18, 2019 Assessment & Plan (1) Hospice care: (2) Uncontrolled pain: (3) Septic shock: (4) Acute renal failure: (5) Squamous cell carcinoma of vulva: (6) Open wound of vulva with complication: per admitting service notes: This is a 64-year-old female on hospice with PMH of uncontrolled pain 2/2 metastatic vulvar cancer status post chemoradiation on chronic methadone, CKD (recent baseline of 2.4 last month), chronic anemia (baseline hemoglobin of 7), CHF and other medical problems listed below who presents from home due to worsening chronic groin wound and uncontrolled pain. Home hospice unable to adequately care for patient at home due to large necrotic wound of groin with high output of fecal material as well as uncontrolled pain in setting of metastatic vulvar cancer. Attempted to place her in respite care/ SNF and were unsuccessful. Patient lives alone and family support is not local. Discussed with Dr. Yates, who is familiar with patient and arranged for [facility] hospice admission. Dr. Christy and I also discussed with patient's POA, brother Stewart garcia who lives in [place] ([phone]), who confirmed plan to avoid aggressive measures and understands patient's condition and agrees with comfort care. Septic shock and acute renal failure in setting of squamous cell carcinoma with necrotic vulvar wound BP 80s/40s, now 75/38 despite aggressive IV fluid resuscitation Patient and ALICE William clearly not interested in aggressive measures such as IV pressors or resuscitation with CPR, shock or intubation Will continue Zosyn for antibiotic coverage along with IV fluids. Wound care nurse for wound in groin --Transition to morphine drip today for better pain control continue daily wound care truck service manager to determine [facility] facility with hospice services for patient RUE Weakness possible acute CVA no further work up per patient and family Hospice Care Uncontrolled pain Comfort care orders place with IV morphine, Ativan and Atropine discussed with Dr. Yates will need to transition to SNF with hospice DNR/DNI. Case management consult placed. ALICE William: [phone] Admission and Anticipated Discharge Date Admission Date: December 15, 2019 Subjective Follow-up for comfort measures, vulvar cancer Seen with friend visiting at bedside Awake, alert, oriented x3 Patient resting in bed, somewhat uncomfortable secondary to pain but not in distress Pain mostly in the affected areas of the cancer Denies shortness of breath, chest pain, abdominal pain, nausea vomiting Tolerating p.o. intake well, appetite is good No other issues Review of Systems Review of Systems: All systems reviewed & are unremarkable except as noted in HPI & below Physical Exam Physical Exam: General- oriented x 3, not in distress, speaks in sentences with no effort or accessory muscle use Eyes- anicteric Neck- no JVD Lungs- clear breath sounds bilaterally Heart- normal rate, regular rhythm; no murmurs Abdomen- normal bowel sounds, nondistended, soft, nontender Extremities-1 lower leg edema, no calf tenderness Groin/Genitalia-patient declined examination today secondary to discomfort Neuro- alert, oriented x 3; positive weakness of the right upper extremity, unchanged from previous day Skin- warm & dry
[2019-12-19] MEDS: MoRPHine SULF/NSS 250 MG/250 ML BTL IV PRN ×2 (01:09→19:17)
[2019-12-19] MEDS: SODIUM CHLORIDE 0.9% 1000ML 1,000 ML IV SCH (09:47)
[2019-12-19] MEDS: LORazepam 0.5 MG TAB PO PRN (12:19)
[2019-12-19] MEDS: MoRPHine SULFATE 4 MG/ML 1 ML CARP\\VIAL IV PRN ×2 (13:04→18:40)
--- NOTE | 2019-12-19 14:29 | Hospitalist Progress Note ---
Date of Service December 19, 2019 Assessment & Plan (1) Hospice care: (2) Uncontrolled pain: (3) Septic shock: (4) Acute renal failure: (5) Squamous cell carcinoma of vulva: (6) Open wound of vulva with complication: per admitting service notes: This is a 64-year-old female on hospice with PMH of uncontrolled pain 2/2 metastatic vulvar cancer status post chemoradiation on chronic methadone, CKD (recent baseline of 2.4 last month), chronic anemia (baseline hemoglobin of 7), CHF and other medical problems listed below who presents from home due to worsening chronic groin wound and uncontrolled pain. Home hospice unable to adequately care for patient at home due to large necrotic wound of groin with high output of fecal material as well as uncontrolled pain in setting of metastatic vulvar cancer. Attempted to place her in respite care/ SNF and were unsuccessful. Patient lives alone and family support is not local. Discussed with Dr. Yates, who is familiar with patient and arranged for [facility] hospice admission. Dr. Christy and I also discussed with patient's POA, brother Stewart garcia who lives in [place] ([phone]), who confirmed plan to avoid aggressive measures and understands patient's condition and agrees with comfort care. Septic shock and acute renal failure in setting of squamous cell carcinoma with necrotic vulvar wound BP 80s/40s, now 75/38 despite aggressive IV fluid resuscitation Patient and POJose Armando William clearly not interested in aggressive measures such as IV pressors or resuscitation with CPR, shock or intubation Will continue Zosyn for antibiotic coverage along with IV fluids. Wound care nurse for wound in groin --Continue morphine drip continue daily wound care Any other PRN meds for symptom management registration manager [facility] for patient RUE Weakness possible acute CVA no further work up per patient and family Hospice Care Uncontrolled pain Comfort care orders place with IV morphine, Ativan and Atropine discussed with Dr. Yates will need to transition to SNF with hospice DNR/DNI. Case management consult placed. ALICE William: [phone] Admission and Anticipated Discharge Date Admission Date: December 15, 2019 Subjective Follow-up for comfort measures status only Seen resting in bed, comfortable, not in distress, watching TV States pain scale is about 7 out of 10, morphine drip in progress Denies shortness of breath, chest pain, cough, abdominal pain Tolerating diet well Appetite is good No other symptoms or complaints Review of Systems Review of Systems: All systems reviewed & are unremarkable except as noted in HPI & below Physical Exam Physical Exam: General- oriented x 3, not in distress, speaks in sentences with no effort or accessory muscle use Eyes- anicteric Neck- no JVD Lungs- clear breath sounds, no crackles bilaterally Heart- normal rate, regular rhythm; no murmurs Abdomen- normal bowel sounds, nondistended, soft, nontender Extremities-1 lower leg edema, no erythema/warmth/tenderness Groin area-assessment difficult to perform as patient is having severe discomfort Mild swelling with erythematous regions noted in the inner thighs Unable to move legs laterally secondary to severe pain Neuro- alert, oriented x 3; no gross focal neurologic deficits Skin- warm & dry
--- NOTE | 2019-12-19 15:14 | Palliative Care Progress Note ---
Date of Service December 19, 2019 Assessment & Plan (1) Goals of care, counseling/discussion: Communication: This is a 64 year old female who is known to Dr. Yates as a palliative care outpatient patient. She has was admitted to the hospital on 12/15/19 for uncontrolled pain related to her metastatic vulvar cancer. She has been tolerating Methadone for OPT treatment. She has been admitted under [facility] services through [facility]osp[facility] as they were unable to manage the care of her large necrotic groin wound and intractable cancer pain. She has been receiving IV Morphine for pain management and is currently receiving 8mg/hour. Patient is a DNR.DNI. The patient states she is not fearful of and feels at peace with her life. I did offer supportive clergy services, but she declined. She did seem intermittently confused as she was saying everyone's name is Percy. She is more awake than she has been. I attribute this to the Morphine mechanism of action and pharmacokinetics. I suspect this clarity period will be short lived. The patients son, Percy, lives in [place] and is in agreement with comfort focus. Likely patient has hours to days of life and will pass away in the hospital. I did talk with the hospitalist regarding her care and progression. Titrate Morphine drip if patient has furrowed brow, moaning, breathing changes, or contact the palliative care team or Hospice with any specific questions regarding this patients pain and symptom control. Not a billable visit since she is [facility]. PG Care Time/CCT Total # of Minutes Spent Total Time Spent with Patient: Total time spent is greater than 50% in coordination of care (as documented) at patient's floor/unit and/or counseling patient: Coding Level of Care Code None Diagnoses Goals of care, counseling/discussion Z71.89
[2019-12-19] MEDS ORDERED: MAGNESIUM HYDROXIDE SUSP 30 ML UDC PO PRN (17:36)
[2019-12-19] MEDS: DOCUSATE SODIUM/SENNA 50/8.6MG TAB PO SCH (19:16)
[2019-12-20] MEDS: SODIUM CHLORIDE 0.9% 1000ML 1,000 ML IV SCH ×2 (02:28→18:52)
[2019-12-20] MEDS: MoRPHine SULFATE 4 MG/ML 1 ML CARP\\VIAL IV PRN ×3 (05:27→11:12)
[2019-12-20] MEDS: DOCUSATE SODIUM/SENNA 50/8.6MG TAB PO SCH (08:49)
[2019-12-20] MEDS: MoRPHine SULF/NSS 250 MG/250 ML BTL IV PRN (10:07)
[2019-12-20] MEDS: LORazepam 0.5 MG TAB PO PRN (11:17)
--- NOTE | 2019-12-20 12:22 | Palliative Care Progress Note ---
Date of Service December 20, 2019 Assessment & Plan (1) Goals of care, counseling/discussion: Communication: This is a 64 year old female who is known to Dr. Yates as a palliative care outpatient patient. She has was admitted to the hospital on 12/15/19 for uncontrolled pain related to her metastatic vulvar cancer. She has been tolerating Methadone for OPT treatment. She has been admitted under [facility] services through [facility] as they were unable to manage the care of her large necrotic groin wound and intractable cancer pain. She has been receiving IV Morphine for pain management and is currently receiving 8mg/hour. Patient is a DNR.DNI. The patient states she is not fearful of and feels at peace with her life. I did offer supportive clergy services, but she declined. She did seem intermittently confused as she was saying everyone's name is Percy. She is more awake than she has been. I attribute this to the Morphine mechanism of action and pharmacokinetics. I suspect this clarity period will be short lived. The patients son, Percy, lives in [place] and is in agreement with comfort focus. Likely patient has hours to days of life and will pass away in the hospital. I did talk with the hospitalist regarding her care and progression. Titrate Morphine drip if patient has furrowed brow, moaning, breathing changes, or contact the palliative care team or Hospice with any specific questions regarding this patients pain and symptom control. The patients Morphine gtt has been increased to 9mg/hour (216 mg of Morphine over a 24 hour period). She reports adequate pain control, however, is very painful for any attempt at assessing her [place]. There has been discussion about transferring her out of the hospital, either to home or a nursing facility. I think that care at home would be difficult as she does not have a lot of local support and increased pain needs. She would need 24/7 care at home. Additionally, she would need to be transitioned to a [employer] which she will eventually be unable to control herself. I have concerns about transporting her from a pain standpoint as well and think it would be too detrimental to her to make the transfer. I suggest she remains inpatient. [facility] myranda was visiting with her when I stopped in today. I think her emotional pain at this point is increasing as well. After speaking with the hospitalist, I suggest she be started on Ativan 0.5 mg IV TID to help with anxiety and comfort. Not a billable visit since she is [facility]. PG Care Time/CCT Total # of Minutes Spent Total Time Spent with Patient: Total time spent is greater than 50% in coordination of care (as documented) at patient's floor/unit and/or counseling patient: Coding Level of Care Code None Diagnoses Goals of care, counseling/discussion Z71.89
[2019-12-20] MEDS ORDERED: CALCIUM CARBONATE 500 MG CHEWABLE TAB PO PRN (17:28)
--- NOTE | 2019-12-20 18:18 | Hospitalist Progress Note ---
Date of Service December 20, 2019 Assessment & Plan (1) Hospice care: (2) Uncontrolled pain: (3) Septic shock: (4) Acute renal failure: (5) Squamous cell carcinoma of vulva: (6) Open wound of vulva with complication: per admitting service notes: This is a 64-year-old female on hospice with PMH of uncontrolled pain 2/2 metastatic vulvar cancer status post chemoradiation on chronic methadone, CKD (recent baseline of 2.4 last month), chronic anemia (baseline hemoglobin of 7), CHF and other medical problems listed below who presents from home due to worsening chronic groin wound and uncontrolled pain. Home hospice unable to adequately care for patient at home due to large necrotic wound of groin with high output of fecal material as well as uncontrolled pain in setting of metastatic vulvar cancer. Attempted to place her in respite care/ SNF and were unsuccessful. Patient lives alone and family support is not local. Discussed with Dr. Yates, who is familiar with patient and arranged for [facility] hospice admission. Dr. Christy and I also discussed with patient's POA, brother Stewart garcia who lives in [place] ([phone]), who confirmed plan to avoid aggressive measures and understands patient's condition and agrees with comfort care. Septic shock and acute renal failure in setting of squamous cell carcinoma with necrotic vulvar wound BP 80s/40s, now 75/38 despite aggressive IV fluid resuscitation Patient and POA Stewart clearly not interested in aggressive measures such as IV pressors or resuscitation with CPR, shock or intubation Will continue Zosyn for antibiotic coverage along with IV fluids. Wound care nurse for wound in groin --Remains awake, alert, oriented x2, with good appetite and tolerating p.o. diet well patient having significant pain with daily a.m. care by waitstaff captain Discussed with RN, patient to be given premedication with morphine 6 mg IV and Ativan 0.5 mg IV prior to being moved in the bed Continue morphine drip with PRN morphine IV for breakthrough pain will order Ativan 0.5 mg IV 3 times daily scheduled for anxiety Discussed with palliative care service Currently discussion with patient between returning home with hospice versus senior living with hospice in progress Returning home with hospice may not be the most ideal scenario for the patient secondary to necessity for higher level of care, increased pain guarding morphine drip, Severe pain with activities of daily living including cleaning/washing RUE Weakness possible acute CVA no further work up per patient and family Hospice Care Uncontrolled pain Comfort care orders placed with IV morphine, Ativan and Atropine discussed with palliative care service will need to transition to SNF with hospice DNR/DNI. Case management consult placed. ALICE William-brother: [phone] Admission and Anticipated Discharge Date Admission Date: December 15, 2019 Subjective Follow-up for comfort measures status only, extensive necrotic wounds secondary to vulvar cancer Seen resting in bed, not in respiratory distress Oriented x2 Answers most questions appropriately Denies shortness of breath, chest pain abdominal pain, nausea vomiting Tolerating diet well States pain is well controlled with the morphine drip Only 1-2 out of 10 Patient having severe pain when morning care performed by waitstaff captain No other symptoms Review of Systems Review of Systems: All systems reviewed & are unremarkable except as noted in HPI & below Physical Exam Physical Exam: General- oriented x 2, not in distress, speaks in sentences with no effort or accessory muscle use Eyes- anicteric Neck- no JVD Lungs- clear breath sounds, no crackles, no wheezing bilaterally Heart- normal rate, regular rhythm; no murmurs Abdomen- normal bowel sounds, nondistended, soft, nontender Inguinal area-difficult to assess secondary to discomfort, areas of necrotic tissue is noted, no active discharge or bleeding Buttock area-erythematous area likely pressure ulcer noted Extremities-mild lower leg edema, no calf tenderness Neuro- alert, oriented x 2; right sided weakness Skin- warm & dry
[2019-12-20] MEDS: LORazepam 0.5 MG/1 ML VIAL IV SCH (20:30)
[2019-12-20] MEDS ORDERED: PANTOprazole 40 MG TAB PO STA (20:41)
[2019-12-21] MEDS ORDERED: POLYETHYLENE (MIRALAX) 17 GM PACK PO PRN (07:25)
--- NOTE | 2019-12-21 08:44 | Hospitalist Progress Note ---
Date of Service December 21, 2019 Assessment & Plan (1) Hospice care: (2) Uncontrolled pain: (3) Squamous cell carcinoma of vulva: (4) Open wound of vulva with complication: -as per history and physical "This is a 64-year-old female on hospice with PMH of uncontrolled pain 2/2 metastatic vulvar cancer status post chemoradiation on chronic methadone, CKD (recent baseline of 2.4 last month), chronic anemia (baseline hemoglobin of 7), CHF and other medical problems listed below who presents from home due to worsening chronic groin wound and uncontrolled pain. Home hospice unable to adequately care for patient at home due to large necrotic wound of groin with high output of fecal material as well as uncontrolled pain in setting of metastatic vulvar cancer. Attempted to place her in respite care/ SNF and were unsuccessful. Patient lives alone and family support is not local. Discussed with Dr. Yates, who is familiar with patient and arranged for [facility] hospice admission." She has been admitted under [facility] services through [facility] as they were unable to manage the care of her large necrotic groin wound and intractable cancer pain. -on this admission, palliative care following the patient. Patient on IV morphine drip for the pain control (12/20/2019 palliative care notes documents Morphine gtt has been increased to 9mg/hour so that there is 216 mg of Morphine over a 24 hour period), and Ativan 0.5 mg IV TID to help with anxiety and comfort. patient's preference is to go home with hospice but palliative care services are concerned about pain control at home and pain during transport Right upper extremity weakness, noted on this admission -no further work up per patient and family (5) Acute renal failure: (6) Septic shock: Septic shock and acute renal failure in setting of squamous cell carcinoma with necrotic vulvar wound on admission Hypomagnesemia on admission -admission BP 80s/40s; admission WBC 32,000; admission creatinine 4.35, admission serum magnesium 1.5, admission serum potassium 6.1 on 12/15/2019. no cultures were sent and no labs were drawn since because of patient and POA desire for non-aggressive measures and comfort care. -Zosyn was initially given and also IV fluids -give Lasix on 40 mg IV x 1 on 12/21/2019 for the bilateral lower extremity edema, give magnesium supplements DNR/DNI. patient's POA, brother Stewart Keys who lives in [place] ([phone]), who confirmed plan to avoid aggressive measures and understands patient's condition and agrees with comfort care on this admission Admission and Anticipated Discharge Date Admission Date: December 15, 2019 Subjective Patient seen and examined while eating breakfast. She denies being in acute distress from pain. There is IV morphine drip running. She reports sensitivity to touch of the abdomen and she showed the groin area to medical doctor. no vomiting. she does not recall bowel movements but notes that they have been present within this weak. She denies dysuria with urination. no chest pain. no shortness of breath. on room air. no dizziness. moves upper extremities. lower extremity leg raises bilaterally are relatively weak. bilateral leg edema present Review of Systems Review of Systems: All systems reviewed & are unremarkable except as noted in Subjective Physical Exam Constitutional: cooperative and comfortable Eyes: PERRL, conjunctivae normal, anicteric sclerae EOM intact bilaterally ENMT: external ear and nose normal, oropharynx normal Neck: trachea midline, no thyromegaly normal visual inspection Respiratory: normal respiratory effort, lungs clear to auscultation Cardiovascular: Rate/Rhythm: + bradycardic Gastrointestinal (Abdomen): Inspection/Auscultation: abdomen normal to inspection Percussion/Palpation: + abdomen tender Musculoskeletal: Head/Neck/Chest: normocephalic and head atraumatic Extremities: + lower leg abnormality (bilateral lower extremity edema) Neurologic: PERRL, EOMI, accommodation nl, no face palsy, no dysarthria Psychiatric: A+Ox3, euthymic affect Genitourinary: groin area skin irritation/wounds
[2019-12-21] MEDS ORDERED: FUROSEMIDE 40 MG in SYRINGE 0 ML IV ONE (09:00)
[2019-12-21] MEDS: MAGNESIUM SULFATE / D5W 1 GM/100 ML BAG IV SCH ×3 (09:46→13:12)
[2019-12-21] MEDS: DOCUSATE SODIUM/SENNA 50/8.6MG TAB PO SCH ×2 (09:46→20:18)
[2019-12-21] MEDS: LORazepam 0.5 MG/1 ML VIAL IV SCH ×3 (10:27→20:18)
[2019-12-21] MEDS: MAGNESIUM OXIDE 400 MG TAB PO SCH (10:57)
[2019-12-21] MEDS: MoRPHine SULFATE 4 MG/ML 1 ML CARP\\VIAL IV PRN (13:12)
[2019-12-21] MEDS: MoRPHine SULF/NSS 250 MG/250 ML BTL IV PRN (13:57)
[2019-12-22] MEDS: ATROPINE SULFATE 1% OP SOLN 2 ML BTL SL PRN ×8 (05:35→23:29)
[2019-12-22] MEDS: LORazepam 0.5 MG/1 ML VIAL IV PRN ×2 (05:59→20:49)
[2019-12-22] MEDS ORDERED: SCOPOLAMINE 1.5 MG TDSY TD ONE (08:09)
--- NOTE | 2019-12-22 08:15 | Hospitalist Progress Note ---
Date of Service December 22, 2019 Assessment & Plan (1) Hospice care: (2) Uncontrolled pain: (3) Squamous cell carcinoma of vulva: (4) Open wound of vulva with complication: -as per history and physical "This is a 64-year-old female on hospice with PMH of uncontrolled pain 2/2 metastatic vulvar cancer status post chemoradiation on chronic methadone, CKD (recent baseline of 2.4 last month), chronic anemia (baseline hemoglobin of 7), CHF and other medical problems listed below who presents from home due to worsening chronic groin wound and uncontrolled pain. Home hospice unable to adequately care for patient at home due to large necrotic wound of groin with high output of fecal material as well as uncontrolled pain in setting of metastatic vulvar cancer. Attempted to place her in respite care/ SNF and were unsuccessful. Patient lives alone and family support is not local. Discussed with Dr. Yates, who is familiar with patient and arranged for [facility] hospice admission." She has been admitted under [facility] services through [facility] H[facility] as they were unable to manage the care of her large necrotic groin wound and intractable cancer pain. -on this admission, palliative care following the patient. Patient on IV morphine drip for the pain control (12/20/2019 palliative care notes documents Morphine gtt has been increased to 9mg/hour so that there is 216 mg of Morphine over a 24 hour period), and Ativan 0.5 mg IV TID to help with anxiety and comfort. patient's preference is to go home with hospice but palliative care services are concerned about pain control at home and pain during transport -12/21/2019: caser up discussed with patient of facilities that may have hospice beds in near future -12/22/2019 updates: Nurse reports to medical doctor in AM of concerns patient having gurgling noises from the throat/mouth. Patient reports this started after supper on 12/21/2019. Nurse plans to help suction the patient, Medical doctor order scopolamine patch. Patient declined IV Lasix. Patient declined titrating down the IV morphine. Patient declines for hospital doctor to notify her next of kin of the symptoms and recent change in her condition. Right upper extremity weakness, noted on this admission -no further work up per patient and family (5) Acute renal failure: (6) Septic shock: Septic shock and acute renal failure in setting of squamous cell carcinoma with necrotic vulvar wound on admission Hypomagnesemia on admission -admission BP 80s/40s; admission WBC 32,000; admission creatinine 4.35, admission serum magnesium 1.5, admission serum potassium 6.1 on 12/15/2019. no cultures were sent and no labs were drawn since because of patient and POA desire for non-aggressive measures and comfort care. -Zosyn was initially given and also IV fluids -give Lasix on 40 mg IV x 1 on 12/21/2019 for the bilateral lower extremity edema, give magnesium supplements DNR/DNI. patient's POA, brother Stewart Keys who lives in [place] ([phone]), who confirmed plan to avoid aggressive measures and understands patient's condition and agrees with comfort care on this admission Admission and Anticipated Discharge Date Admission Date: December 15, 2019 Subjective Nurse reports to medical doctor in AM of concerns patient having gurgling noises from the throat/mouth. Patient reports this started after supper on 12/21/2019. Nurse plans to help suction the patient, Medical doctor order scopolamine patch. Patient declined IV Lasix. Patient declined titrating down the IV morphine. Patient declines for hospital doctor to notify her next of kin of the symptoms and recent change in her condition. patient denies acute pain Review of Systems Review of Systems: All systems reviewed & are unremarkable except as noted in Subjective Physical Exam Constitutional: cooperative and comfortable Eyes: PERRL, conjunctivae normal, anicteric sclerae EOM intact bilaterally ENMT: external ear and nose normal, oropharynx normal Neck: trachea midline, no thyromegaly gurgling sounds from throat Respiratory: normal respiratory effort Cardiovascular: Rate/Rhythm: + bradycardic Gastrointestinal (Abdomen): Inspection/Auscultation: abdomen normal to inspection Percussion/Palpation: + abdomen tender Musculoskeletal: Head/Neck/Chest: normocephalic and head atraumatic Extremities: + lower leg abnormality (bilateral lower extremity edema) Neurologic: PERRL, EOMI, accommodation nl, no face palsy, no dysarthria Psychiatric: A+Ox3, euthymic affect
[2019-12-22] MEDS: DOCUSATE SODIUM/SENNA 50/8.6MG TAB PO SCH ×2 (11:50→20:29)
[2019-12-22] MEDS: MAGNESIUM OXIDE 400 MG TAB PO SCH (11:50)
[2019-12-22] MEDS: LORazepam 0.5 MG/1 ML VIAL IV SCH ×3 (13:48→20:29)
[2019-12-22] MEDS: MoRPHine SULF/NSS 250 MG/250 ML BTL IV PRN (14:28)
[2019-12-22] MEDS: CHECK SCOPOLAMINE PATCH PLACEMENT SCH ×2 (15:51→23:31)
[2019-12-23] MEDS: ATROPINE SULFATE 1% OP SOLN 2 ML BTL SL PRN ×13 (00:27→23:53)
[2019-12-23] MEDS: CHECK SCOPOLAMINE PATCH PLACEMENT SCH ×3 (07:51→23:53)
[2019-12-23] MEDS: MAGNESIUM OXIDE 400 MG TAB PO SCH (09:15)
[2019-12-23] MEDS: DOCUSATE SODIUM/SENNA 50/8.6MG TAB PO SCH ×2 (09:15→20:23)
[2019-12-23] MEDS: LORazepam 0.5 MG/1 ML VIAL IV SCH ×3 (09:15→20:09)
[2019-12-23] MEDS: MoRPHine SULF/NSS 250 MG/250 ML BTL IV PRN ×2 (09:16→23:51)
--- NOTE | 2019-12-23 13:13 | Hospitalist Progress Note ---
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 Home hospice unable to adequately care for patient at home due to large necrotic wound of groin with high output of fecal material as well as uncontrolled pain in setting of metastatic vulvar cancer. Attempted to place her in respite care/ SNF and were unsuccessful. Patient lives alone and family support is not local. Discussed with Dr. Yates, who is familiar with patient and arranged for [facility] hospice admission." She has been admitted under [facility] services through [facility] as they were unable to manage the care of her large necrotic groin wound and intractable cancer pain. -on this admission, palliative care following the patient. Patient on IV morphine drip for the pain control (12/20/2019 palliative care notes documents Morphine gtt has been increased to 9mg/hour so that there is 216 mg of Morphine over a 24 hour period), and Ativan 0.5 mg IV TID to help with anxiety and comfort. patient's preference is to go home with hospice but palliative care services are concerned about pain control at home and pain during transport -12/21/2019: therapeutic case manager discussed with patient of facilities that may have hospice beds in near future -12/22/2019 updates: Nurse reports to medical doctor in AM of concerns patient having gurgling noises from the throat/mouth. Patient reports this started after supper on 12/21/2019. Nurse plans to help suction the patient, Medical doctor order scopolamine patch. Patient declined IV Lasix. Patient declined titrating down the IV morphine. -12/23/2019:Patient is sedated and her pupils are dilated. She is on morphine drip. Her nephew at bedside and patient's brother Stewart on the computer screen. Family wishes for patient to continue the morphine drip to allow her to pass away comfortably Right upper extremity weakness, noted on this admission -no further work up per patient and family (5) Acute renal failure: (6) Septic shock: Septic shock and acute renal failure in setting of squamous cell carcinoma with necrotic vulvar wound on admission Hypomagnesemia on admission -admission BP 80s/40s; admission WBC 32,000; admission creatinine 4.35, admission serum magnesium 1.5, admission serum potassium 6.1 on 12/15/2019. no cultures were sent and no labs were drawn since because of patient and POA desire for non-aggressive measures and comfort care. -Zosyn was initially given and also IV fluids -was given Lasix on 40 mg IV x 1 on 12/21/2019 for the bilateral lower extremity edema and magnesium supplements DNR/DNI. patient's POA, brother Stewart Keys who lives in [place] ([phone]), who confirmed plan to avoid aggressive measures and understands patient's condition and agrees with comfort care on this admission. he reports that when patient dies, hospital should help with coordinating the [facility] in [place] ([phone]) Admission and Anticipated Discharge Date Admission Date: December 15, 2019 Subjective Patient is sedated and her pupils are dilated. She is on morphine drip. Her nephew at bedside and patient's brother Stewart on the computer screen. Family wishes for patient to continue the morphine drip to allow her to pass away comfortably somewhat labored breathing. does not respond to tactile or verbal stimuli. audible heart rates Review of Systems Review of Systems: All systems reviewed & are unremarkable except as noted in Subjective Physical Exam Constitutional: cooperative and comfortable Eyes: patient is sedated and pupils are dilated ENMT: external ear and nose normal, oropharynx normal Neck: trachea midline, no thyromegaly normal visual inspection Respiratory: + labored breathing Cardiovascular: Rate/Rhythm: + bradycardic Gastrointestinal (Abdomen): Inspection/Auscultation: abdomen normal to inspection Musculoskeletal: Head/Neck/Chest: normocephalic and head atraumatic Extremities: + lower leg abnormality (bilateral lower extremity edema) Neurologic: does not respond to tactile or verbal stimuli, sedated/obtunded
--- NOTE | 2019-12-23 13:32 | Palliative Care Progress Note ---
Date of Service December 23, 2019 Assessment & Plan (1) Goals of care, counseling/discussion: Communication: The patient has shown decline over the past 48 hours. She appears to have aspirated and now is mostly unresponsive. She does, intermittently, open her eyes to voice, but otherwise not responsive. She does have a friend visiting at her bedside. No questions asked at this time. Currently, her Morphine drip is infusing at 15mg/hour. She also has a Scopalamine patch and Atropine gtts too for secretions. At this time, the patient likely will pass within hours, and is not stable for hospital discharge. [facility] Hospice following patient as well. I did talk with the hospitalist regarding her care and progression. Titrate Morphine drip if patient has furrowed brow, moaning, breathing changes, or contact the palliative care team or Hospice with any specific questions regarding this patients pain and symptom control. Not a billable visit since she is GIP. PG Care Time/CCT Total # of Minutes Spent Total Time Spent with Patient: Total time spent is greater than 50% in coordination of care (as documented) at patient's floor/unit and/or counseling patient: Coding Level of Care Code None Diagnoses Goals of care, counseling/discussion Z71.89
[2019-12-24] MEDS: CHECK SCOPOLAMINE PATCH PLACEMENT SCH ×2 (07:33→16:13)
[2019-12-24] MEDS: ATROPINE SULFATE 1% OP SOLN 2 ML BTL SL PRN ×4 (07:34→20:54)
--- NOTE | 2019-12-24 07:43 | Hospitalist Progress Note ---
Date of Service December 24, 2019 Assessment & Plan (1) Hospice care: Hospice care/Comfort Care measures Only (2) Uncontrolled pain: (3) Squamous cell carcinoma of vulva: (4) Open wound of vulva with complication: -as per history and physical "This is a 64-year-old female on hospice with PMH of uncontrolled pain 2/2 metastatic vulvar cancer status post chemoradiation on chronic methadone, CKD (recent baseline of 2.4 last month), chronic anemia (b aseline hemoglobin of 7), CHF and other medical problems listed below who presents from home due to worsening chronic groin wound and uncontrolled pain. Home hospice unable to adequately care for patient at home due to large necrotic wound of groin with high output of fecal material as well as uncontrolled pain in setting of metastatic vulvar cancer. Attempted to place her in respite care/ SNF and were unsuccessful. Patient lives alone and family support is not local. Discussed with Dr. Yates, who is familiar with patient and arranged for [facility] hospice admission." She has been admitted under [facility] services through [facility] as they were unable to manage the care of her large necrotic groin wound and intractable cancer pain. -on this admission, palliative care following the patient. Patient on IV morphine drip for the pain control (12/20/2019 palliative care notes documents Morphine gtt has been increased to 9mg/hour so that there is 216 mg of Morphine over a 24 hour period), and Ativan 0.5 mg IV TID to help with anxiety and comfort. patient's preference is to go home with hospice but palliative care services are concerned about pain control at home and pain during transport -12/21/2019: pillowcase cutter discussed with patient of facilities that may have hospice beds in near future -12/22/2019 updates: Nurse reports to medical doctor in AM of concerns patient having gurgling noises from the throat/mouth. Patient reports this started after supper on 12/21/2019. Nurse plans to help suction the patient, Medical doctor order scopolamine patch. Patient declined IV Lasix. Patient declined titrating down the IV morphine. -12/23/2019:Patient is sedated and her pupils are dilated. She is on morphine drip. Her nephew at bedside and patient's brother Stewart on the computer screen. Family wishes for patient to continue the morphine drip to allow her to pass away comfortably -12/24/2019: Patient seen this AM with nurse. Nurse reports patient opening eyes more. Patient is lethargic and mumbles in response to questions before going back to sleep Right upper extremity weakness, noted on this admission -no further work up per patient and family (5) Acute renal failure: (6) Septic shock: Septic shock and acute renal failure in setting of squamous cell carcinoma with necrotic vulvar wound on admission Hypomagnesemia on admission -admission BP 80s/40s; admission WBC 32,000; admission creatinine 4.35, admission serum magnesium 1.5, admission serum potassium 6.1 on 12/15/2019. no cultures were sent and no labs were drawn since because of patient and POA desire for non-aggressive measures and comfort care. -Zosyn was initially given and also IV fluids -was given Lasix on 40 mg IV x 1 on 12/21/2019 for the bilateral lower extremity edema and magnesium supplements DNR/DNI. patient's POA, brother Stewart Keys who lives in [place] ([phone]), who confirmed plan to avoid aggressive measures and understands patient's condition and agrees with comfort care on this admission. he reports that when patient dies, hospital should help with coordinating the [facility] home in [place] ([phone]) Admission and Anticipated Discharge Date Admission Date: December 15, 2019 Subjective Patient seen this AM with nurse. Nurse reports patient opening eyes more. Patient is lethargic and mumbles in response to questions before going back to sleep. Review of Systems Review of Systems: All systems reviewed & are unremarkable except as noted in Subjective Physical Exam Constitutional: cooperative and comfortable Eyes: EOM intact bilaterally ENMT: external ear and nose normal, oropharynx normal Neck: trachea midline, no thyromegaly normal visual inspection Respiratory: normal respiratory effort, lungs clear to auscultation + labored breathing Cardiovascular: Rate/Rhythm: + bradycardic Gastrointestinal (Abdomen): Inspection/Auscultation: abdomen normal to i nspection Musculoskeletal: Head/Neck/Chest: normocephalic and head atraumatic Extremities: + lower leg abnormality (bilateral lower extremity edema) Neurologic: PERRL, EOMI, accommodation nl, no face palsy, no dysarthria Psychiatric: A+Ox3, euthymic affect
[2019-12-24] MEDS: DOCUSATE SODIUM/SENNA 50/8.6MG TAB PO SCH ×2 (09:32→20:54)
[2019-12-24] MEDS: MAGNESIUM OXIDE 400 MG TAB PO SCH (09:32)
[2019-12-24] MEDS: LORazepam 0.5 MG/1 ML VIAL IV SCH ×3 (10:38→20:54)
[2019-12-24] MEDS: MoRPHine SULFATE 10 MG/ML CARP/VIAL IV PRN (10:56)
[2019-12-24] MEDS: MoRPHine SULF/NSS 250 MG/250 ML BTL IV PRN (16:26)
[2019-12-25] MEDS: CHECK SCOPOLAMINE PATCH PLACEMENT SCH ×3 (00:29→15:35)
--- NOTE | 2019-12-25 08:23 | Hospitalist Progress Note ---
Date of Service December 25, 2019 Assessment & Plan (1) Hospice care: Hospice care/Comfort Care measures Only (2) Uncontrolled pain: (3) Squamous cell carcinoma of vulva: (4) Open wound of vulva with complication: -as per history and physical "This is a 64-year-old female on hospice with PMH of uncontrolled pain 2/2 metastatic vulvar cancer status post chemoradiation on chronic methadone, CKD (recent baseline of 2.4 last month), chronic anemia (b aseline hemoglobin of 7), CHF and other medical problems listed below who presents from home due to worsening chronic groin wound and uncontrolled pain. Home hospice unable to adequately care for patient at home due to large necrotic wound of groin with high output of fecal material as well as uncontrolled pain in setting of metastatic vulvar cancer. Attempted to place her in respite care/ SNF and were unsuccessful. Patient lives alone and family support is not local. Discussed with Dr. Yates, who is familiar with patient and arranged for [facility] hospice admission." She has been admitted under [facility] services through [facility] as they were unable to manage the care of her large necrotic groin wound and intractable cancer pain. -on this admission, palliative care following the patient. Patient on IV morphine drip for the pain control (12/20/2019 palliative care notes documents Morphine gtt has been increased to 9mg/hour so that there is 216 mg of Morphine over a 24 hour period), and Ativan 0.5 mg IV TID to help with anxiety and comfort. patient's preference is to go home with hospice but palliative care services are concerned about pain control at home and pain during transport -12/21/2019: business case analyst discussed with patient of facilities that may have hospice beds in near future -12/22/2019 updates: Nurse reports to medical doctor in AM of concerns patient having gurgling noises from the throat/mouth. Patient reports this started after supper on 12/21/2019. Nurse plans to help suction the patient, Medical doctor order scopolamine patch. Patient declined IV Lasix. Patient declined titrating down the IV morphine. -12/23/2019:Patient is sedated and her pupils are dilated. She is on morphine drip. Her nephew at bedside and patient's brother Stewart on the computer screen. Family wishes for patient to continue the morphine drip to allow her to pass away comfortably -12/24/2019: Patient seen this AM with nurse. Nurse reports patient opening eyes more. Patient is lethargic and mumbles in response to questions before going back to sleep -12/25/2019: Patient seen this AM. She is generally lethargic. She does open her eyes but no more than than 10 seconds before returning to sleep. She continues to have some gurgling sounds from her throat/airway and her breathing somewhat labored while on the morphine drip. Right upper extremity weakness, noted on this admission -no further work up per patient and family (5) Acute renal failure: (6) Septic shock: Septic shock and acute renal failure in setting of squamous cell carcinoma with necrotic vulvar wound on admission Hypomagnesemia on admission -admission BP 80s/40s; admission WBC 32,000; admission creatinine 4.35, admission serum magnesium 1.5, admission serum potassium 6.1 on 12/15/2019. no cultures were sent and no labs were drawn since because of patient and POA desire for non-aggressive measures and comfort care. -Zosyn was initially given and also IV fluids -was given Lasix on 40 mg IV x 1 on 12/21/2019 for the bilateral lower extremity edema and magnesium supplements DNR/DNI. patient's POA, brother Stewart Keys who lives in [place] ([phone]), who confirmed plan to avoid aggressive measures and understands patient's condition and agrees with comfort care on this admission. he reports that when patient dies, hospital should help with coordinating the [facility] home in [place] ([phone]) Admission and Anticipated Discharge Date Admission Date: December 15, 2019 Subjective Patient seen this AM. She is generally lethargic. She does open her eyes but no more than than 10 seconds before returning to sleep. She continues to have some gurgling sounds from her throat/airway and her breathing somewhat labored while on the morphine drip. Review of Systems Review of Systems: All systems reviewed & are unremarkable except as noted in Subjective Physical Exam Constitutional: cooperative and comfortable Eyes: EOM intact bilaterally ENMT: external ear and nose normal, oropharynx normal Neck: trachea midline, no thyromegaly normal visual inspection Respiratory: normal respiratory effort, lungs clear to auscultation + labored breathing Cardiovascular: Rate/Rhythm: regular rate Gastrointestinal (Abdomen): Inspection/Auscultation: abdomen normal to inspection Musculoskeletal: Head/Neck/Chest: normocephalic and head atraumatic Extremities: + lower leg abnormality (bilateral lower extremity edema) Neurologic: PERRL, EOMI, accommodation nl, no face palsy, no dysarthria Psychiatric: A+Ox3, euthymic affect
[2019-12-25] MEDS: MoRPHine SULF/NSS 250 MG/250 ML BTL IV PRN ×2 (09:10→10:18)
[2019-12-25] MEDS: MoRPHine SULFATE 10 MG/ML CARP/VIAL IV PRN (09:10)
[2019-12-25] MEDS: LORazepam 0.5 MG/1 ML VIAL IV SCH ×2 (09:11→14:17)
[2019-12-25] MEDS: MAGNESIUM OXIDE 400 MG TAB PO SCH (09:12)
[2019-12-25] MEDS: DOCUSATE SODIUM/SENNA 50/8.6MG TAB PO SCH ×2 (09:13→22:00)
[2019-12-25] MEDS ORDERED: SCOPOLAMINE 1.5 MG TDSY TD SCH (09:15)
[2019-12-25] MEDS: SCOPOLAMINE 1.5 MG TDSY TD SCH (09:56)
[2019-12-25] MEDS ORDERED: MoRPHine SULFATE 10 MG/ML CARP/VIAL ONE (10:34)
[2019-12-25] MEDS: ATROPINE SULFATE 1% OP SOLN 2 ML BTL SL PRN ×2 (15:32→17:00)
[2019-12-25] MEDS: MoRPHine SULFATE 4 MG/ML 1 ML CARP\\VIAL IV PRN (15:33)
[2019-12-25] MEDS: ALBUT/IPRATROP 3MG/0.5MG NEB 3 ML VIAL NEB SCH ×2 (17:16→19:38)
[2019-12-25] MEDS ORDERED: GLYCOPYRROLATE 0.2 MG/ML VIAL IV ONE (17:30)
[2019-12-26] MEDS: CHECK SCOPOLAMINE PATCH PLACEMENT SCH ×4 (01:07→23:50)
[2019-12-26] MEDS: LORazepam 0.5 MG/1 ML VIAL IV SCH ×4 (01:07→20:57)
[2019-12-26] MEDS: MoRPHine SULFATE 4 MG/ML 1 ML CARP\\VIAL IV PRN ×3 (01:08→20:42)
[2019-12-26] MEDS: MoRPHine SULF/NSS 250 MG/250 ML BTL IV PRN ×2 (01:47→16:16)
[2019-12-26] MEDS: GLYCOPYRROLATE 0.2 MG/ML VIAL IV PRN ×3 (01:50→18:49)
[2019-12-26] MEDS: ATROPINE SULFATE 1% OP SOLN 2 ML BTL SL PRN ×12 (01:57→23:50)
[2019-12-26] MEDS: LORazepam 0.5 MG/1 ML VIAL IV PRN ×2 (06:09→20:42)
[2019-12-26] MEDS: ALBUT/IPRATROP 3MG/0.5MG NEB 3 ML VIAL NEB SCH ×4 (07:01→19:25)
--- NOTE | 2019-12-26 07:49 | Hospitalist Progress Note ---
Date of Service December 26, 2019 Assessment & Plan (1) Hospice care: Hospice care/Comfort Care measures Only (2) Uncontrolled pain: (3) Squamous cell carcinoma of vulva: (4) Open wound of vulva with complication: -as per history and physical "This is a 64-year-old female on hospice with PMH of uncontrolled pain 2/2 metastatic vulvar cancer status post chemoradiation on chronic methadone, CKD (recent baseline of 2.4 last month), chronic anemia (baseline hemoglobin of 7), CHF and other medical problems listed below who presents from home due to worsening chronic groin wound and uncontrolled pain. Home hospice unable to adequately care for patient at home due to large necrotic wound of groin with high output of fecal material as well as uncontrolled pain in setting of metastatic vulvar cancer. Attempted to place her in respite care/ SNF and were unsuccessful. Patient lives alone and family support is not local. Discussed with Dr. Yates, who is familiar with patient and arranged for [facility] hospice admission." She has been admitted under [facility] services through [facility] as they were unable to manage the care of her large necrotic groin wound and intractable cancer pain. -on this admission, palliative care following the patient. Patient on IV morphine drip for the pain control (12/20/2019 palliative care notes documents Morphine gtt has been increased to 9mg/hour so that there is 216 mg of Morphine over a 24 hour period), and Ativan 0.5 mg IV TID to help with anxiety and comfort. patient's preference is to go home with hospice but palliative care services are concerned about pain control at home and pain during transport -12/21/2019: vocational case manager discussed with patient of facilities that may have hospice beds in near future -12/22/2019 updates: Nurse reports to medical doctor in AM of concerns patient having gurgling noises from the throat/mouth. Patient reports this started after supper on 12/21/2019. Nurse plans to help suction the patient, Medical doctor order scopolamine patch. Patient declined IV Lasix. Patient declined titrating down the IV morphine. -12/23/2019:Patient is sedated and her pupils are dilated. She is on morphine drip. Her nephew at bedside and patient's brother Stewart on the computer screen. Family wishes for patient to continue the morphine drip to allow her to pass away comfortably -12/24/2019: Patient seen this AM with nurse. Nurse reports patient opening eyes more. Patient is lethargic and mumbles in response to questions before going back to sleep -12/25/2019: Patient seen this AM. She is generally lethargic. She does open her eyes but no more than than 10 seconds before returning to sleep. She continues to have some gurgling sounds from her throat/airway and her breathing somewhat labored while on the morphine drip. Patient's shift nurse brought to my attention that [facility] present assessing the patient and hospitalist spoke with nurse from [facility] - her name is Sfoia and she is an RN. [facility] nurse recommends modifying the prn morphine dose for severe pain as 6 mg every 15 minutes as needed. This can be given in addition to the current morphine IV drip. -12/26/2019: IV morphine continuing. patient's friend at bedside reports that patient has not really been awake and only awakes to when being repositioned which appears to cause patient acute discomfort. patient generally sleeping. not eating or drinking water. Right upper extremity weakness, noted on this admission -no further work up per patient and family (5) Acute renal failure: (6) Septic shock: Septic shock and acute renal failure in setting of squamous cell carcinoma with necrotic vulvar wound on admission Hypomagnesemia on admission -admission BP 80s/40s; admission WBC 32,000; admission creatinine 4.35, admission serum magnesium 1.5, admission serum potassium 6.1 on 12/15/2019. no cultures were sent and no labs were drawn since because of patient and POA desire for non-aggressive measures and comfort care. Zosyn was initially given and also IV fluids - stopped when she and her family wished for comfort care. was given Lasix on 40 mg IV x 1 on 12/21/2019 for the bilateral lower extremity edema and magnesium supplements. patient then did not wish for further Lasix DNR/DNI. patient's POA, brother Stewart Keys who lives in [place] ([phone]), who confirmed plan to avoid aggressive measures and understands patient's condition and agrees with comfort care on this admission. he reports that when patient dies, hospital should help with coordinating the [facility] in [place] ([phone]) Admission and Anticipated Discharge Date Admission Date: December 15, 2019 Subjective IV morphine continuing. patient's friend at bedside reports that patient has not really been awake and only awakes to when being repositioned which appears to cause patient acute discomfort. patient generally sleeping. not eating or drinking water. Review of Systems Review of Systems: Unobtainable due to reduced consciousness Physical Exam Constitutional: sleeping ENMT: external ear and nose normal, oropharynx normal Neck: trachea midline, no thyromegaly normal visual inspection Respiratory: + labored breathing Cardiovascular: Rate/Rhythm: regular rate Chest (Breasts): Chest: + vascular access device or port Gastrointestinal (Abdomen): Percussion/Palpation: abdomen soft Musculoskeletal: Head/Neck/Chest: normocephalic and head atraumatic Extremities: + lower leg abnormality (bilateral lower extremity edema) Neurologic: sleeping Results & Data Results & Data ([facility]) Vital Signs (Past 12 Hours) Vital Signs Pulse Resp Pulse Ox 12/26/19 07:03 91 H 18 90
[2019-12-26] MEDS: MAGNESIUM OXIDE 400 MG TAB PO SCH (08:37)
[2019-12-26] MEDS: DOCUSATE SODIUM/SENNA 50/8.6MG TAB PO SCH ×2 (08:38→20:57)
[2019-12-27] MEDS: ATROPINE SULFATE 1% OP SOLN 2 ML BTL SL PRN ×14 (02:43→21:58)
[2019-12-27] MEDS: LORazepam 0.5 MG/1 ML VIAL IV PRN ×2 (04:15→11:45)
[2019-12-27] MEDS: MoRPHine SULFATE 4 MG/ML 1 ML CARP\\VIAL IV PRN ×15 (04:16→22:40)
[2019-12-27] MEDS: GLYCOPYRROLATE 0.2 MG/ML VIAL IV PRN ×2 (05:13→14:19)
[2019-12-27] MEDS: MoRPHine SULF/NSS 250 MG/250 ML BTL IV PRN ×2 (05:25→19:19)
[2019-12-27] MEDS ORDERED: LORazepam 0.5 MG/1 ML VIAL IV STA (05:38)
[2019-12-27] MEDS: CHECK SCOPOLAMINE PATCH PLACEMENT SCH ×2 (07:20→16:10)
[2019-12-27] MEDS: MAGNESIUM OXIDE 400 MG TAB PO SCH (07:20)
[2019-12-27] MEDS: DOCUSATE SODIUM/SENNA 50/8.6MG TAB PO SCH ×2 (07:21→20:13)
[2019-12-27] MEDS: ALBUT/IPRATROP 3MG/0.5MG NEB 3 ML VIAL NEB SCH ×2 (07:25→11:24)
--- NOTE | 2019-12-27 08:25 | Hospitalist Progress Note ---
Date of Service December 27, 2019 Assessment & Plan (1) Hospice care: Hospice care/Comfort Care measures Only (2) Uncontrolled pain: (3) Squamous cell carcinoma of vulva: (4) Open wound of vulva with complication: -as per history and physical "This is a 64-year-old female on hospice with PMH of uncontrolled pain 2/2 metastatic vulvar cancer status post chemoradiation on chronic methadone, CKD (recent baseline of 2.4 last month), chronic anemia (baseline hemoglobin of 7), CHF and other medical problems listed below who presents from home due to worsening chronic groin wound and uncontrolled pain. Home hospice unable to adequately care for patient at home due to large necrotic wound of groin with high output of fecal material as well as uncontrolled pain in setting of metastatic vulvar cancer. Attempted to place her in respite care/ SNF and were unsuccessful. Patient lives alone and family support is not local. Discussed with Dr. Yates, who is familiar with patient and arranged for [facility] hospice admission." She has been admitted under [facility] services through [facility] as they were unable to manage the care of her large necrotic groin wound and intractable cancer pain. -on this admission, palliative care following the patient. Patient on IV morphine drip for the pain control (12/20/2019 palliative care notes documents Morphine gtt has been increased to 9mg/hour so that there is 216 mg of Morphine over a 24 hour period), and Ativan 0.5 mg IV TID to help with anxiety and comfort. patient's preference is to go home with hospice but palliative care services are concerned about pain control at home and pain during transport -12/21/2019: family caseworker discussed with patient of facilities that may have hospice beds in near future -12/22/2019 updates: Nurse reports to medical doctor in AM of concerns patient having gurgling noises from the throat/mouth. Patient reports this started after supper on 12/21/2019. Nurse plans to help suction the patient, Medical doctor order scopolamine patch. Patient declined IV Lasix. Patient declined titrating down the IV morphine. -12/23/2019:Patient is sedated and her pupils are dilated. She is on morphine drip. Her nephew at bedside and patient's brother Stewart on the computer screen. Family wishes for patient to continue the morphine drip to allow her to pass away comfortably -12/24/2019: Patient seen this AM with nurse. Nurse reports patient opening eyes more. Patient is lethargic and mumbles in response to questions before going back to sleep -12/25/2019: Patient seen this AM. She is generally lethargic. She does open her eyes but no more than than 10 seconds before returning to sleep. She continues to have some gurgling sounds from her throat/airway and her breathing somewhat labored while on the morphine drip. Patient's shift nurse brought to my attention that [facility] present assessing the patient and hospitalist spoke with nurse from [facility] - her name is Sofia and she is an RN. [facility] nurse recommends modifying the prn morphine dose for severe pain as 6 mg every 15 minutes as needed. This can be given in addition to the current morphine IV drip. -12/26/2019: IV morphine continuing. patient's friend at bedside reports that patient has not really been awake and only awakes to when being repositioned which appears to cause patient acute discomfort. patient generally sleeping. not eating or drinking water. continues to be followed by palliative care services -12/27/2019: continues to be on IV morphine, patient's breathing appears less labored today. she is sleeping/obtunded with loud snoring. Right upper extremity weakness, noted on this admission -no further work up per patient and family (5) Acute renal failure: (6) Septic shock: Septic shock and acute renal failure in setting of squamous cell carcinoma with necrotic vulvar wound on admission Hypomagnesemia on admission -admission BP 80s/40s; admission WBC 32,000; admission creatinine 4.35, admission serum magnesium 1.5, admission serum potassium 6.1 on 12/15/2019. no cultures were sent and no labs were drawn since because of patient and POA desire for non-aggressive measures and comfort care. Zosyn was initially given and also IV fluids - stopped when she and her family wished for comfort care. was given Lasix on 40 mg IV x 1 on 12/21/2019 for the bilateral lower extremity edema and magnesium supplements. patient then did not wish for further Lasix DNR/DNI. patient's POA, brother Stewart Keys who lives in [place] ([phone]), who confirmed plan to avoid aggressive measures and understands patient's condition and agrees with comfort care on this admission. he reports that when patient dies, hospital should help with coordinating the [facility] in [place] ([phone]) Admission and Anticipated Discharge Date Admission Date: December 15, 2019 Subjective continues to be on IV morphine, patient's breathing appears less labored today. she is sleeping/obtunded with loud snoring. Review of Systems Review of Systems: Unobtainable due to cognitive status Physical Exam Constitutional: + lethargic ENMT: external ear and nose normal, oropharynx normal Neck: trachea midline, no thyromegaly normal visual inspection Respiratory: gurgling sound from throat. snoring Cardiovascular: Rate/Rhythm: regular rate Chest (Breasts): Chest: + vascular access device or port Gastrointestinal (Abdomen): Inspection/Auscultation: abdomen normal to inspection Percussion/Palpation: abdomen soft Musculoskeletal: Head/Neck/Chest: normocephalic and head atraumatic Extremities: + lower leg abnormality (bilateral lower extremity edema) Results & Data Results & Data ([facility]) Vital Signs (Past 12 Hours) Vital Signs Pulse Resp Pulse Ox 12/27/19 07:28 116 H 22 92
[2019-12-27] MEDS: LORazepam 0.5 MG/1 ML VIAL IV SCH ×2 (09:29→13:11)
[2019-12-27] MEDS ORDERED: ATROPINE SULFATE 1% OP SOLN 2 ML BTL SL SCH (12:45)
[2019-12-27] MEDS ORDERED: ALBUT/IPRATROP 3MG/0.5MG NEB 3 ML VIAL NEB PRN (13:57)
[2019-12-27] MEDS ORDERED: MoRPHine SULFATE 10 MG/ML CARP/VIAL IV STA (14:05)
[2019-12-27] MEDS: LORazepam 1 MG/2 ML VIAL IV SCH (16:49)
--- NOTE | 2019-12-27 17:11 | Palliative Care Progress Note ---
Date of Service December 27, 2019 Assessment & Plan (1) Goals of care, counseling/discussion: Patient is a 64-year-old female with metastatic vulvar cancer-admitted [facility] for uncontrolled pain. Patient requiring morphine drip -titrated now to 20 mg an hour. Excess oral secretions still an issue-we will increase atropine. To prevent opioid toxicity-we will increase scheduled Ativan for its synergistic effect with the morphine-titrate to comfort. (2) Open wound of vulva with complication: (3) Uncontrolled pain: (4) Chronic pain due to malignant neoplastic disease: (5) Vulva cancer: Subjective Patient seen and examined, patient's nephew, Mohamud, at bedside. Patient continues to have excess oral secretions-we will increase her atropine drops. Patient required multiple boluses in addition to her continuous rate morphine via [employer] LEVEL RECEPTIONIST-recommend increasing Ativan for synergistic effect. Discussed plan of care with attending as well as nursing and nephew at bedside Review of Systems Review of Systems: Unobtainable due to reduced consciousness Physical Exam Physical Exam: PE: Patient unresponsive to voice or touch, no grimace with passive range of motion of left upper extremity HEENT: Dry mucous membranes, positive for excess oral secretions Respirations: Unlabored CV: Tachycardic Abdomen: No grimace with palpation, diminished bowel sounds Skin: Warm, no mottling Neuro: Patient unresponsive Results & Data Vital Signs (Past 12 Hours) Vital Signs Pulse Resp Pulse Ox 12/27/19 11:24 110 H 22 90 12/27/19 07:28 116 H 22 92 PG Care Time/CCT Total # of Minutes Spent Total Time Spent with Patient: Total time spent 35 minutes with greater than 50% of the time spent at bedside reviewing patient's current status, plan of care and prognosis with family at bedside, collaborated with attending physician Coding Level of Care Code 05682 Subseq Hosp Care Lvl 3 Diagnoses Goals of care, counseling/discussion Z71.89 Open wound of vulva with complication S31.40XA Uncontrolled pain R52 Chronic pain due to malignant neoplastic disease G89.3 Vulva cancer C51.9 Time Spent (min) 35
[2019-12-28] MEDS: CHECK SCOPOLAMINE PATCH PLACEMENT SCH ×3 (00:25→16:09)
[2019-12-28] MEDS: LORazepam 1 MG/2 ML VIAL IV SCH ×5 (00:25→23:37)
[2019-12-28] MEDS: ATROPINE SULFATE 1% OP SOLN 2 ML BTL SL PRN ×12 (00:26→18:16)
[2019-12-28] MEDS: MoRPHine SULFATE 4 MG/ML 1 ML CARP\\VIAL IV PRN ×2 (03:05→07:54)
[2019-12-28] MEDS ORDERED: MoRPHine SULFATE 10 MG/ML CARP/VIAL ONE (07:48)
[2019-12-28] MEDS: LORazepam 0.5 MG/1 ML VIAL IV PRN ×2 (07:54→14:02)
[2019-12-28] MEDS: MAGNESIUM OXIDE 400 MG TAB PO SCH (07:55)
[2019-12-28] MEDS: DOCUSATE SODIUM/SENNA 50/8.6MG TAB PO SCH ×2 (07:55→20:02)
[2019-12-28] MEDS: MoRPHine SULF/NSS 250 MG/250 ML BTL IV PRN ×2 (09:01→21:23)
[2019-12-28] MEDS: SCOPOLAMINE 1.5 MG TDSY TD SCH (09:11)
[2019-12-28] MEDS: MoRPHine SULFATE 10 MG/ML CARP/VIAL IV PRN ×4 (10:05→14:59)
[2019-12-28] MEDS: GLYCOPYRROLATE 0.2 MG/ML VIAL IV PRN ×2 (10:05→19:44)
--- NOTE | 2019-12-28 15:53 | Hospitalist Progress Note ---
Date of Service December 28, 2019 Assessment & Plan (1) Hospice care: Hospice care/Comfort Care measures Only (2) Uncontrolled pain: (3) Squamous cell carcinoma of vulva: (4) Open wound of vulva with complication: on comfort measures status continue Morphine drip, Ativan, Scop Patch, Atropine drops discussed with RN Right upper extremity weakness, noted on this admission -no further work up per patient and family (5) Acute renal failure: (6) Septic shock: per Dr. Shreyas Salazar's notes: Septic shock and acute renal failure in setting of squamous cell carcinoma with necrotic vulvar wound on admission Hypomagnesemia on admission -admission BP 80s/40s; admission WBC 32,000; admission creatinine 4.35, admission serum magnesium 1.5, admission serum potassium 6.1 on 12/15/2019. no cultures were sent and no labs were drawn since because of patient and POA desire for non-aggressive measures and comfort care. Zosyn was initially given and also IV fluids - stopped when she and her family wished for comfort care. was given Lasix on 40 mg IV x 1 on 12/21/2019 for the bilateral lower extremity edema and magnesium supplements. patient then did not wish for further Lasix DNR/DNI. Admission and Anticipated Discharge Date Admission Date: December 15, 2019 Subjective ff up for comfort measures status only discussed with TERELL Milligan patient appears more comfortable today per TERELL Milligan, having secretion, Scop patch on and Atropine Drops being administered seen resting in bed, not in distress very lethargic no other signs noted Review of Systems Review of Systems: All systems reviewed & are unremarkable except as noted in HPI & below Physical Exam Physical Exam: General- very lethargic, not in distress Lungs- (+) crackles bilaterally Heart- normal rate, regular rhythm Extremities- mild edema Neuro- alert, oriented x 3; no gross focal neurologic deficits Skin- warm & dry
[2019-12-29] MEDS: CHECK SCOPOLAMINE PATCH PLACEMENT SCH ×3 (00:10→17:15)
[2019-12-29] MEDS: ATROPINE SULFATE 1% OP SOLN 2 ML BTL SL PRN ×8 (04:20→18:44)
[2019-12-29] MEDS: LORazepam 1 MG/2 ML VIAL IV SCH ×3 (05:27→17:15)
[2019-12-29] MEDS: DOCUSATE SODIUM/SENNA 50/8.6MG TAB PO SCH ×2 (07:30→23:41)
[2019-12-29] MEDS: MAGNESIUM OXIDE 400 MG TAB PO SCH (07:30)
[2019-12-29] MEDS: MoRPHine SULFATE 10 MG/ML CARP/VIAL IV PRN ×9 (07:48→18:43)
[2019-12-29] MEDS: LORazepam 0.5 MG/1 ML VIAL IV PRN ×2 (07:48→12:57)
[2019-12-29] MEDS: MoRPHine SULF/NSS 250 MG/250 ML BTL IV PRN ×2 (10:25→23:19)
[2019-12-29] MEDS: GLYCOPYRROLATE 0.2 MG/ML VIAL IV PRN ×3 (10:29→23:56)
[2019-12-29] MEDS ORDERED: PHENobarbital sodium 130 MG/ML VIAL IV PRN (14:42)
[2019-12-29] MEDS ORDERED: PHENOBARBITAL SODIUM IV PRN (14:47)
[2019-12-29] MEDS: LORazepam 1 MG/2 ML VIAL IV PRN (15:00)
--- NOTE | 2019-12-29 15:21 | Palliative Care Progress Note ---
Date of Service December 29, 2019 Assessment & Plan (1) Goals of care, counseling/discussion: Patient is a 64-year-old female with metastatic vulvar cancer-admitted [facility] for uncontrolled pain. Patient requiring morphine drip -currently on 20 mg an hour plus as needed boluses. Ativan is scheduled every 6 hours plus as needed dosing. We will add phenobarbital 15 mg IV every 8 hours as needed-may titrate by 15 mg each dose as needed. Patient now mottled with cool extremities, expect demise in the next 24 hours. (2) Open wound of vulva with complication: (3) Uncontrolled pain: (4) Chronic pain due to malignant neoplastic disease: (5) Vulva cancer: Admission and Anticipated Discharge Date Admission Date: December 15, 2019 Subjective Patient seen and examined in room 279, patient's nephewMohamud at bedside. Nursing also at bedside. Patient on a morphine drip at 20 mg/h with as needed boluses. She is also receiving Ativan 1 mg every 6 hours scheduled +0.5 mg as needed.. Nursing reports patient still has severe pain when having to do a dressing change. On exam patient is starting to have expiratory moan which can be a sign of early opioid toxicity-collaborated with pharmacy regarding phenobarb dosing. We will start phenobarb at 15 mg every 8 hours as needed, can be titrated upward at 15 mg per dose as needed. Phenobarbital will have a longer half-life than Ativan. Patient with cool hands and feet, right foot significantly mottled, patient nearing end-of-life. Expect her to in the next 24 hours. Patient's nephew is aware and is happy with her level of comfort. Review of Systems Review of Systems: Unobtainable due to reduced consciousness Physical Exam Physical Exam: PE: Patient unresponsive to voice or touch HEENT: Dry mucous membranes, excess oral secretions Respirations: Unlabored CV: Tachycardic, positive lower extremity edema Abdomen: Decreased bowel sounds Skin: Hands and feet cool to touch, right foot significantly mottled, left foot early mottling. Neuro: Unresponsive except to severe pain PG Care Time/CCT Total # of Minutes Spent Total Time Spent with Patient: Total time spent 35 minutes with greater than 50% of the time spent at bedside assessing patient's current comfort level discussing end-of-life issues with nephew at bedside as well as collaborating with nursing and pharmacy. Coding Level of Care Code 57636 Subseq Hosp Care Lvl 3 Diagnoses Goals of care, counseling/discussion Z71.89 Open wound of vulva with complication S31.40XA Uncontrolled pain R52 Chronic pain due to malignant neoplastic disease G89.3 Vulva cancer C51.9 Time Spent (min) 35
--- NOTE | 2019-12-29 16:54 | Hospitalist Progress Note ---
Date of Service December 29, 2019 Assessment & Plan (1) Hospice care: Hospice care/Comfort Care measures Only (2) Uncontrolled pain: (3) Squamous cell carcinoma of vulva: (4) Open wound of vulva with complication: on comfort measures status Morphine and Ativan increased Phenobarbital ordered discussed with TERELL Milligan and Dr. Yates Right upper extremity weakness, noted on this admission -no further work up per patient and family (5) Acute renal failure: (6) Septic shock: per Dr. Shreyas Salazar's notes: Septic shock and acute renal failure in setting of squamous cell carcinoma with necrotic vulvar wound on admission Hypomagnesemia on admission -admission BP 80s/40s; admission WBC 32,000; admission creatinine 4.35, admission serum magnesium 1.5, admission serum potassium 6.1 on 12/15/2019. no cultures were sent and no labs were drawn since because of patient and POA desire for non-aggressive measures and comfort care. Zosyn was initially given and also IV fluids - stopped when she and her family wished for comfort care. was given Lasix on 40 mg IV x 1 on 12/21/2019 for the bilateral lower extremity edema and magnesium supplements. patient then did not wish for further Lasix DNR/DNI. Admission and Anticipated Discharge Date Admission Date: December 15, 2019 Subjective ff up for vulvar cancer, wound infection, comfort measures status more uncomfortable, tachypneic per TERELL Milligan seen at bedside, obtunded, (+) crackles noted, mild tachypnea ordered to increase Morphine PRN to 8mg [id number], Ativan increased as well discussed with Dr. Yatse, Phenobarbital ordered Review of Systems Review of Systems: Unobtainable due to cognitive status Physical Exam Physical Exam: General- obtunded, mild tachypnea Lungs- (+) crackles Extremities- (+) edema
[2019-12-30] MEDS: LORazepam 1 MG/2 ML VIAL IV SCH ×3 (00:15→12:03)
[2019-12-30] MEDS: CHECK SCOPOLAMINE PATCH PLACEMENT SCH ×3 (00:16→15:53)
[2019-12-30] MEDS: LORazepam 1 MG/2 ML VIAL IV PRN (03:43)
[2019-12-30] MEDS: ATROPINE SULFATE 1% OP SOLN 2 ML BTL SL PRN ×5 (03:46→15:53)
[2019-12-30] MEDS: MoRPHine SULFATE 10 MG/ML CARP/VIAL IV PRN ×3 (05:51→14:15)
[2019-12-30] MEDS: DOCUSATE SODIUM/SENNA 50/8.6MG TAB PO SCH (07:36)
[2019-12-30] MEDS: MAGNESIUM OXIDE 400 MG TAB PO SCH (07:36)
[2019-12-30] MEDS: GLYCOPYRROLATE 0.2 MG/ML VIAL IV PRN (09:09)
[2019-12-30] MEDS: MoRPHine SULF/NSS 250 MG/250 ML BTL IV PRN (12:01)
--- NOTE | 2019-12-30 17:44 | Hospitalist Progress Note ---
Date of Service December 30, 2019 Assessment & Plan (1) Hospice care: Hospice care/Comfort Care measures Only (2) Uncontrolled pain: (3) Squamous cell carcinoma of vulva: (4) Open wound of vulva with complication: on comfort measures status Morphine and Ativan increased, more comfortable today PRN phenobarbital ordered discussed with TERELL Jett at the bedside Right upper extremity weakness, noted on this admission -no further work up per patient and family (5) Acute renal failure: (6) Septic shock: per Dr. Shreyas Salazar's notes: Septic shock and acute renal failure in setting of squamous cell carcinoma with necrotic vulvar wound on admission Hypomagnesemia on admission -admission BP 80s/40s; admission WBC 32,000; admission creatinine 4.35, admission serum magnesium 1.5, admission serum potassium 6.1 on 12/15/2019. no cultures were sent and no labs were drawn since because of patient and POA desire for non-aggressive measures and comfort care. Zosyn was initially given and also IV fluids - stopped when she and her family wished for comfort care. was given Lasix on 40 mg IV x 1 on 12/21/2019 for the bilateral lower extremity edema and magnesium supplements. patient then did not wish for further Lasix DNR/DNI. Admission and Anticipated Discharge Date Admission Date: December 15, 2019 Subjective Follow-up for vulvar cancer, with wound infection Comfort measures status only Seen with TERELL Jett at the bedside Patient appears more comfortable today Obtunded, not in distress Some crackles noted, but not tachypneic Review of Systems Review of Systems: Unobtainable due to cognitive status Physical Exam Physical Exam: General-obtunded, mild tachypnea, not in distress Lungs-crackles noted Extremities-edema noted
--- NOTE | 2020-01-04 10:54 | Discharge Summary ---
Date of Service January 04, 2020 Admission HPI Per Admitting Provider This is a 64-year-old female on hospice with PMH of uncontrolled pain 2/2 metastatic vulvar cancer status post chemoradiation on chronic methadone, CKD (recent baseline of 2.4 last month), chronic anemia (baseline hemoglobin of 7), CHF and other medical problems listed below who presents from home due to worsening chronic groin wound and uncontrolled pain. Patient has been following with [facility] oncology for vulvar cancer for the past few years and has undergone chemo and been intolerant to XRT. PET/CT from August 2019 showed disease progression and home hospice recommended by oncologist. Has also been following with [facility] wound care for palliative debridement and treatment but has been having increased fecal output at home, to the point that home hospice felt patient would be better cared for in the hospital. Also attempted to place her in respite care/ SNF and were unsuccessful. When patient initially evaluated, was able to express diffuse pain, specifically in area of wound. Expressed that she is okay with IV fluids and antibiotics but is not interested in any resuscitative efforts such as CPR, shock, intubation or IV pressors for blood pressure support. BP 80s/40s, now 75/38 despite aggressive IV fluid resuscitation. Was started on empiric Zosyn with wound cultures drawn. Has been receiving IV morphine for pain control and has become become more lethargic. Now unable to answer questions. Dr. Christy and I discussed situation with patient's POA, brother Stewart Keys who lives in [place] ([phone]), that unfortunately condition is not improving in emergency room. Stewart confirmed plan to avoid aggressive measures, understands patient's condition and agrees with comfort care. Also discussed with Dr. Yates, who is familiar with patient and arranged for [facility] hospice admission. Unable to assess ROS due to patient's altered state. Admission Exam Per Admitting Provider General Appearance: Ill appearing, morbidly obese, lethargic but able to answer yes/no questions Head: normocephalic, atraumatic Eyes: normal inspection, PERRL ENT: external ear and nose normal, oropharynx normal Neck: trachea midline, no thyromegaly, normal visual inspection Respiratory: normal respiratory effort, coarse breath sounds to auscultation, no wheeze, rales, rhonchi. No accessory muscle use Cardiovascular: bradycardic rate, regular rhythm, no murmur appreciated, normal peripheral pulses, no BLE edema. Vessels: no JVD Chest: normal inspection of chest Abdomen/GI: normal bowel sounds, soft, nontender, no hepatosplenomegaly : Necrotic wound of labia extending to groin with significant amount of stool and serosanguineous fluid visualized Extremities/Musculoskeletal: no cyanosis or clubbing, extremities motor strength 5/5 Neurologic: PERRL, EOMI,no dysarthria, CN's II-XI intact bilaterally and moves all extremities Psychiatric: A+Ox3 but lethargic. +Visual hallucinations near end of exam Skin: no rashes, normal color, warm/dry. + See Principal Diagnosis Infected Inguinal Wound, Vulvar Cancer Discharge Exam patient Discharge Data Allergies Allergy/AdvReac Type Severity Reaction Status Date / Time iodine Allergy Severe TROUBLE Verified 12/15/19 14:44 BREATHING AND NEED EPI PEN aspirin Allergy Intermediate HIVES, Verified 12/15/19 14:44 ITCHING naproxen Allergy Intermediate HIVES Verified 12/15/19 14:44 IV CONTRAST=RESPIRATORY Allergy Severe TROUBLE Uncoded 12/15/19 14:44 DIFFICULTIES BREATHING IV DYE Allergy Severe TROUBLE Uncoded 12/15/19 14:44 BREATHING PINEAPPLE=SWOLLEN LIPS AND Allergy Intermediate LIPS AND Uncoded 12/15/19 14:44 TONGUE TONGUE SWELL SMOKE Allergy Unknown Unknown Uncoded 12/15/19 14:44 Consultations 12/15/19 14:26 ED Decision to Admit Stat 12/15/19 20:35 Consult Case Management - Discharge Planning Routine Consult Case Management - Discharge Planning Routine Consult Palliative Care Routine Hospital Course (1) Hospice care: Hospice care/Comfort Care measures Only (2) Uncontrolled pain: (3) Squamous cell carcinoma of vulva: (4) Open wound of vulva with complication: Palliative Care Service consulted Placed on Morphine and Ativan, Phenobarbital PRN patient pronounced 12/30/19 Right upper extremity weakness, noted on this admission -no further work up per patient and family (5) Acute renal failure: (6) Septic shock: per Dr. Shreyas Salazar's notes: Septic shock and acute renal failure in setting of squamous cell carcinoma with necrotic vulvar wound on admission Hypomagnesemia on admission -admission BP 80s/40s; admission WBC 32,000; admission creatinine 4.35, admission serum magnesium 1.5, admission serum potassium 6.1 on 12/15/2019. no cultures were sent and no labs were drawn since because of patient and POA desire for non-aggressive measures and comfort care. Zosyn was initially given and also IV fluids - stopped when she and her family wished for comfort care. was given Lasix on 40 mg IV x 1 on 12/21/2019 for the bilateral lower extremity edema and magnesium supplements. patient then did not wish for further Lasix DNR/DNI. Total Time Total Time Spent Total Time Spent (In Minutes): 45 mins Discharge Plan Discharge Items Patient Disposition: Discharge Diagnosis: Septic shock and acute renal failure in setting of squamous cell carcinoma with necrotic vulvar wound on admission Hypomagnesemia on admission Hospice Care / Comfort care measures Uncontrolled pain: Squamous cell carcinoma of vulva with Open wound of vulva
== END 2019-12-30 22:39 | disposition expired | DRG 951 ==
LOC: ED 14:05 → SUATTDRO 15:29 → 2N 15:29